=== PATIENT | male | born 1945 | race Caucasian/White ===

== ENCOUNTER 2024-03-18 07:23 | Inpatient (IN) ==
--- NOTE | 2024-03-18 07:38 | Emergency Department Note ---
Impression & Plan Weakness, Difficulty swallowing, Anemia, Pneumonia, Leukocytosis, Weight loss ED Provider Note NAME: FRANCES PÉREZ AGE: 78 SEX: M : 1945 ARRIVES VIA: Ambulance INFORMANT: [Patient] ED PROVIDER(S): [Devante Barajas MD] CHIEF COMPLAINT: Weakness HISTORY OF PRESENT ILLNESS: The patient is a 78-year-old male who lives alone. He does have a daughter who lives locally that visits from time to time. The patient states that he is responsible for his own meals. Over the last few months, the patient has lost maybe 40 pounds. He states the weight loss is because he cannot swallow. He only can drink boost. He cannot swallow solid foods and he believes the esophagus may be his problem. There has been no fever, no shortness of breath. He has not had vomiting or diarrhea. He has noticed increasing weakness lately to the point where he feels he can no longer be at home by himself. PMHx/PSHx/Social Hx: See Below PHYSICAL EXAM: GENERAL: Patient is in no acute distress. Quite thin and frail. HEENT: No acute trauma, normocephalic atraumatic, mucous membranes moist, no nasal congestion. NECK: No stridor, no adenopathy, no meningismus, trachea is midline. LUNGS: Clear to auscultation bilaterally, no wheeze, no rhonchi, breath sounds equal. Breath sounds somewhat diminished bilaterally. HEART: 2/6 systolic murmur, regular rate and rhythm. ABDOMEN: Soft, nontender, no peritonitis. EXTREMITIES: No cyanosis, full range of motion of all the joints without pain or difficulty. NEUROLOGIC: Oriented x 3, no acute motor or sensory deficits, no focal weakness. SKIN: No jaundice, no diaphoresis. DIFFERENTIAL DIAGNOSIS: Debilitation, dehydration, electrolyte imbalance, malnutrition, viral illness, pneumonia, esophageal narrowing, reflux, anemia, among others. EMERGENCY DEPARTMENT PROCEDURES: MEDICAL DECISION MAKING: There is a moderate leukocytosis, this would be consistent with infection. The patient is anemic, he has been anemic before however, today's value is below his previous values. Platelet count was slightly elevated. No renal failure or significant electrolyte abnormality. Lactic acid level is not elevated making sepsis less likely. There was no concerning liver enzyme elevation. The patient appeared to be in a euthyroid state. Urinalysis did not show infection. ECG showed a sinus rhythm, no acute ischemic change. Cardiac enzyme testing x 1 was not consistent with acute cardiac injury. Respiratory bio fire was completely negative. Chest CT shows a right sided pneumonia involving the right upper and right middle lung. On exam, the patient's lungs were clear. He was quite thin and frail appearing. The patient was given IV saline, 1 L. He received IV ceftriaxone as antibiotic coverage. The patient complains of some difficulty swallowing and weight loss. He was found to have pneumonia on workup. I suspect the pneumonia is secondary to aspiration. Given his findings, given his complaints, a hospital stay is warranted. I did speak with the patient and case management, the on-call hospitalist was consulted. Prior/Outside records/notes reviewed: Today's EMS notes describing his presentation and transport to this hospital. ECG per my interpretation: Indication was weakness. The ECG shows a sinus rhythm with a first-degree AV block. The rate is 90. There is some diffuse nonspecific ST change. There is no acute ST elevation, there are no PVCs. The QTc was 543. Continuous Cardiac Monitoring per my interpretation: An order was placed for continuous cardiac monitoring. The monitor shows a rate of 92 with normal sinus rhythm. Imaging/x-ray results per my interpretation: Chest x-ray shows a right upper lung pneumonia. There was no CHF. Chronic Medical/Social conditions affecting care: Advanced age. Care/Management discussed with: Case management, the on-call hospitalist. Level of care consideration(s): After review of the information above and other included data: --I believe the patient requires escalation of care to admission DISPOSITION: Admission Past Med/Surg History Problem List Weight loss (Acute) Leukocytosis (Acute) Pneumonia (Acute) Anemia (Acute) Difficulty swallowing (Acute) Weakness (Acute) Dysphagia Necrotizing pneumonia Aortic stenosis Hypercholesterolemia Right-sided lacunar stroke Left hemiparesis Ataxia (Acute) Left arm weakness (Acute) Hypertension Diabetes Cortez's palsy (Acute) Coronary artery disease (Chronic) Murmur Post-operative state Medical History CAD (coronary artery disease) Type 2 diabetes mellitus Pre-operative cardiovascular examination Dyslipidemia Social History Smoking Status: Former smoker Tobacco Type: Pipe Hx Alcohol Use: Yes Alcohol type: beer and wine Hx Substance Use: No Preferred Language: Persian Communication Ability: Effective Beliefs That Will Affect Care: None Current Living Situation: Alone Feels Safe at Home: Yes Assistive Devices: None Allergies Allergies Allergy/AdvReac Type Severity Reaction Status Date / Time No Known Allergies Allergy Verified 09/22/20 02:36 Home Meds Home Medications Medication Instructions 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 Botanical 1 tab PO DAILY 09/03/20 03/18/24 ascorbic acid (vitamin C) 1,000 mg 1 g PO DAILY 09/03/20 03/18/24 tablet (Vitamin C) aspirin 81 mg tablet,delayed 81 mg PO DAILY 09/03/20 03/18/24 release coenzyme Q10 100 mg capsule 600 mg PO DAILY 09/03/20 03/18/24 (CoQ-10) garlic 2,000 mg PO DAILY 09/03/20 03/18/24 isosorbide mononitrate 60 mg 60 mg PO DAILYBB 09/03/20 03/18/24 tablet,extended release 24 hr melatonin 5 mg tablet 5 mg PO HS 09/03/20 03/18/24 metformin 500 mg tablet 500 mg PO BID 09/03/20 03/18/24 (Glucophage) nitroglycerin 0.4 mg sublingual 0.4 mg sublingual UD PRN Chest Pain 09/03/20 03/18/24 tablet (Nitrostat) pantoprazole 40 mg tablet,delayed 40 mg PO UD 09/03/20 03/18/24 release saw palmetto 80 mg capsule 320 mg PO BID 09/03/20 03/18/24 tamsulosin 0.4 mg capsule (Flomax) 0.4 mg PO HS 09/03/20 03/18/24 [place] Bark Extract 1 tab PO DAILY 09/04/20 03/18/24 cholecalciferol (vitamin D3) 125 125 mcg PO DAILY 09/04/20 03/18/24 mcg (5,000 unit) tablet (Vitamin D3) multivitamin 1 tab PO DAILY 09/04/20 03/18/24 sennosides 8.6 mg tablet (senna) 17.2 mg PO HS 09/04/20 03/18/24 vitamin B complex 1 tab PO DAILY 09/04/20 03/18/24 atorvastatin 40 mg tablet 40 mg PO DAILY 09/22/20 03/18/24 omega 5-kaw-tnt-fish oil 1,000 mg 1 cap PO DAILY 09/22/20 03/18/24 (120 mg-180 mg) capsule (Fish Oil) zinc sulfate 50 mg zinc (220 mg) 220 mg PO DAILY PRN Other 09/22/20 03/18/24 tablet acetaminophen 325 mg capsule 650 mg PO Q4H PRN Pain 10/24/20 03/18/24 (Tylenol) lisinopril 2.5 mg tablet 2.5 mg PO DAILY 10/24/20 03/18/24 metoprolol tartrate 50 mg tablet 12.5 mg PO BID 10/24/20 03/18/24 (Lopressor) Calcium And Magnesium 1 tab PO DAILY 03/18/24 03/18/24 gabapentin 100 mg capsule 200 mg PO HS 03/18/24 03/18/24 (Neurontin) Results & Data (ED) Vital Signs Vital Signs - 24 hr 03/18/24 07:34 03/18/24 07:41 03/18/24 08:14 Temperature 37.2 C Temperature Source Oral Pulse Rate 92 H 90 86 Pulse Rate from SpO2 Sensor Pulse Rhythm Regular Regular Pulse Strength Normal Respiratory Rate 20 17 Respiratory Effort / Characteristics Non-Labored Spontaneous Respiratory Depth Normal Respiratory Pattern Regular Blood Pressure 103/81 Blood Pressure Mean 88 Blood Pressure Position Lying Pulse Oximetry 97 97 Oxygen Delivery Method Room Air Room Air Sepsis Recent Fever Within 48 Hours No Sepsis New/Unexplained Change in Mental Status No Sepsis Action Taken by Nursing No Action Required 03/18/24 11:00 03/18/24 11:35 03/18/24 12:00 Temperature Temperature Source Pulse Rate 87 84 81 Pulse Rate from SpO2 Sensor 85 83 Pulse Rhythm Pulse Strength Respiratory Rate 21 17 Respiratory Effort / Characteristics Respiratory Depth Respiratory Pattern Blood Pressure 108/60 103/53 L Blood Pressure Mean 76 69 Blood Pressure Position Pulse Oximetry 96 96 Oxygen Delivery Method Sepsis Recent Fever Within 48 Hours Sepsis New/Unexplained Change in Mental Status Sepsis Action Taken by Detention Medications Current Medication List: was personally reviewed by me Laboratory Data Attestation: I reviewed the patient's lab results. 03/18/24 08:01 03/18/24 08:01 Lab Results 03/18/24 03/18/24 03/18/24 Range/Units 08:01 08:05 08:05 WBC 17.69 H (4.8-10.8) K/ul RBC 3.78 L (4.70-6.10) M/uL Hgb 10.9 L (14.0-18.0) g/dl Hct 33.1 L (42.0-52.0) % MCV 87.6 (80.0-100.0) fL MCH 28.8 (25.0-34.0) pg MCHC 32.9 (32.0-36.0) g/dL RDW Std Deviation 41.3 (36.4-46.3) fL RDW Coeff of [place] 12.9 (11.5-14.5) % Plt Count 453 H (130-400) K/uL MPV 9.9 (9.4-12.4) fL Immature Gran % (Auto) 0.4 % Neut % (Auto) 87.9 % Lymph % (Auto) 3.8 % [place] % (Auto) 6.6 % Eos % (Auto) 1.1 % Baso % (Auto) 0.2 % Neut # (Auto) 15.56 H (1.40-6.50) K/uL Lymph # (Auto) 0.67 L (1.20-3.40) K/uL [place] # (Auto) 1.17 H (0.11-0.59) K/uL Eos # (Auto) 0.19 (0.00-0.50) K/uL Baso # (Auto) 0.03 (0.00-0.20) K/uL Immature Gran # (Auto) 0.07 (0.01-0.20) K/uL Sodium 136 (136-145) mmol/L Potassium 3.8 (3.5-5.1) mmol/L Chloride 96 L (98-107) mmol/L Carbon Dioxide 32 (21-32) mmol/L Anion Gap 8 (3-11) BUN 33 H (6-23) mg/dl Creatinine 0.94 (0.6-1.4) mg/dl Est Cr Clr Drug Dosing 54.6 ml/min Est GFR ( Amer) 89.6 ml/min Est GFR (Non-Af Amer) 77.3 ml/min BUN/Creatinine Ratio 35.1 H (10-20) Glucose 113 H (70-99(Fasting)) mg/dl Lactate (0.4-2.0) mmol/L Calcium 10.2 (8.6-10.3) mg/dl Magnesium 2.2 (1.7-2.4) mg/dl Total Bilirubin 0.6 (0.2-1.0) mg/dl AST 18 (13-39) U/L ALT 14 (7-52) U/L Alkaline Phosphatase 96 (34-104) U/L Troponin I High Sens 16.0 (0-20) pg/ml Total Protein 7.1 (6.0-8.3) gm/dl Albumin 3.4 (3.4-5.0) gm/dl Globulin 3.7 (2.5-4.0) gm/dl Albumin/Globulin Ratio 0.9 (0.9-2) TSH 2.995 (0.300-4.500) uIu/ml Urine Color Urine Appearance (Clear) Urine pH (4.5-7.5) Ur Specific [place] (1.000-1.030) Urine Protein (Negative) Urine Glucose (UA) (Negative) Urine Ketones (Negative) Urine Blood (Negative) Urine Nitrite (Negative) Urine Bilirubin (Negative) Urine Urobilinogen (Negative) Ur Leukocyte Esterase (Negative) Urine WBC (Auto) (0-5) /hpf Urine RBC (Auto) (0-2) /hpf U Hyaline Cast (Auto) (0-2) /lpf U Epithel Cells (Auto) (0-2) /hpf Urine Bacteria (Auto) (None Seen) Adenovirus (PCR) Not Detected (NotDetected) B. pertussis DNA (PCR) Not Detected (NotDetected) B.parapertussis DNA PCR Not Detected (NotDetected) C. pneumoniae DNA (PCR) Not Detected (NotDetected) Coronavirus OC43 (PCR) Not Detected (NotDetected) Coronavirus HKU1 (PCR) Not Detected (NotDetected) Coronavirus 229E (PCR) Not Detected (NotDetected) SARS-CoV-2 (PCR) NEGATIVE Not Detected (Negative) Coronavirus NL63 (PCR) Not Detected (NotDetected) Human Metapneumovir PCR Not Detected (NotDetected) Influenza Type A (PCR) Negative (Neg) Influenza Type B (PCR) (Neg) M. pneumoniae (PCR) (NotDetected) Parainfluenza 1 (PCR) (NotDetected) Parainfluenza 2 (PCR) (NotDetected) Parainfluenza 3 (PCR) (NotDetected) Parainfluenza 4 (PCR) (NotDetected) RSV (RT-PCR) (Neg) RSV (PCR) (NotDetected) Entero/Rhino (PCR) (NotDetected) 03/18/24 03/18/24 03/18/24 Range/Units 08:05 08:05 08:33 WBC (4.8-10.8) K/ul RBC (4.70-6.10) M/uL Hgb (14.0-18.0) g/dl Hct (42.0-52.0) % MCV (80.0-100.0) fL MCH (25.0-34.0) pg MCHC (32.0-36.0) g/dL RDW Std Deviation (36.4-46.3) fL RDW Coeff of [place] (11.5-14.5) % Plt Count (130-400) K/uL MPV (9.4-12.4) fL Immature Gran % (Auto) % Neut % (Auto) % Lymph % (Auto) % [place] % (Auto) % Eos % (Auto) % Baso % (Auto) % Neut # (Auto) (1.40-6.50) K/uL Lymph # (Auto) (1.20-3.40) K/uL [place] # (Auto) (0.11-0.59) K/uL Eos # (Auto) (0.00-0.50) K/uL Baso # (Auto) (0.00-0.20) K/uL Immature Gran # (Auto) (0.01-0.20) K/uL Sodium (136-145) mmol/L Potassium (3.5-5.1) mmol/L Chloride (98-107) mmol/L Carbon Dioxide (21-32) mmol/L Anion Gap (3-11) BUN (6-23) mg/dl Creatinine (0.6-1.4) mg/dl Est Cr Clr Drug Dosing ml/min Est GFR ( Amer) ml/min Est GFR (Non-Af Amer) ml/min BUN/Creatinine Ratio (10-20) Glucose (70-99(Fasting)) mg/dl Lactate 1.0 (0.4-2.0) mmol/L Calcium (8.6-10.3) mg/dl Magnesium (1.7-2.4) mg/dl Total Bilirubin (0.2-1.0) mg/dl AST (13-39) U/L ALT (7-52) U/L Alkaline Phosphatase (34-104) U/L Troponin I High Sens (0-20) pg/ml Total Protein (6.0-8.3) gm/dl Albumin (3.4-5.0) gm/dl Globulin (2.5-4.0) gm/dl Albumin/Globulin Ratio (0.9-2) TSH (0.300-4.500) uIu/ml Urine Color Urine Appearance (Clear) Urine pH (4.5-7.5) Ur Specific [place] (1.000-1.030) Urine Protein (Negative) Urine Glucose (UA) (Negative) Urine Ketones (Negative) Urine Blood (Negative) Urine Nitrite (Negative) Urine Bilirubin (Negative) Urine Urobilinogen (Negative) Ur Leukocyte Esterase (Negative) Urine WBC (Auto) (0-5) /hpf Urine RBC (Auto) (0-2) /hpf U Hyaline Cast (Auto) (0-2) /lpf U Epithel Cells (Auto) (0-2) /hpf Urine Bacteria (Auto) (None Seen) Adenovirus (PCR) (NotDetected) B. pertussis DNA (PCR) (NotDetected) B.parapertussis DNA PCR (NotDetected) C. pneumoniae DNA (PCR) (NotDetected) Coronavirus OC43 (PCR) (NotDetected) Coronavirus HKU1 (PCR) (NotDetected) Coronavirus 229E (PCR) (NotDetected) SARS-CoV-2 (PCR) (Negative) Coronavirus NL63 (PCR) (NotDetected) Human Metapneumovir PCR (NotDetected) Influenza Type A (PCR) Not Detected (Neg) Influenza Type B (PCR) Negative Not Detected (Neg) M. pneumoniae (PCR) Not Detected (NotDetected) Parainfluenza 1 (PCR) Not Detected (NotDetected) Parainfluenza 2 (PCR) Not Detected (NotDetected) Parainfluenza 3 (PCR) Not Detected (NotDetected) Parainfluenza 4 (PCR) Not Detected (NotDetected) RSV (RT-PCR) Negative (Neg) RSV (PCR) Not Detected (NotDetected) Entero/Rhino (PCR) Not Detected (NotDetected) 03/18/24 Range/Units 11:18 WBC (4.8-10.8) K/ul RBC (4.70-6.10) M/uL Hgb (14.0-18.0) g/dl Hct (42.0-52.0) % MCV (80.0-100.0) fL MCH (25.0-34.0) pg MCHC (32.0-36.0) g/dL RDW Std Deviation (36.4-46.3) fL RDW Coeff of [place] (11.5-14.5) % Plt Count (130-400) K/uL MPV (9.4-12.4) fL Immature Gran % (Auto) % Neut % (Auto) % Lymph % (Auto) % [place] % (Auto) % Eos % (Auto) % Baso % (Auto) % Neut # (Auto) (1.40-6.50) K/uL Lymph # (Auto) (1.20-3.40) K/uL [place] # (Auto) (0.11-0.59) K/uL Eos # (Auto) (0.00-0.50) K/uL Baso # (Auto) (0.00-0.20) K/uL Immature Gran # (Auto) (0.01-0.20) K/uL Sodium (136-145) mmol/L Potassium (3.5-5.1) mmol/L Chloride (98-107) mmol/L Carbon Dioxide (21-32) mmol/L Anion Gap (3-11) BUN (6-23) mg/dl Creatinine (0.6-1.4) mg/dl Est Cr Clr Drug Dosing ml/min Est GFR ( Amer) ml/min Est GFR (Non-Af Amer) ml/min BUN/Creatinine Ratio (10-20) Glucose (70-99(Fasting)) mg/dl Lactate (0.4-2.0) mmol/L Calcium (8.6-10.3) mg/dl Magnesium (1.7-2.4) mg/dl Total Bilirubin (0.2-1.0) mg/dl AST (13-39) U/L ALT (7-52) U/L Alkaline Phosphatase (34-104) U/L Troponin I High Sens (0-20) pg/ml Total Protein (6.0-8.3) gm/dl Albumin (3.4-5.0) gm/dl Globulin (2.5-4.0) gm/dl Albumin/Globulin Ratio (0.9-2) TSH (0.300-4.500) uIu/ml Urine Color Yellow Urine Appearance Cloudy A (Clear) Urine pH 8.5 H (4.5-7.5) Ur Specific [place] > 1.045 H (1.000-1.030) Urine Protein 1+ H (Negative) Urine Glucose (UA) Negative (Negative) Urine Ketones Negative (Negative) Urine Blood Negative (Negative) Urine Nitrite Negative (Negative) Urine Bilirubin Negative (Negative) Urine Urobilinogen Negative (Negative) Ur Leukocyte Esterase Negative (Negative) Urine WBC (Auto) 0-5 (0-5) /hpf Urine RBC (Auto) 3-5 H (0-2) /hpf U Hyaline Cast (Auto) 0-2 (0-2) /lpf U Epithel Cells (Auto) 0-2 (0-2) /hpf Urine Bacteria (Auto) None Seen (None Seen) Adenovirus (PCR) (NotDetected) B. pertussis DNA (PCR) (NotDetected) B.parapertussis DNA PCR (NotDetected) C. pneumoniae DNA (PCR) (NotDetected) Coronavirus OC43 (PCR) (NotDetected) Coronavirus HKU1 (PCR) (NotDetected) Coronavirus 229E (PCR) (NotDetected) SARS-CoV-2 (PCR) (Negative) Coronavirus NL63 (PCR) (NotDetected) Human Metapneumovir PCR (NotDetected) Influenza Type A (PCR) (Neg) Influenza Type B (PCR) (Neg) M. pneumoniae (PCR) (NotDetected) Parainfluenza 1 (PCR) (NotDetected) Parainfluenza 2 (PCR) (NotDetected) Parainfluenza 3 (PCR) (NotDetected) Parainfluenza 4 (PCR) (NotDetected) RSV (RT-PCR) (Neg) RSV (PCR) (NotDetected) Entero/Rhino (PCR) (NotDetected) Administered Medications Discontinued Medications Sodium Chloride (Nss) 1,000 mls @ 999 mls/hr IV .Q1H1M SOPHIA Stop: 03/18/24 08:45 Last Infusion: 03/18/24 09:04 Dose: Infused Documented By: Admin: 03/18/24 08:04 Dose: 999 mls/hr Documented By: Ceftriaxone Sodium (Rocephin) 2,000 mg in 50 mls @ 100 mls/hr IV NOW STA Stop: 03/18/24 09:09 Last Infusion: 03/18/24 09:25 Dose: Infused Documented By: Admin: 03/18/24 08:55 Dose: 100 mls/hr Documented By: Ampicillin Sodium/Sulbactam Sodium (Unasyn) 3,000 mg in 100 mls @ 200 mls/hr IV ONE STA Stop: 03/18/24 13:33 Last Admin: 03/18/24 13:17 Dose: 200 mls/hr Documented By: GEORGE Ioversol (Optiray 320 100ml) 94 ml IV ONCE ONE Stop: 03/18/24 09:19 Last Admin: 03/18/24 09:19 Dose: 94 ml Documented By: SANTINO Imaging Data Radiologist's Impression: Chest X-Ray 03/18/24 07:34 XR chest 1V portable CLINICAL HISTORY: weakness COMPARISON STUDY: Chest radiograph February 15, 2023. FINDINGS: There are median sternotomy wires and mediastinal surgical clips. Mild cardiomegaly is unchanged. There is no pneumothorax. Small right pleural effusion is present. This may be loculated. There is asymmetric interstitial thickening within the right lung. In addition, right upper lung airspace opacity is noted, including a 5.4 cm right upper lung density. IMPRESSION: 1. Right upper lung airspace opacity, including a 5.4 cm opacity. This may reflect pneumonia. However, a mass could appear similar. A chest CT is recommended for further evaluation. 2. Asymmetric interstitial thickening within the right lung and a small, likely loculated, right pleural effusion which can be assessed on follow-up CT. ACT 112: Positive. There are findings on this exam that require communication between the performing entity and the patient following Patient Test Result Information Act ([place] Act 112) guidelines. Electronically signed by: Micheal Escobar M.D. 03/18/2024 8:[address] 03/18/24 08:45 CT OF THE CHEST WITH IV CONTRAST CLINICAL HISTORY: likely pneumonia on xray COMPARISON STUDY: Chest radiograph February 15, 2023 and March 18, 2024. TECHNIQUE: Following IV administration of 94 mL of Optiray, helical axial images of the chest were obtained. Sagittal and coronal reconstructions were viewed as well as maximal intensity projections on an independent 3-D workstation. Automated exposure control was utilized for the study. A dose lowering technique was utilized adhering to the principles of ALARA. CT DOSE: 369.44 mGy.cm FINDINGS: A prominent left supraclavicular lymph node measures 1.5 x 0.9 cm. A prominent subcarinal lymph node measures 1.7 x 1.1 cm. There are median sternotomy wires. Postoperative findings from bypass grafting are noted. There is moderate aortic valvular calcification. The heart is mildly enlarged. There is no pericardial effusion. No pneumothorax or pleural effusion is present. The central airways are patent. There is a small hiatal hernia. Note is made of extensive right upper lobe and right middle lobe consolidation with small foci of cavitation. Areas of decreased attenuation within the lungs are present. There are scattered alveolar opacities within the right lower lobe. Left lung is clear. No suspicious lesions within the bony thorax are present. Visualized portions of the upper abdomen are unremarkable. IMPRESSION: 1. Extensive right upper lobe and right middle lobe consolidation with multiple small foci of cavitation. The findings suggest necrotizing pneumonia. A follow- up chest CT in 2 months to ensure resolution is recommended. 2. Scattered alveolar opacities within the right lower lobe, also infectious. 3. Prominent mediastinal and left supraclavicular lymph nodes. These may be reactive and can be assessed on follow-up CT. ACT 112: Negative or not required by law. Electronically signed by: Micheal Escobar M.D. 03/18/2024 9:57 AM Discharge Plan Visit Data Chief Complaint: Weakness Stated Complaint: WEAKNESS ED Provider: Devanet Barajas Discharge Problem: Weakness, Difficulty swallowing, Anemia, Pneumonia, Leukocytosis, Weight loss Patient Disposition: Admitted As Inpatient Condition: Fair Forms Stand Alone Forms: Important Visit Information Prescriptions Prescriptions: No Action lisinopril 2.5 mg tablet 2.5 mg PO DAILY acetaminophen [Tylenol] 325 mg capsule 650 mg PO Q4H PRN (Reason: Pain) metformin [Glucophage] 500 mg tablet 500 mg PO BID aspirin 81 mg Tablet,Delayed Release (Dr/Ec) 81 mg PO DAILY isosorbide mononitrate 60 mg tablet extended release 24 hr 60 mg PO DAILYBB tamsulosin [Flomax] 0.4 mg capsule 0.4 mg PO HS pantoprazole 40 mg tablet,delayed release (DR/EC) 40 mg PO UD Rx Instructions: not currently using medication wanted left on list nitroglycerin [Nitrostat] 0.4 mg Tablet, Sublingual 0.4 mg sublingual UD PRN (Reason: Chest Pain) melatonin 5 mg Tablet 5 mg PO HS Rx Instructions: take 1 hour before hs saw palmetto 80 mg Capsule 320 mg PO BID ascorbic acid (vitamin C) [Vitamin C] 1,000 mg Tablet 1 g PO DAILY garlic Tablet 2,000 mg PO DAILY coenzyme Q10 [CoQ-10] 100 mg Capsule 600 mg PO DAILY 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 Botanical 1 tab PO DAILY Rx Instructions: 250-225 metoprolol tartrate [Lopressor] 50 mg tablet 12.5 mg PO BID multivitamin Tablet 1 tab PO DAILY vitamin B complex Tablet 1 tab PO DAILY cholecalciferol (vitamin D3) [Vitamin D3] 125 mcg (5,000 unit) Tablet 125 mcg PO DAILY [place] Bark Extract 1 tab PO DAILY sennosides [senna] 8.6 mg Tablet 17.2 mg PO HS zinc sulfate 220 mg Tablet 220 mg PO DAILY PRN (Reason: Other) Rx Instructions: per pt he doesn't take regularly omega 0-uax-nra-fish oil [Fish Oil] 1,000 mg (120 mg-180 mg) Capsule 1 cap PO DAILY atorvastatin 40 mg tablet 40 mg PO DAILY Calcium And Magnesium 1 tab PO DAILY gabapentin [Neurontin] 100 mg capsule 200 mg PO HS Discharge Problem: Difficulty swallowing Qualifiers: Dysphagia type: unspecified Qualified Code(s): R13.10 - Dysphagia, unspecified Anemia Qualifiers: Anemia type: unspecified type Qualified Code(s): D64.9 - Anemia, unspecified Pneumonia Qualifiers: Pneumonia type: due to unspecified organism Laterality: right Lung location: u nspecified part of lung Qualified Code(s): J18.9 - Pneumonia, unspecified organism Leukocytosis Qualifiers: Leukocytosis type: unspecified Qualified Code(s): D72.829 - Elevated white blood cell count, unspecified
--- OUTSIDE RECORDS SUMMARY | 2024-03-18 07:39 | External Medical Summary | Summary of Care ---
Author Name Unknown Organization [facility] Address [address] [place] [address] Phone [phone] Care Team Providers Care Chemical Radiation Technician Name Role Phone Kristine Augustin MD Primary Care Provider [phone] Reason for Visit * Reason Onset Date Comments Appointment 03/17/2024 Encounter Details Date Type Department Care Team (Late st Contact Info) Description 03/17/2024 Telephone [facility], [place] [address] [place] [id number] Services, Scheduling [address] [place] [address] Appointment Allergies Active Allergy Reactions Criticality Noted Date Comments Dust 10/30/2020 Pollen 02/19/2011 Hay Fever documented as of this encounter (statuses as of 03/17/2024) Medications Medication Sig Dispensed Refills Start Date End Date Status [id number] OIL-VITAMIN E PO CAPS one capsule by mouth daily Active 4X PROBIOTIC PO TABS one daily 09/01/2013 Active VITAMIN D3 3000 UNITS PO TABS Take by mouth. Pt taking 5000 units 09/01/2013 Active B COMPLEX 50 PO TABS one daily 09/01/2013 Active GARLIC PO TABS one daily 09/01/2013 Active CO Q 10 100 MG PO CAPS 600 mg daily 09/01/2013 Active TURMERIC CURCUMIN PO CAPS 750 mg daily 09/01/2013 Active NATURAL SUPPLEMENT enzogenol pine bark 09/01/2013 Active Multiple Vitamins-Minerals (MULTIVITAMIN MEN) TABS Take 1 Tab by mouth. 01/06/2018 Active Aspirin 81 MG Oral Tablet Delayed ReleaseIndications :Aortocoronary bypass status Take 1 Tablet by mouth in the morning. 01/08/2018 Active Linoleic Acid LIQD Take 1 Dose by mouth daily. Active Zinc Sulfate 220 (50 Zn) MG Oral Capsule 1 Capsule. 09/26/2020 Active Magnesium Oxide 400 MG Oral Tablet 1 Tablet. 09/26/2020 Active Sennosides 8.6 MG Oral Tablet (Senokot) 2 Tablets every evening. 10/13/2020 Active Gabapentin 100 MG Oral Capsule (Neurontin)Indicat ions:Chronic left-sided low back pain with left-sided sciatica Take 2 Capsules by mouth at bedtime. 180 Capsule 3 06/19/2023 Active Atorvastatin Calcium 40 MG Oral Tablet (Lipitor)Indicatio ns:Dyslipidemia, goal LDL below 70 TAKE ONE TABLET BY MOUTH EVERY DAY 90 Tablet 1 11/27/2023 Active Isosorbide Mononitrate ER 60 MG Oral Tablet Extended Release 24 Hour (Imdur)Indications :Coronary artery disease involving [place] coronary artery of [place] heart without angina pectoris,Aortocoro nary bypass status TAKE ONE TABLET BY MOUTH EVERY MORNING 90 Tablet 1 11/27/2023 Active Pantoprazole Sodium 40 MG Oral Tablet Delayed Release (Protonix)Indicati ons:BPH with obstruction/lower urinary tract symptoms TAKE ONE TABLET BY MOUTH EVERY MORNING 90 Tablet 1 11/27/2023 Active Additional Information Patient not taking.Reported on 03/02/2024 Lisinopril 2.5 MG Oral Tablet (Prinivil)Indicati ons: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) TAKE ONE TABLET BY MOUTH EVERY MORNING 90 Tablet 1 11/27/2023 Active Metoprolol Tartrate 50 MG Oral Tablet (Lopressor)Indicat ions: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) TAKE ONE TABLET BY MOUTH TWICE A DAY IN THE MORNING AND BEFORE BEDTIME 180 Tablet 1 11/27/2023 Active Additional Information Patient taking differently: Taking 12.5mg twice a day, Reported on 03/02/2024 metFORMIN HCl 500 MG Oral Tablet (Glucophage)Indica tions:Impaired fasting glucose TAKE ONE TABLET BY MOUTH TWICE A DAY WITH MORNING AND EVENING MEALS 180 Tablet 1 11/27/2023 Active Tamsulosin HCl 0.4 MG Oral Capsule (Flomax)Indication s:BPH with obstruction/lower urinary tract symptoms TAKE ONE CAPSULE BY MOUTH EVERY MORNING 90 Capsule 1 11/27/2023 Active Melatonin 5 MG Oral TabletIndications: Other insomnia TAKE ONE TABLET BY MOUTH EVERY DAY 1 HOUR BEFORE BEDTIME 90 Tablet 3 01/12/2024 01/11/2025 Active Vitron-C 65-125 MG Oral Tablet (Iron-Vitamin C 65-125 mg per tab) Take 1 Tablet by mouth in the morning. 03/03/2024 Active documented as of this encounter (statuses as of 03/17/2024) Active Problems Problem Noted Date Diagnosed Date Cerebrovascular disease, arteriosclerotic, 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 Overview: Rt basal ganglia few lacune infarcts Nonrheumatic mitral valve regurgitation 06/17/20 19 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 Prediabetes 08/17/2018 Overview: Per Prediabetes protocol #1 Coronary artery disease invo lving [place] coronary artery of [place] heart without angina pectoris Aortocoronary bypass status Gastroesophageal reflux disease without esophagi tis Dyslipidemia, goal LDL below 70 documented as of this encounter (statuses as of 03/17/2024) Resolved Problems Problem Noted Date Diagnosed Date Resolved Date Atherosclerosis of [place] co ronary artery of [place] heart with angina pectoris 04/08/20182022 Cough 07/06/2010 04/08/2018 Sinus tachycardia 07/06/2010 04/08/2018 documented as of this encounter (statuses as of 03/17/2024) Immunizations Name Administration Dates Next Due COVID-19 mRNA, LNP-s, No Pre serve, 2-Dose Series (Pfizer) 02/28/2021,01/31/2021 Covid-19, Mrna, Lnp-s, Pf, B ivalent, 30 Mcg, IM, 12 yrs and above (Pfizer) 05/15/2022 Pneumococcal Conjugate Vacc, 13 Valent (Prevnar) 01/08/2018 Pneumococcal Polysaccharide PPV23 (Pneumovax) 06/13/2010 Season Influenza, Quad, PF, Adjuvanted, 65+ Yrs, IM (FLUAD) 04/30/2021,09/15/2020 Seasonal Influenza, PF, 6 M & above, IM , (FluLaval or Fluzone) 08/08/2018 Seasonal Influenza, Split, I IV3, With Preserve, Inj 09/01/2013,05/08/2011,06/13/2010 Seasonal Influenza, Trivalen t, Adjuvanted, 65+ yrs 05/15/2022,06/17/2019 TDAP (age 10 and older)(Boostrix) 02/02/2014 Varicella Zoster Vaccine (Adult) 05/04/2011 Zoster Vaccine Recombinant (Shingrix) 04/19/2021 ,09/15/2020 documented as of this encounter Social History Tobacco Use Types Packs/Day Years Used Date Smoking Tobacco: Never Smokeless Tobacco: Never Alcohol Use Standard Drinks/Week Comments Yes 0 (1 standard drink = 0.6 oz pur e alcohol) occasional PHQ-2 Answer Date Recorded PHQ Adult Total Score 0 02/13/2023 Hunger Vital Sign Answer Date Recorded Within the past 12 months, y ou worried that your food would run out before you got the money to buy more. Never true 02/14/20 23 Within the past 12 months, t he food you bought just didn't last and you didn't have money to get more. Never true 02/13/2023 Utilities Answer Date Recorded Do you have trouble paying y our heating, water, or electric bill? (Adult - for ages 18 years and over) Not on file 01/20/2024 Is your family able to pay t he heat, water, or electric bill? (Household - for ages 0-17 years) Not on file 01/20/2024 Does your family have access to good internet? (Household - for ages 0-17 years) Not on file 01/20/2024 Social Connections Answer Date Recorded How often do you feel lonely or isolated from those around you? (Adult - for ages 18 years and over) Not on file 01/20/2024 Sex and Gender Information Value Date Recorded Sex Assigned at Male 04/11/2021 8:35 PM EDT Gender Identity Male 04/11/2021 8:35 PM EDT Sexual Orientation Straight 04/11/2021 8: 35 PM EDT Job Start Date Occupation Industry Not on file Not on file Not on file documented as of this encounter Miscellaneous Notes * Telephone Encounter - Maegan Ritter OSA - 03/17/2024 11:46 AM EDT [facility] Engagement Attempt Engagement: Engagement Attempt 1: Unable to contact Engagement Attempt 2: Unable to contact Engagement Attempt 3: No data was found Home Information: No data was found Advance Care Planning (ACP): No data was found Has Living Will or Advance Directive: No data was found Anticipated Sub-Program: Focused Care Management (3-9 months) Confirmation of Sub-Program Type (by care merchandise flow team leader): No data was found Handoff Information: Current care team notified via: No data was found Current telemonitoring equipment: No data was found documented in this encounter Plan of Treatment Upcoming Encounters Date Type Department Care Team (Late st Contact Info) Description 04/27/2024 11:00 AM EDT Office Visit Cardiology, [facility] [address] [place] [address] Mao Alcantara, [address] [place] [address] Health Maintenance Due Date Last Done Comments Hepatitis C Screening 1963 Adult Wellness Visit 09/15/2021 09/15/2020 COVID-19 Vaccine ( season) 2023 05/15/2022, 02/28/2021, 01/31/2021 DTaP,Tdap,and Td Vaccines (2 - Td or Tdap) 02/03/2024 02/02/2014 Depression Screening 02/14/2024 02/13/2023 HbA1c 02/14/2024 02/13/2023, 03/04, 04/19/2021, Additional history exists Influenza Vaccine (FLU shot) (#1) 2024 05/15/2022, 04/30/2021, 09/15/2020, Additional history exists B-12 03/02/2025 03/02/2024, 03/04, 07/15/2020, Additional history exists Pneumococcal Vaccine: 65+ Years Completed 01/08/2018, 06/13/2010 Zoster Vaccines Completed 04/19/2021, 09/04, 05/04/2011 HPV (Gardasil) Vaccine Aged Out No lo nger eligible based on patient's age to complete this topic Hepatitis B Vaccine Aged Out No longe r eligible based on patient's age to complete this topic MENINGOCOCCAL (MENACTRA/MENVEO) Aged Out No longer eligible based on patient's age to complete this topic documented as of this encounter Medical Devices Not on filedocumented as of this encounter Care Teams Chemical Radiation Technician Relationship Specialty Start Date End Date Kristine Augustin MD [address] [place] [address] PCP - General 06/13/10 documented as of this encounter
--- OUTSIDE RECORDS SUMMARY | 2024-03-18 07:40 | External Medical Summary | Summary of Care ---
Author Name Unknown Organization [facility] Address [address] [place] [address] Phone [phone] Care Team Providers Care Service Station Console Operator Name Role Phone Kristine Augustin MD Primary Care Provider [phone] Encounter Details Date Type Department Care Team (Latest Contact Info) Description 09/22/2020 2:05 AM EST - 09/22/2020 11:59 PM EST Hospital Encounter Radiology Film File [address] [place] [address] Discharge Disposition: Home - Self Care Allergies Active Allergy Reactions Criticality Noted Date Comments Dust 10/30/2020 Pollen 02/19/2011 Hay Fever documented as of this encounter (statuses as of 03/04/2024) Medications Medication Sig Dispensed Refills Start Date End Date Status [id number] OIL-VITAMIN E PO CAPS one capsule by mouth daily Active 4X PROBIOTIC PO TABS one daily 09/01/2013 Acti ve VITAMIN D3 3000 UNITS PO TABS Take by mouth. Pt taking 5000 units 09/01/2013 Active B COMPLEX 50 PO TABS one daily 09/01/2013 Acti ve GARLIC PO TABS one daily 09/01/2013 Active CO Q 10 100 MG PO CAPS 600 mg daily 09/01/2013 Active TURMERIC CURCUMIN PO CAPS 750 mg daily 09/01/2013 Active NATURAL SUPPLEMENT enzogenol pine bark 09/01/2013 Active Multiple Vitamins-Minerals (MULTIVITAMIN MEN) TABS Take 1 Tab by mouth. 01/06/2018 Active Aspirin 81 MG Oral Tablet Delayed ReleaseIndications:Ao rtocoronary bypass status Take 1 Tablet by mouth in the morning. 01/08/2018 Active Linoleic Acid LIQD Take 1 Dose by mouth daily. 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 Prediabetes 08/17/2018 Overview: Per Prediabetes protocol #1 Coronary artery disease invo lving sam[place] coronary artery of samish heart without angina pectoris Aortocoronary bypass status Gastroesophageal reflux disease without esophagi tis Dyslipidemia, goal LDL below 70 documented as of this encounter (statuses as of 03/04/2024) Resolved Problems Problem Noted Date Diagnosed Date Resolved Date Atherosclerosis of samish co ronary artery of samish heart with angina pectoris 04/08/20182022 Cough 07/06/2010 04/08/2018 Sinus tachycardia 07/06/2010 04/08/2018 documented as of this encounter (statuses as of 03/04/2024) Immunizations Name Administration Dates Next Due Pneumococcal Conjugate Vacc, 13 Valent (Prevnar) 01/08/2018 Pneumococcal Polysaccharide PPV23 (Pneumovax) 06/13/2010 Season Influenza, Quad, PF, Adjuvanted, 65+ Yrs, IM (FLUAD) 09/15/2020 Seasonal Influenza, PF, 6 M & above, IM , (FluLaval or Fluzone) 08/08/2018 Seasonal Influenza, Split, I IV3, With Preserve, Inj 09/01/2013,05/08/2011,06/13/2010 Seasonal Influenza, Trivalen t, Adjuvanted, 65+ yrs 06/17/2019 TDAP (age 10 and older)(Boostrix) 02/02/2014 Varicella Zoster Vaccine (Adult) 05/04/2011 Zoster Vaccine Recombinant (Shingrix) 09/15/2020 documented as of this encounter Social History [...] on file documented as of this encounter Plan of Treatment Upcoming Encounters Date Type Department Care Team (Late st Contact Info) Description 03/09/2024 2:15 PM EDT Imaging Radiology [facility] [place] [address] [place] [address] 03/16/2024 2:00 PM EDT Cardiac Studies Cardiac Studies, [facility] [address] [place] [address] 04/27/2024 11:00 AM EDT Office Visit Cardiology, [facility] [address] [place] [address] Mao Alcantara, [address] [place] [address] Health Maintenance Due Date Last Done Comments Hepatitis C Screening 1963 COVID-19 Vaccine (4 - 2022-24 season) 2023 05/15/2022, 02/28/2021, 01/31/2021 DTaP,Tdap,and Td [...] Not on filedocumented as of this encounter Procedures Procedure Name Priority Date/Time Associated Diagnosis Comments RADIOLOGY EXAM - CT (IMAGES ONLY, NO REPORT) Routine 09/22/2020 2:05 AM EST documented in this encounter Results * RADIOLOGY EXAM - CT (IMAGES ONLY, NO REPORT) (09/22/2020 2:05 AM EST) 09/22/2020 2:05 AM EST Narrative Scheduling, Silent - 03/03/2024 2:18 PM EDT This is an imaging study not interpreted or resulted by a [facility] or [facility] contracted radiologist. Mao Alcantara DO RAD CT documented in this encounter Care Teams Service Station Console Operator Relationship Specialty Start Date End Date Kristine Augustin MD [address] [place] [address] PCP - General 06/13/10 documented as of this encounter
--- OUTSIDE RECORDS SUMMARY | 2024-03-18 07:40 | External Medical Summary | Summary of Care ---
Author Name Unknown Organization [facility] Address [address] [place] [address] Phone [phone] Care Team Providers Care Site Director Name Role Phone Kristine Augustin MD Primary Care Provider [phone] Reason for Visit * Reason Onset Date Comments [facility]: Screening 03/11/2024 Encounter Details Date Type Department Care Team (Late st Contact Info) Description 03/11/2024 Telephone [facility], [facility] [address] [place] [address] [facility], Nurse [facility] [address] [place] [address] [facility]: Screening Allergies Active Allergy Reactions Criticality Noted Date Comments Dust 10/30/2020 Pollen 02/19/2011 Hay Fever documented as of this encounter (statuses as of 03/11/2024) Medications Medication Sig Dispensed Refills Start Date End Date Status [id number] OIL-VITAMIN E PO CAPS one capsule by [...] 24 Hour (Imdur)Indications :Coronary artery disease involving [place] coronary artery of [place] heart without angina pectoris,Aortocoro nary bypass status [...] s of coronary artery bypass graft of [place] heart with angina pectoris (HCC) TAKE ONE TABLET BY MOUTH EVERY MORNING 90 Tablet 1 11/27/2023 Active Metoprolol Tartrate 50 MG Oral Tablet (Lopressor)Indicat ions: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) TAKE ONE [...] as of this encounter (statuses as of 03/11/2024) Active Problems Problem Noted Date Diagnosed Date Cerebrovascular disease, arteriosclerotic, 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 Overview: Rt basal ganglia few lacune infarcts Nonrheumatic mitral valve regurgitation 06/17/20 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 Prediabetes 08/17/2018 Overview: Per Prediabetes protocol #1 Coronary artery disease invo lving [place] coronary artery of [place] heart without angina pectoris Aortocoronary bypass status Gastroesophageal reflux disease without esophagi tis Dyslipidemia, goal LDL below 70 documented as of this encounter (statuses as of 03/11/2024) Resolved Problems Problem Noted Date Diagnosed Date Resolved Date Atherosclerosis of [place] co ronary artery of [place] heart with angina pectoris 04/08/20182022 Cough 07/06/2010 04/08/2018 Sinus tachycardia 07/06/2010 04/08/2018 documented as of this encounter (statuses as of 03/11/2024) Immunizations Name Administration Dates Next Due COVID-19 mRNA, LNP-s, No Pre serve, 2-Dose Series ([employer]) 02/28/2021,01/31/2021 Covid-19, Mrna, Lnp-s, Pf, B ivalent, [...] encounter Miscellaneous Notes * Telephone Encounter - Tiny Haynes LPN - 03/11/2024 9:38 AM EDT 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 A review of this chart was completed and: Nas meets criteria for [facility]. Jump to Initiation Referring care team was notified via : Epic communication documented in this encounter Plan of Treatment Upcoming Encounters Date Type Department Care Team (Late st Contact Info) Description 03/16/2024 2:00 PM EDT Cardiac Studies Cardiac Studies, [facility] [address] [place] [address] 04/27/2024 11:00 AM EDT Office Visit Cardiology, [facility] [address] [place] [address] Mao Alcantara, [address] [place] [address] Health Maintenance Due Date Last Done Comments Hepatitis C Screening 1963 Adult Wellness Visit 09/15/2021 09/15/2020 COVID-19 Vaccine ( - 2022- season) 2023 05/15/2022, 02/28/2021, 01/31/2021 DTaP,Tdap,and Td [...] filedocumented as of this encounter Care Teams Site Director Relationship Specialty Start Date End Date Kristine Augustin MD [address] [facility] [place] [address] PCP - General 06/13/10 documented as of this encounter
--- OUTSIDE RECORDS SUMMARY | 2024-03-18 07:40 | External Medical Summary | Summary of Care ---
Author Name Unknown Organization [facility] Address [address] [place] [address] Phone [phone] Care Team Providers Care Registered Radiation Therapist Name Role Phone Kristine Augustin MD Primary Care Provider [phone] Reason for Visit * Reason Onset Date Comments Test Results 03/03/2024 Encounter Details Date Type Department Care Team (Late st Contact Info) Description 03/03/2024 Telephone Cardiology, [facility] [address] [facility] [place] [address] Mao Alcantara, [address] [place] [address] Test Results Allergies Active Allergy Reactions Criticality Noted Date Comments Dust 10/30/2020 Pollen 02/19/2011 Hay Fever documented as of this encounter (statuses as of 03/04/2024) Medications Medication Sig Dispensed Refills Start Date End Date Status [id number] OIL-VITAMIN E PO CAPS one capsule by [...] SUPPLEMENT enzogenol pine bark 09/01/2013 Active Multiple Vitamins-Mineral s (MULTIVITAMIN MEN) TABS Take 1 Tab by mouth. 01/06/2018 Active Aspirin 81 MG Oral Tablet Delayed ReleaseIndicatio ns:Aortocoronary bypass status Take 1 Tablet by mouth in the morning. 01/08/2018 Active Linoleic Acid LIQD Take 1 Dose by mouth daily. Active Zinc Sulfate 220 (50 Zn) MG Oral Capsule 1 Capsule. 09/26/2020 Active Magnesium Oxide 400 MG Oral Tablet 1 Tablet. 09/26/2020 Active Sennosides 8.6 MG Oral Tablet (Senokot) 2 Tablets every evening. 10/13/2020 Active Gabapentin 100 MG Oral Capsule (Neurontin)Indic ations:Chronic left-sided low back pain with left-sided sciatica Take 2 Capsules by mouth at bedtime. 180 Capsule 3 06/19/2023 Active Atorvastatin Calcium 40 MG Oral Tablet (Lipitor)Indicat ions:Dyslipidemi a, goal LDL below 70 TAKE ONE TABLET BY MOUTH EVERY DAY 90 Tablet 1 11/27/2023 Active Isosorbide Mononitrate ER 60 MG Oral Tablet Extended Release 24 Hour (Imdur)Indicatio ns:Coronary artery disease involving [place] coronary artery of [place] heart without angina pectoris,Aortoco ronary bypass status TAKE ONE TABLET BY MOUTH EVERY MORNING 90 Tablet 1 11/27/2023 Active Pantoprazole Sodium 40 MG Oral Tablet Delayed Release (Protonix)Indica tions:BPH with obstruction/lowe r urinary tract symptoms TAKE ONE TABLET BY MOUTH EVERY MORNING 90 Tablet 1 11/27/2023 Active Additional Information Patient not taking.Reported on 03/02/2024 Lisinopril 2.5 MG Oral Tablet (Prinivil)Indica tions:Atheroscle rosis 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 (HCC) TAKE ONE TABLET BY MOUTH EVERY MORNING 90 Tablet 1 11/27/2023 Active Metoprolol Tartrate 50 MG Oral Tablet (Lopressor)Indic ations:Atheroscl erosis 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 (HCC) TAKE ONE TABLET BY MOUTH TWICE A DAY IN THE MORNING AND BEFORE BEDTIME 180 Tablet 1 11/27/2023 Active Additional Information Patient taking differently: Taking 12.5mg twice a day, Reported on 03/02/2024 metFORMIN HCl 500 MG Oral Tablet (Glucophage)Machelle cations:Impaired fasting glucose TAKE ONE TABLET BY MOUTH TWICE A DAY WITH MORNING AND EVENING MEALS 180 Tablet 1 11/27/2023 Active Tamsulosin HCl 0.4 MG Oral Capsule (Flomax)Indicati ons:BPH with obstruction/lowe r urinary tract symptoms TAKE ONE CAPSULE BY MOUTH EVERY MORNING 90 Capsule 1 11/27/2023 Active Melatonin 5 MG Oral TabletIndication s:Other insomnia TAKE ONE TABLET BY MOUTH EVERY DAY 1 HOUR BEFORE BEDTIME 90 Tablet 3 01/12/2024 01/12/20 25 Active VITAMIN C 1000 MG PO TABS 1 TABLET DAILY 09/01/2013 03/03/20 24 Discontinued documented as of this encounter (statuses as of 03/04/2024) Active Problems Problem Noted Date Diagnosed Date Cerebrovascular disease, arteriosclerotic, 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 Overview: Rt basal ganglia few lacune infarcts Nonrheumatic mitral valve regurgitation 06/17/20 19 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 Prediabetes 08/17/2018 Overview: Per Prediabetes protocol #1 Coronary artery disease invo lving [place] coronary artery of [place] heart without angina pectoris Aortocoronary bypass status Gastroesophageal reflux disease without esophagi tis Dyslipidemia, goal LDL below 70 documented as of this encounter (statuses as of 03/04/2024) Resolved Problems Problem Noted Date Diagnosed Date Resolved Date Atherosclerosis of [place] co ronary artery of [place] heart with angina pectoris 04/08/20182022 Cough 07/06/2010 04/08/2018 Sinus tachycardia 07/06/2010 04/08/2018 documented as of this encounter (statuses as of 03/04/2024) Immunizations Name Administration Dates Next Due COVID-19 mRNA, LNP-s, No Pre serve, 2-Dose Series ([email or web address]) 02/28/2021,01/31/2021 Covid-19, Mrna, Lnp-s, Pf, B ivalent, [...] encounter Miscellaneous Notes * Telephone Encounter - Igor Bernal LPN - 03/04/2024 11:35 AM EDT Sent patient a MyChart to make aware. * Telephone Encounter - Xander Manuel OSA - 03/03/2024 6:33 PM EDT Person calling: Ingrid Relationship to patient: Daughter Number to return call: [phone] Reason for call(brief): Return call Provider Name:Dr. Alcantara Detailed message to office: Returning call for test results from Dr. Alcantara. She asked that he try reaching out to her again tomorrow at 1 pm or 2:45 pm if able, please advise. * Telephone Encounter - Mao Alcantara DO - 03/03/2024 9:44 AM EDT Attempted to reach the patient by phone to go over the results of his CBC and chemistry panel. Results are relatively stable, mild anemia noted, with hemoglobin relatively unchanged compared to a year ago. We will check iron studies, reticulocyte count, B12 and folic acid levels. Repeat stool test for occult blood. Extra lapse will be added to the sample already performed. Attempted to reach the patient by phone, unable to connect with him, left a voicemail. Mao Alcantara DO documented in this encounter Plan of Treatment Upcoming Encounters Date Type Department Care Team (Late st Contact Info) Description 03/09/2024 2:15 PM EDT Imaging Radiology [facility] 1st [facility] [place] [address] [facility] [place] [address] 03/16/2024 2:00 PM EDT Cardiac Studies Cardiac Studies, [address] [place] [address] 04/27/2024 11:00 AM EDT Office Visit Cardiology, [facility] [address] [place] [address] Mao Alcantara, [address] [place] [address] Scheduled Orders Name Type Priority Associated Diagnoses Orde r Schedule FECAL OCCULT BLOOD, EIA Lab Routine Anemia, unspecified type Expected: 03/03/2024 (Approximate), Expires: 03/03/2025 Health Maintenance Due Date Last Done Comments Hepatitis C Screening 1963 COVID-19 Vaccine ( season) 2023 05/15/2022, 02/28/2021, [...] Not on filedocumented as of this encounter Results * (ABNORMAL) IRON SCREEN, INCLUDING TIBC (03/02/2024 10:48 AM EDT) Iron 13(L) 45 - 176 ug/dL 03/03/2024 1:22 PM EDT [facility] Iron Binding Capacity 228(L) 250 - 425 ug/dL 03/03/2024 1:22 PM EDT [facility] Transferrin Saturation Percent 6(L) 15 - 55 % 03/03/2024 1:22 PM EDT [facility] Blood Venous blood specimen / Unknown Venipuncture / Unknown 03/02/2024 10:48 AM EDT 03/02/2024 10:48 AM EDT Mao Alcantara LAB BLOOD ORDERABLES Performing Organization Address [facility] Co de Phone Number [facility]ATORY [facility] [address] [place] [address] * (ABNORMAL) VITAMIN B12 (03/02/2024 10:48 AM EDT) Pathologist [facility] Vitamin B12 >2,000(H) 232 - 1,245 pg/mL 03/03/2024 1:57 PM EDT [facility] Blood Venous blood specimen / Unknown Venipuncture / Unknown 03/02/2024 10:48 AM EDT 03/02/2024 10:48 AM EDT Mao Galarzabury LAB BLOOD ORDERABLES Performing Organization Address [facility] de Phone Number [facility] [address] [place] [address] * (ABNORMAL) RETICULOCYTE PANEL (03/02/2024 10:48 AM EDT) Reticulocyte Percent 0.75(L) 0.80 - 1.90 % 03/03/2024 1:33 PM EDT [facility] Absolute Reticulocyte 30.1(L) 31.3 - 100.1 K/uL 03/03/2024 1:33 PM EDT [facility] Immature Reticuloctye Fraction 10.8 2.5 - 20.6 % 03/03/2024 1:33 PM EDT [facility] Reticulocyte Hemoglobin 29.8 29.7 - 37.4 pg 03/03/2024 1:33 PM EDT [facility] Blood Venous blood specimen / Unknown Venipuncture / Unknown 03/02/2024 10:48 AM EDT 03/02/2024 10:48 AM EDT Mao Alcantara DO LAB BLOOD ORDERABLES Performing Organization Address [facility] Co de Phone Number [facility] [address] [place] [address] * FOLIC ACID (03/02/2024 10:48 AM EDT) Folic Acid >20.0 >4.5 ng/mL 03/03/2024 1:57 PM EDT [facility] Blood Venous blood specimen / Unknown Venipuncture / Unknown 03/02/2024 10:48 AM EDT 03/02/2024 10:48 AM EDT Mao Alcantara DO LAB BLOOD ORDERABLES Performing Organization Address [facility] de Phone Number [facility] [address] [place] [address] * FERRITIN (03/02/2024 10:48 AM EDT) Ferritin 309 30 - 400 ng/mL 03/03/2024 1:57 PM EDT [facility] Blood Venous blood specimen / Unknown Venipuncture / Unknown 03/02/2024 10:48 AM EDT 03/02/2024 10:48 AM EDT Mao Alcantara DO LAB BLOOD ORDERABLES Performing Organization Address [facility] de Phone Number [facility] [address] [place] [address] documented in this encounter Visit Diagnoses Diagnosis Anemia, unspecified type- Primary documented in this encounter Care Teams Registered Radiation Therapist Relationship Specialty Start Date End Date Kristine Augustin MD [address] [facility] [place] [address] PCP - General 06/13/10 documented as of this encounter
--- OUTSIDE RECORDS SUMMARY | 2024-03-18 07:40 | External Medical Summary | Summary of Care ---
Author Name Unknown Organization [facility] Address [address] [place] [address] Phone [phone] Care Team Providers Care Pressure Tester Name Role Phone Kristine Augustin MD Primary Care Provider [phone] Reason for Visit * Reason Onset Date Comments Health Maintenance 03/05/2024 Encounter Details Date Type Department Care Team (Late st Contact Info) Description 03/05/2024 Telephone General Internal Medicine [facility] [address] [facility] [place] [address] Kristine Augustin MD [address] [place] [address] Health Maintenance Allergies Active Allergy Reactions Criticality Noted Date Comments Dust 10/30/2020 Pollen 02/19/2011 Hay Fever documented as of this encounter (statuses as of 03/05/2024) Medications Medication Sig Dispensed Refills Start Date End Date Status [id number] OIL-VITAMIN E PO CAPS one capsule by [...] 24 Hour (Imdur)Indications :Coronary artery disease involving [place] coronary artery of [place] heart without angina pectoris,Aortocoro nary bypass status [...] s of coronary artery bypass graft of [place] heart with angina pectoris (HCC) TAKE ONE TABLET BY MOUTH EVERY MORNING 90 Tablet 1 11/27/2023 Active Metoprolol Tartrate 50 MG Oral Tablet (Lopressor)Indicat ions:Atheroscleros is of coronary artery bypass graft of [place] heart with angina pectoris (HCC) TAKE ONE [...] as of this encounter (statuses as of 03/05/2024) Active Problems Problem Noted Date Diagnosed Date Cerebrovascular disease, arteriosclerotic, 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 Overview: Rt basal ganglia few lacune infarcts Nonrheumatic mitral valve regurgitation 06/17/20 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 Prediabetes 08/17/2018 Overview: Per Prediabetes protocol #1 Coronary artery disease invo lving [place] coronary artery of [place] heart without angina pectoris Aortocoronary bypass status Gastroesophageal reflux disease without esophagi tis Dyslipidemia, goal LDL below 70 documented as of this encounter (statuses as of 03/05/2024) Resolved Problems Problem Noted Date Diagnosed Date Resolved Date Atherosclerosis of [place] co ronary artery of [place] heart with angina pectoris 04/08/20182022 Cough 07/06/2010 04/08/2018 Sinus tachycardia 07/06/2010 04/08/2018 documented as of this encounter (statuses as of 03/05/2024) Immunizations Name Administration Dates Next Due COVID-19 mRNA, LNP-s, No Pre serve, 2-Dose Series ([employer]) 02/28/2021,01/31/2021 Covid-19, Mrna, Lnp-s, Pf, B ivalent, 30 Mcg, IM, 12 yrs and above ([employer]) 05/15/2022 Pneumococcal Conjugate Vacc, 13 Valent (Prevnar) [...] encounter Miscellaneous Notes * Telephone Encounter - Celina Stevens LPN - 03/05/2024 11:53 AM EDT Care Gaps Comprehensive Care Outreach Last Office/Telemedicine Visit: 02/13/2023 (in office), 05/23/2021 (telemedicine) Next Office Visit: Visit date not found Hemoglobin AIC Results: Lab Results Component Value Date/Time HEMOGLOBIN A1C - [facility] 6.1 (H) 02/13/2023 03:05 PM HEMOGLOBIN A1C - [facility] 5.8 (H) 03/22/2022 02:41 PM HEMOGLOBIN A1C - [facility] 5.8 (H) 04/19/2021 09:54 AM HEMOGLOBIN A1C - [facility] 5.9 (H) 07/15/2020 12:13 PM HEMOGLOBIN A1C - [facility] 5.9 (H) 06/08/2019 10:32 AM HEMOGLOBIN A1C - [facility] 6.0 (H) 08/08/2018 09:35 AM BP Readings from Last 1 Encounters: 03/02/24 100/54 Reviewed Health Maintenance below: Health Maintenance Topic Date Due Hepatitis C Screening Never done COVID-19 Vaccine ( season) 2023 DTaP,Tdap,and Td Vaccines (2 - Td or Tdap) 02/03/2024 HbA1c 02/14/2024 Depression Screening 02/14/2024 Care Gap Outreach Action Taken: Pockethernett message sent documented in this encounter Plan of Treatment Upcoming Encounters Date Type Department Care Team (Late st Contact Info) Description 03/09/2024 2:15 PM EDT Imaging Radiology [facility] 1st Floor, [place] [address] [place] [address] 03/16/2024 2:00 PM EDT Cardiac Studies Cardiac Studies, [facility] [address] [place] [address] 04/27/2024 11:00 AM EDT Office Visit Cardiology, [facility] [address] [place] [address] Mao Alcantara, [address] [facility] [place] [address] Health Maintenance Due Date Last Done Comments Hepatitis C Screening 1963 COVID-19 Vaccine ( - 2022- season) 2023 [...] filedocumented as of this encounter Care Teams Pressure Tester Relationship Specialty Start Date End Date Kristine Augustin MD [address] [place] [address] [place], [place] [address] PCP - General 06/13/10 documented as of this encounter
--- OUTSIDE RECORDS SUMMARY | 2024-03-18 07:40 | External Medical Summary | Summary of Care ---
Author Name Unknown Organization [facility] Address [address] [place] [address] Phone [phone] Care Team Providers Care Bridge Club Manager Name Role Phone Kristine Augustin MD Primary Care Provider [phone] Reason for Visit * Reason Onset Date Comments Appointment 03/11/2024 Encounter Details Date Type Department Care Team (Late st Contact Info) Description 03/11/2024 Telephone [facility] [place] [address] [place] [address] Services, Scheduling [address] [place] [address] Appointment Allergies Active Allergy Reactions Criticality Noted Date Comments Dust 10/30/2020 Pollen 02/19/2011 Hay Fever documented as of this encounter (statuses as of 03/11/2024) Medications Medication Sig Dispensed Refills Start Date End Date Status [id number] OIL-VITAMIN E PO CAPS one capsule by [...] 24 Hour (Imdur)Indications :Coronary artery disease involving [place] coronary artery of [place] heart without angina pectoris,Aortocoro nary bypass status [...] s 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 (HCC) TAKE ONE TABLET BY MOUTH EVERY MORNING 90 Tablet 1 11/27/2023 Active Metoprolol Tartrate 50 MG Oral Tablet (Lopressor)Indicat ions:Atheroscleros is 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 (HCC) TAKE ONE [...] protocol #1 Coronary artery disease invo lving [place] coronary artery of [place] heart without angina pectoris Aortocoronary bypass status Gastroesophageal reflux disease without esophagi tis Dyslipidemia, goal LDL below 70 documented as of this encounter (statuses as of 03/11/2024) Resolved Problems Problem Noted Date Diagnosed Date Resolved Date Atherosclerosis of [place] co ronary artery of [place] heart with angina pectoris 04/08/20182022 Cough 07/06/2010 [...] encounter Miscellaneous Notes * Telephone Encounter - Veronica Hoover OSA - 03/11/2024 4:02 PM EDT [facility] Engagement Attempt Engagement: Engagement Attempt 1: Unable to contact Engagement Attempt 2: No data was found Home Information: No data was found Advance Care Planning (ACP): No data was found Has Living Will or Advance Directive: No data was found Anticipated Sub-Program: Focused Care Management (3-9 months) Confirmation of Sub-Program Type (by care meat team member): No data was found Handoff Information: Current care team notified via: No data was found Current telemonitoring equipment: No data was found documented in this encounter Plan of Treatment Upcoming Encounters Date Type Department Care Team (Late st Contact Info) Description 03/16/2024 2:00 PM EDT Cardiac Studies Cardiac Studies, [facility] [email or web address] [place] [address] 04/27/2024 11:00 AM EDT Office Visit Cardiology, [facility] [address] [place] [address] Mao Alcantara, DO [address] [place] [address] Health Maintenance Due Date Last Done Comments [...] filedocumented as of this encounter Care Teams Bridge Club Manager Relationship Specialty Start Date End Date Kristine Augustin MD [address] [place] [address] PCP - General 06/13/10 documented as of this encounter
--- OUTSIDE RECORDS SUMMARY | 2024-03-18 07:40 | External Medical Summary | Summary of Care ---
Author Name Unknown Organization [facility] Address [address] [place] [address] Phone [phone] Care Team Providers Care Computer Systems Security Administrator Name Role Phone Kristine Augustin MD Primary Care Provider [phone] Reason for Visit * Reason Onset Date Comments Test Results 03/03/2024 Encounter Details Date Type Department Care Team (Late st Contact Info) Description 03/03/2024 Telephone Cardiology, [facility] [address] [facility] [place] [address] Mao Alcantara, [address] [place] [address] Test Results Allergies Active Allergy Reactions Criticality Noted Date Comments Dust 10/30/2020 Pollen 02/19/2011 Hay Fever documented as of this encounter (statuses as of 03/04/2024) Medications Medication Sig Dispensed Refills Start Date End Date Status [id number] OIL-VITAMIN E PO CAPS one capsule by [...] 24 Hour (Imdur)Indicatio ns:Coronary artery disease involving [place] coronary artery of [place] heart without angina pectoris,Aortoco ronary bypass status [...] rosis of coronary artery bypass graft of [place] heart with angina pectoris (HCC) TAKE ONE TABLET BY MOUTH EVERY MORNING 90 Tablet 1 11/27/2023 Active Metoprolol Tartrate 50 MG Oral Tablet (Lopressor)Indic ations:Atheroscl erosis of coronary artery bypass graft of [place] heart with angina pectoris (HCC) TAKE ONE [...] protocol #1 Coronary artery disease invo lving [place] coronary artery of [place] heart without angina pectoris Aortocoronary bypass status Gastroesophageal reflux disease without esophagi tis Dyslipidemia, goal LDL below 70 documented as of this encounter (statuses as of 03/04/2024) Resolved Problems Problem Noted Date Diagnosed Date Resolved Date Atherosclerosis of [place] co ronary artery of [place] heart with angina pectoris 04/08/20182022 Cough 07/06/2010 04/08/2018 Sinus tachycardia 07/06/2010 04/08/2018 documented as of this encounter (statuses as of 03/04/2024) Immunizations Name Administration Dates Next Due COVID-19 mRNA, LNP-s, No Pre serve, 2-Dose Series ([employer]) 02/28/2021,01/31/2021 Covid-19, Mrna, Lnp-s, Pf, B ivalent, [...] EDT Sent patient a MyChart to make aware along with addition lab results from other TE encounter. * Telephone Encounter - Xander Manuel OSA - 03/03/2024 6:33 PM EDT Person calling: Ingrid Relationship to patient: Daughter Number to return call: [phone] Reason for call(brief): Return call Provider Name:Dr. [...] Description 03/09/2024 2:15 PM EDT Imaging Radiology [facility] [address] [place] [address] 03/16/2024 2:00 PM EDT Cardiac Studies Cardiac Studies, [address] [place] [address] 04/27/2024 11:00 AM EDT Office Visit Cardiology, [facility] [address] [place] [address] Mao Alcantara, [address] [place] [address] Scheduled Orders Name Type Priority Associated Diagnoses [...] AM EDT 03/02/2024 10:48 AM EDT Mao [place] LAB BLOOD ORDERABLES Performing Organization Address [facility] Co de Phone Number [facility] [place] [address] [place] [address] * (ABNORMAL) VITAMIN B12 (03/02/2024 10:48 AM EDT) Pathologist [facility] Vitamin B12 >2,000(H) 232 - 1,245 pg/mL 03/03/2024 1:57 PM EDT [facility] Blood Venous blood specimen / Unknown Venipuncture / Unknown 03/02/2024 10:48 AM EDT 03/02/2024 10:48 AM EDT Mao Toro [place] LAB BLOOD ORDERABLES Performing Organization Address [facility] de Phone Number [facility] [place] [address] [place] [address] * (ABNORMAL) RETICULOCYTE PANEL (03/02/2024 10:48 AM [...] DO LAB BLOOD ORDERABLES Performing Organization Address City/[facility]/ZIP Co de Phone Number [facility] [address] [place] [address] * FOLIC ACID (03/02/2024 10:48 AM EDT) Folic Acid >20.0 >4.5 ng/mL 03/03/2024 1:57 PM EDT [facility] Blood Venous blood specimen / Unknown Venipuncture / Unknown 03/02/2024 10:48 AM EDT 03/02/2024 10:48 AM EDT Mao Alcantara DO LAB BLOOD ORDERABLES Performing Organization Address [facility] Co de Phone Number [facility] [address] [place] [address] * FERRITIN (03/02/2024 10:48 AM EDT) Ferritin 309 30 - 400 ng/mL 03/03/2024 1:57 PM EDT [facility] Blood Venous blood specimen / Unknown Venipuncture / Unknown 03/02/2024 10:48 AM EDT 03/02/2024 10:48 AM EDT Mao Alcantara DO LAB BLOOD ORDERABLES Performing Organization Address [facility] Co de Phone Number [facility] [address] [place] [address] documented in this encounter Visit Diagnoses Diagnosis Anemia, unspecified type- Primary documented in this encounter Care Teams Computer Systems Security Administrator Relationship Specialty Start Date End Date Kristine Augustin MD [address] [place] [address] PCP - General 06/13/10 documented as of this encounter
--- OUTSIDE RECORDS SUMMARY | 2024-03-18 07:40 | External Medical Summary | Summary of Care ---
Author Name Unknown Organization [facility] Address [address] [place] [address] Phone [phone] Care Team Providers Care Electric Sealing Machine Operator Name Role Phone Kristine Augustin MD Primary Care Provider [phone] Encounter Details Date Type Department Care Team (Latest Contact Info) Description 09/03/2020 2:40 PM EST - 09/03/2020 2:44 PM EST Hospital Encounter Radiology Film File [address] [place] [address] Discharge Disposition: Home - Self Care Allergies Active Allergy Reactions Criticality Noted Date Comments Dust 10/30/2020 Pollen 02/19/2011 Hay Fever documented as of this encounter (statuses as of 03/04/2024) Medications Medication Sig Dispensed Refills Start Date End Date Status [id number] OIL-VITAMIN E PO CAPS one capsule by [...] protocol #1 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 Gastroesophageal reflux disease without esophagi tis Dyslipidemia, goal LDL below 70 documented as of this encounter (statuses as of 03/04/2024) Resolved Problems Problem Noted Date Diagnosed Date Resolved Date Atherosclerosis of tanana co ronary artery of tanana heart with angina pectoris 04/08/20182022 Cough 07/06/2010 04/08/2018 Sinus tachycardia 07/06/2010 04/08/2018 documented as of this encounter (statuses as of 03/04/2024) Immunizations Name Administration Dates Next Due Pneumococcal Conjugate Vacc, 13 Valent (Prevnar) 01/08/2018 Pneumococcal Polysaccharide PPV23 (Pneumovax) 06/13/2010 Seasonal Influenza, PF, 6 M & above, IM , (FluLaval or Fluzone) 08/08/2018 Seasonal Influenza, Split, I IV3, With Preserve, Inj 09/01/2013,05/08/2011,06/13/2010 Seasonal Influenza, Trivalen t, Adjuvanted, 65+ yrs 06/17/2019 TDAP (age 10 and older)(Boostrix) 02/02/2014 Varicella Zoster Vaccine (Adult) 05/04/2011 documented as of this encounter Social History [...] Description 03/09/2024 2:15 PM EDT Imaging Radiology [facility] 1st [facility] [address] [place] [address] 03/16/2024 2:00 PM EDT Cardiac Studies Cardiac Studies, [facility] [address] [address] 04/27/2024 11:00 AM EDT Office Visit Cardiology, [facility] [address] [address] Mao Alcantara, [address] [address] Health Maintenance Due Date Last Done Comments [...] - CT (IMAGES ONLY, NO REPORT) Routine 09/03/2020 2:40 PM EST documented in this encounter Results * RADIOLOGY EXAM - CT (IMAGES ONLY, NO REPORT) (09/03/2020 2:40 PM EST) 09/03/2020 2:36 PM EST Narrative Scheduling, Silent - 03/03/2024 2:16 PM EDT This is an imaging study not interpreted or resulted by a [facility] or [employer] contracted radiologist. Mao Alcantara DO RAD CT documented in this encounter Care Teams Electric Sealing Machine Operator Relationship Specialty Start Date End Date Kristine Augustin MD [address] [facility] [place] [address] PCP - General 06/13/10 documented as of this encounter
--- OUTSIDE RECORDS SUMMARY | 2024-03-18 07:40 | External Medical Summary | Summary of Care ---
Author Name Unknown Organization [facility] Address [address] [place] [address] Phone [phone] Care Team Providers Care Wall Man Name Role Phone Kristine Augustin MD Primary Care Provider [phone] Reason for Visit * Reason Onset Date Comments Test Results 03/03/2024 Encounter Details Date Type Department Care Team (Late st Contact Info) Description 03/03/2024 Telephone Cardiology, [facility] [address] [facility] [place] [address] Mao Alcantara, [address] [place] [address] Test Results Allergies Active Allergy Reactions Criticality Noted Date Comments Dust 10/30/2020 Pollen 02/19/2011 Hay Fever documented as of this encounter (statuses as of 03/04/2024) Medications Medication Sig Dispensed Refills Start Date End Date Status [id number] OIL-VITAMIN E PO CAPS one capsule by [...] 24 Hour (Imdur)Indicatio ns:Coronary artery disease involving [place] coronary artery of [place] heart without angina pectoris,Aortoco ronary bypass status [...] rosis of coronary artery bypass graft of [place]ulk[place] heart with angina pectoris (HCC) TAKE ONE TABLET BY MOUTH EVERY MORNING 90 Tablet 1 11/27/2023 Active Metoprolol Tartrate 50 MG Oral Tablet (Lopressor)Indic ations:Atheroscl erosis of coronary artery bypass graft of [place] heart with angina pectoris (HCC) TAKE ONE [...] 90 Tablet 3 01/12/2024 01/12/20 25 Active Vitron-C 65-125 MG Oral Tablet (Iron-Vitamin C 65-125 mg per tab) Take 1 Tablet by mouth in the morning. 03/03/2024 Active VITAMIN C 1000 MG PO TABS [...] protocol #1 Coronary artery disease invo lving gulk[place] coronary artery of gulkana heart without angina pectoris Aortocoronary bypass status Gastroesophageal reflux disease without esophagi tis Dyslipidemia, goal LDL below 70 documented as of this encounter (statuses as of 03/04/2024) Resolved Problems Problem Noted Date Diagnosed Date Resolved Date Atherosclerosis of [place] co ronary artery of gulkana heart with angina pectoris 04/08/20182022 Cough 07/06/2010 04/08/2018 Sinus tachycardia 07/06/2010 04/08/2018 documented as of this encounter (statuses as of 03/04/2024) Immunizations Name Administration Dates Next Due COVID-19 mRNA, LNP-s, No Pre serve, 2-Dose Series ([employer]) 02/28/2021,01/31/2021 Covid-19, Mrna, Lnp-s, Pf, B ivalent, 30 Mcg, IM, 12 yrs and above ([employer]) 05/15/2022 Pneumococcal Conjugate Vacc, 13 Valent (Prevnar) [...] Encounter - Igor Bernal LPN - 03/04/2024 11:37 AM EDT Sent patient a Rebelle Bridalt message to make aware. * Telephone Encounter - Mao Alcantara DO - 03/03/2024 2:36 PM EDT Cardiology nursing: Please notify patient that his blood work yesterday revealed mild anemia with iron deficiency. I recommend that he discontinue his current [id number] vitamin-C supplement and instead start Vitron-C which is a combination of iron supplementation and vitamin-C. It was often times better tolerated from a constipation side effects standpoint than ferrous sulfate. He can obtain this [id number]-[id number]. One tablet by mouth daily. Mao Alcantara DO documented in this encounter Plan of Treatment Upcoming Encounters Date Type Department Care Team (Late st Contact Info) Description 03/09/2024 2:15 PM EDT Imaging Radiology [facility] 1st [facility] [address] [facility] [place] [address] 03/16/2024 2:00 PM EDT Cardiac Studies Cardiac Studies, [address] [place] [address] 04/27/2024 11:00 AM EDT Office Visit Cardiology, [address] [place] [address] Mao Alcantara DO [address] [place] [address] Health Maintenance Due Date Last Done Comments [...] filedocumented as of this encounter Care Teams Wall Man Relationship Specialty Start Date End Date Kristine Augustin MD [address] [place] [address] PCP - General 06/13/10 documented as of this encounter
--- OUTSIDE RECORDS SUMMARY | 2024-03-18 07:40 | External Medical Summary | Summary of Care ---
Author Name Unknown Organization [facility] Address [address] [place] [address] Phone [phone] Care Team Providers Care Whipped Topping Supervisor Name Role Phone Kristine Augustin MD Primary Care Provider [phone] Reason for Visit * Reason Onset Date Comments Test Results 03/03/2024 Encounter Details Date Type Department Care Team (Late st Contact Info) Description 03/03/2024 Telephone Cardiology, [facility] [address] [facility] [place] [address] Mao Alcantara, [address] [place] [address] Test Results Allergies Active Allergy Reactions Criticality Noted Date Comments Dust 10/30/2020 Pollen 02/19/2011 Hay Fever documented as of this encounter (statuses as of 03/04/2024) Medications Medication Sig Dispensed Refills Start Date End Date Status [id number] OIL-VITAMIN E PO CAPS one capsule by [...] 24 Hour (Imdur)Indicatio ns:Coronary artery disease involving [place] coronary artery of [place] heart without angina pectoris,Aortoco ronary bypass status [...] rosis of coronary artery bypass graft of [place] heart with angina pectoris (HCC) TAKE ONE TABLET BY MOUTH EVERY MORNING 90 Tablet 1 11/27/2023 Active Metoprolol Tartrate 50 MG Oral Tablet (Lopressor)Indic ations:Atheroscl erosis of coronary artery bypass graft of [place] heart with angina pectoris (HCC) TAKE ONE [...] protocol #1 Coronary artery disease invo lving [place] coronary artery of [place] heart without angina pectoris Aortocoronary bypass status Gastroesophageal reflux disease without esophagi tis Dyslipidemia, goal LDL below 70 documented as of this encounter (statuses as of 03/04/2024) Resolved Problems Problem Noted Date Diagnosed Date Resolved Date Atherosclerosis of [place] co ronary artery of [place] heart with angina pectoris 04/08/20182022 Cough 07/06/2010 04/08/2018 Sinus tachycardia 07/06/2010 04/08/2018 documented as of this encounter (statuses as of 03/04/2024) Immunizations Name Administration Dates Next Due COVID-19 mRNA, LNP-s, No Pre serve, 2-Dose Series ([employer]) 02/28/2021,01/31/2021 Covid-19, Mrna, Lnp-s, Pf, B ivalent, [...] encounter Miscellaneous Notes * Telephone Encounter - Mao Alcantara DO - 03/04/2024 1:02 PM EDT I called and spoke to Ingrid. Updates provided. Questions answered to her satisfaction. Mao Alcantara DO * Telephone Encounter - Igor Bernal LPN - 03/04/2024 11:35 AM EDT Sent patient a MyChart to make aware along with addition lab results from other TE encounter. * Telephone Encounter - Xander Manuel OSA - 03/03/2024 6:33 PM EDT Person calling: Ingrid Relationship to patient: Daughter Number to return call: [phone] Reason for call(brief): Return call Provider Name:Dr. [...] Description 03/09/2024 2:15 PM EDT Imaging Radiology [facility] 1st Floor, [place] [address] [facility] [place] [address] 03/16/2024 2:00 PM EDT Cardiac Studies Cardiac Studies, [facility] [address] [facility] [place] [address] 04/27/2024 11:00 AM EDT Office Visit Cardiology, [facility] [address] [facility] [place] [address] Mao Alcantara, [address] [facility] [place] [address] Scheduled Orders Name Type Priority Associated Diagnoses [...] Alcantara LAB BLOOD ORDERABLES Performing Organization Address [facility] de Phone Number LABORATORY [facility] [address] [place] [address] * (ABNORMAL) VITAMIN B12 (03/02/2024 10:48 AM EDT) [facility] Vitamin B12 >2,000(H) 232 - 1,245 pg/mL 03/03/2024 1:57 PM EDT LABORATORY GM Blood Venous blood specimen / Unknown Venipuncture / Unknown 03/02/2024 10:48 AM EDT 03/02/2024 10:48 AM EDT Mao Toro [employer] LAB BLOOD ORDERABLES Performing Organization Address City/[facility] Co de Phone Number LABORATORY [facility] [address] [place] [address] * (ABNORMAL) RETICULOCYTE PANEL (03/02/2024 10:48 AM EDT) Pathologist [facility] Reticulocyte Percent 0.75(L) 0.80 - 1.90 % 03/03/2024 1:33 PM EDT LABORATORY [facility] Absolute Reticulocyte 30.1(L) 31.3 - 100.1 K/uL [...] DO LAB BLOOD ORDERABLES Performing Organization Address City/[facility]/ZIP Co de Phone Number LAB[facility]ATORY [facility] [address] [place] [address] * FOLIC ACID (03/02/2024 10:48 AM EDT) Folic Acid >20.0 >4.5 ng/mL 03/03/2024 1:57 PM EDT LAB[facility]ATORY [facility] Blood Venous blood specimen / Unknown Venipuncture / Unknown 03/02/2024 10:48 AM EDT 03/02/2024 10:48 AM EDT Mao Alcantara Col[employer] LAB BLOOD ORDERABLES Performing Organization Address [facility] Co de Phone Number LAB[facility]ATORY [facility] [address] [place] [address] * FERRITIN (03/02/2024 10:48 AM EDT) Ferritin 309 30 - 400 ng/mL 03/03/2024 1:57 PM EDT LAB[facility]ORY [facility] Blood Venous blood specimen / Unknown Venipuncture / Unknown 03/02/2024 10:48 AM EDT 03/02/2024 10:48 AM EDT Mao Galarzabury [employer] LAB BLOOD ORDERABLES Performing Organization Address [facility] Co de Phone Number LAB[facility]ATORY [facility] [address] [place] [address] documented in this encounter Visit Diagnoses Diagnosis Anemia, unspecified type- Primary documented in this encounter Care Teams Whipped Topping Supervisor Relationship Specialty Start Date End Date Kristine Augustin MD [address] [place] [address] PCP - General 06/13/10 documented as of this encounter
--- OUTSIDE RECORDS SUMMARY | 2024-03-18 07:40 | External Medical Summary | Summary of Care ---
Author Name Unknown Organization [facility] Address [address] [place] [address] Phone [phone] Care Team Providers Care Forestry Extension Specialist Name Role Phone Kristine Augustin MD Primary Care Provider [phone] Reason for Visit * Reason Onset Date Comments Health Maintenance 03/05/2024 Encounter Details Date Type Department Care Team (Late st Contact Info) Description 03/05/2024 Telephone General Internal Medicine [facility] [address] [facility] [place] [address] Kristine Augustin MD [address] [place] [address] Health Maintenance Allergies Active Allergy Reactions Criticality Noted Date Comments Dust 10/30/2020 Pollen 02/19/2011 Hay Fever documented as of this encounter (statuses as of 03/10/2024) Medications Medication Sig Dispensed Refills Start Date End Date Status [id number] OIL-VITAMIN E PO CAPS one capsule by [...] 24 Hour (Imdur)Indications :Coronary artery disease involving [place] band coronary artery of [place]irie band heart without angina pectoris,Aortocoro nary bypass status [...] s of coronary artery bypass graft of [place] band heart with angina pectoris (HCC) TAKE ONE TABLET BY MOUTH EVERY MORNING 90 Tablet 1 11/27/2023 Active Metoprolol Tartrate 50 MG Oral Tablet (Lopressor)Indicat ions:Atheroscleros is of coronary artery bypass graft of pra[place] band heart with angina pectoris (HCC) TAKE ONE [...] as of this encounter (statuses as of 03/10/2024) Active Problems Problem Noted Date Diagnosed Date Cerebrovascular disease, arteriosclerotic, 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 Overview: Rt basal ganglia few lacune infarcts Nonrheumatic mitral valve regurgitation 06/17/20 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 Prediabetes 08/17/2018 Overview: Per Prediabetes protocol #1 Coronary artery disease invo lving [place] coronary artery of [place] heart without angina pectoris Aortocoronary bypass status Gastroesophageal reflux disease without esophagi tis Dyslipidemia, goal LDL below 70 documented as of this encounter (statuses as of 03/10/2024) Resolved Problems Problem Noted Date Diagnosed Date Resolved Date Atherosclerosis of pra[place] band co ronary artery of prairie band heart with angina pectoris 04/08/20182022 Cough 07/06/2010 04/08/2018 Sinus tachycardia 07/06/2010 04/08/2018 documented as of this encounter (statuses as of 03/10/2024) Immunizations Name Administration Dates Next Due COVID-19 mRNA, LNP-s, No Pre serve, 2-Dose Series ([employer]) 02/28/2021,01/31/2021 Covid-19, Mrna, Lnp-s, Pf, B ivalent, 30 Mcg, IM, 12 yrs and above ([employer]) 05/15/2022 Pneumococcal Conjugate Vacc, 13 Valent (Prevnar) [...] Screening 02/14/2024 Care Gap Outreach Action Taken: D-ÉG [employer] message sent documented in this encounter Plan of Treatment Upcoming Encounters Date Type Department Care Team (Late st Contact Info) Description 03/16/2024 2:00 PM EDT [facility] [address] [place] [address] 04/27/2024 11:00 AM EDT [facility] [address] [place] [address] Mao Alcantara, [address] [place] [address] Health Maintenance Due Date Last Done Comments Hepatitis C Screening 1963 Adult Wellness Visit 09/15/2021 09/15/2020 COVID-19 Vaccine (4 - 2022-24 season) 2023 [...] filedocumented as of this encounter Care Teams Forestry Extension Specialist Relationship Specialty Start Date End Date Kristine Augustin MD [address] [place] [address], [place] [address] PCP - General 06/13/10 documented as of this encounter
--- OUTSIDE RECORDS SUMMARY | 2024-03-18 07:40 | External Medical Summary | Summary of Care ---
Author Name Unknown Organization [facility] Address [address] [place] [address] Phone [phone] Care Team Providers Care Fish Hatchery Inspector Name Role Phone Kristine Augustin MD Primary Care Provider [phone] Encounter Details Date Type Department Care Team (Latest Contact Info) Description 09/03/2020 2:45 PM EST - 09/03/2020 11:59 PM EST Hospital Encounter Radiology Film File [address] [place] [address] Discharge Disposition: Home - Self Care Allergies Active Allergy Reactions Criticality Noted Date Comments Dust 10/30/2020 Pollen 02/19/2011 Hay Fever documented as of this encounter (statuses as of 03/04/2024) Medications Medication Sig Dispensed Refills Start Date End Date Status [id number] OIL-VITAMIN E PO CAPS one capsule by [...] protocol #1 Coronary artery disease invo lving de[place] coronary artery of deering heart without angina pectoris Aortocoronary bypass status Gastroesophageal reflux disease without esophagi tis Dyslipidemia, goal LDL below 70 documented as of this encounter (statuses as of 03/04/2024) Resolved Problems Problem Noted Date Diagnosed Date Resolved Date Atherosclerosis of deering co ronary artery of deering heart with angina pectoris 04/08/20182022 Cough 07/06/2010 [...] 03/09/2024 2:15 PM EDT Imaging Radiology [facility] [address] [facility] [address] [place] [address] 03/16/2024 2:00 PM EDT Cardiac Studies Cardiac Studies, [facility] [address] [place] [address] 04/27/2024 11:00 AM EDT Office Visit Cardiology, [facility] [address] [address] Mao Alcantara, [address] [place] [address] Health Maintenance Due Date Last Done Comments [...] CT (IMAGES ONLY, NO REPORT) Routine 09/03/2020 2:45 PM EST documented in this encounter Results * RADIOLOGY EXAM - CT (IMAGES ONLY, NO REPORT) (09/03/2020 2:45 PM EST) 09/03/2020 2:36 PM EST Narrative Scheduling, Silent - 03/03/2024 2:17 PM EDT This is an imaging study not interpreted or resulted by a [facility] or [employer] contracted radiologist. Mao Alcantara DO RAD CT documented in this encounter Care Teams Fish Hatchery Inspector Relationship Specialty Start Date End Date Kristine Augustin MD [address] [place] [address] PCP - General 06/13/10 documented as of this encounter
--- OUTSIDE RECORDS SUMMARY | 2024-03-18 07:41 | External Medical Summary ---
Author Name Unknown Address Unknown Organization K01:LABORATORY [facility] - [address] [place] [address] Laboratory Report Ordering Provider Test Date Status MARIA ISABEL BERMUDEZ 03/02/2024 10:48:59 Final Observation Date Value Abnormality Reference (Units ) Status Folic Acid 03/02/2024 10:48:59 >20.0 >4.5 (ng/ mL) Final Performing Location LAB[facility]ATORY [facility] - [address] [place] [address]
--- OUTSIDE RECORDS SUMMARY | 2024-03-18 07:41 | External Medical Summary | Summary of Care ---
Author Name Unknown Organization [facility] Address [address] [place] [address] Phone [phone] Care Team Providers Care Plant Attendant Name Role Phone Kristine Augustin MD Primary Care Provider [phone] Reason for Visit * Reason Onset Date Comments Test Results 03/03/2024 Encounter Details Date Type Department Care Team (Late st Contact Info) Description 03/03/2024 Telephone Cardiology, [facility] [address] [facility] [place] [address] Mao Alcantara, [address] [place] [address] Test Results Allergies Active Allergy Reactions Criticality Noted Date Comments Dust 10/30/2020 Pollen 02/19/2011 Hay Fever documented as of this encounter (statuses as of 03/03/2024) Medications Medication Sig Dispensed Refills Start Date End Date Status [id number] OIL-VITAMIN E PO CAPS one capsule by mouth daily Active 4X PROBIOTIC PO TABS one daily 09/01/2013 Active VITAMIN D3 3000 UNITS PO TABS Take by mouth. Pt taking 5000 units 09/01/2013 Active VITAMIN C 1000 MG PO TABS 1 TABLET DAILY 09/01/2013 Active B COMPLEX 50 PO TABS [...] 24 Hour (Imdur)Indications :Coronary artery disease involving [place] coronary artery of [place] heart without angina pectoris,Aortocoro nary bypass status [...] s of coronary artery bypass graft of [place] heart with angina pectoris (HCC) TAKE ONE TABLET BY MOUTH EVERY MORNING 90 Tablet 1 11/27/2023 Active Metoprolol Tartrate 50 MG Oral Tablet (Lopressor)Indicat ions:Atheroscleros is of coronary artery bypass graft of [place] heart with angina pectoris (HCC) TAKE ONE [...] BEDTIME 90 Tablet 3 01/12/2024 01/11/2025 Active documented as of this encounter (statuses as of 03/03/2024) Active Problems Problem Noted Date Diagnosed Date Cerebrovascular disease, arteriosclerotic, 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 Overview: Rt basal ganglia few lacune infarcts Nonrheumatic mitral valve regurgitation 06/17/20 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 Prediabetes 08/17/2018 Overview: Per Prediabetes protocol #1 Coronary artery disease invo lving [place] coronary artery of [place] heart without angina pectoris Aortocoronary bypass status Gastroesophageal reflux disease without esophagi tis Dyslipidemia, goal LDL below 70 documented as of this encounter (statuses as of 03/03/2024) Resolved Problems Problem Noted Date Diagnosed Date Resolved Date Atherosclerosis of [place] co ronary artery of [place] heart with angina pectoris 04/08/20182022 Cough 07/06/2010 04/08/2018 Sinus tachycardia 07/06/2010 04/08/2018 documented as of this encounter (statuses as of 03/03/2024) Immunizations Name Administration Dates Next Due COVID-19 mRNA, LNP-s, No Pre serve, 2-Dose Series ([employer]) 02/28/2021,01/31/2021 Covid-19, Mrna, Lnp-s, Pf, B ivalent, 30 Mcg, IM, 12 yrs and above (Twonq) 05/15/2022 Pneumococcal Conjugate Vacc, 13 Valent (Prevnar) [...] Description 03/09/2024 2:15 PM EDT [facility] [address] [facility] [place] [address] 03/16/2024 2:00 PM EDT Cardiac Studies Cardiac Studies, [address] [place] [address] 04/27/2024 11:00 AM EDT Office Visit Cardiology, [facility] 132 [facility] [place] [address] Mao Alcantara DO 132 [facility] [place] [address] Scheduled Orders Name Type Priority Associated Diagnoses Orde r Schedule FERRITIN Lab Routine Anemia, unspecified type Expected: 03/03/2024 (Approximate), Expires: 03/03/2025 FOLIC ACID Lab Routine Anemia, unspecified type Expected: 03/03/2024 (Approximate), Expires: 03/03/2025 FECAL OCCULT BLOOD, EIA Lab Routine Anemia, unspecified type Expected: 03/03/2024 (Approximate), Expires: 03/03/2025 RETICULOCYTE PANEL Lab Routine Anemia, unspecified type Expected: 03/03/2024 (Approximate), Expires: 03/03/2025 VITAMIN B12 Lab Routine Anemia, unspecified type Expected: 03/03/2024 (Approximate), Expires: 03/03/2025 IRON SCREEN, INCLUDING TIBC Lab Routine Anemia, unspecified type Expected: 03/03/2024, Expires: 03/03/2025 Health Maintenance Due Date Last Done Comments Hepatitis C Screening 1963 B-12 03/22/2023 03/22/2022, 07/04, 08/08/2018, Additional history exists COVID-19 Vaccine (4 - 2022-24 season) 2023 05/15/2022, 02/28/2021, 01/31/2021 DTaP,Tdap,and Td Vaccines (2 - Td or Tdap) 02/03/2024 02/02/2014 Depression Screening 02/14/2024 02/13/2023 HbA1c 02/14/2024 02/13/2023, 03/04, 04/19/2021, Additional history exists Influenza Vaccine (FLU shot) (#1) 2024 05/15/2022, 04/30/2021, 09/15/2020, Additional history exists Pneumococcal Vaccine: 65+ Years [...] Not on filedocumented as of this encounter Visit Diagnoses Diagnosis Anemia, unspecified type- Primary documented in this encounter Care Teams Plant Attendant Relationship Specialty Start Date End Date Kristine Augustin MD [address] [place] [address] PCP - General 06/13/10 documented as of this encounter
--- OUTSIDE RECORDS SUMMARY | 2024-03-18 07:41 | External Medical Summary | Summary of Care ---
Author Name Unknown Organization [facility] Address [address] [place] [address] Phone [phone] Care Team Providers Care Director Sales Name Role Phone Kristine Augustin MD Primary Care Provider [phone] Reason for Visit * Reason Comments Outpatient Testing Encounter Details Date Type Department Care Team (Late st Contact Info) Description 03/02/2024 10:50 AM EDT Laboratory Laboratory, [facility] [address] [place] [address] [facility] [address] [place] [address] Dyslipidemia, goal LDL below 70; History of ischemic stroke; Tachycardia Allergies Active Allergy Reactions Criticality Noted Date Comments Dust 10/30/2020 Pollen 02/19/2011 Hay Fever documented as of this encounter (statuses as of 03/02/2024) Medications Medication Sig Dispensed Refills Start Date End Date Status [id number] OIL-VITAMIN E PO CAPS one capsule by [...] 24 Hour (Imdur)Indications :Coronary artery disease involving [place] coronary artery of [place] heart without angina pectoris,Aortocoro nary bypass status [...] s of 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) TAKE ONE TABLET BY MOUTH EVERY MORNING 90 Tablet 1 11/27/2023 Active Metoprolol Tartrate 50 MG Oral Tablet (Lopressor)Indicat ions: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) TAKE ONE [...] as of this encounter (statuses as of 03/02/2024) Active Problems Problem Noted Date Diagnosed Date Cerebrovascular disease, arteriosclerotic, 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 Overview: Rt basal ganglia few lacune infarcts Nonrheumatic mitral valve regurgitation 06/17/20 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 Prediabetes 08/17/2018 Overview: Per Prediabetes protocol #1 Coronary artery disease invo lving [place] coronary artery of [place] heart without angina pectoris Aortocoronary bypass status Gastroesophageal reflux disease without esophagi tis Dyslipidemia, goal LDL below 70 documented as of this encounter (statuses as of 03/02/2024) Resolved Problems Problem Noted Date Diagnosed Date Resolved Date Atherosclerosis of [place] co ronary artery of [place] heart with angina pectoris 04/08/20182022 Cough 07/06/2010 04/08/2018 Sinus tachycardia 07/06/2010 04/08/2018 documented as of this encounter (statuses as of 03/02/2024) Immunizations Name Administration Dates Next Due COVID-19 mRNA, LNP-s, No Pre serve, 2-Dose Series ([employer]) 02/28/2021,01/31/2021 Covid-19, Mrna, Lnp-s, Pf, B ivalent, [...] Description 03/09/2024 2:15 PM EDT Imaging Radiology [facility] 1st Floor, [place] [address] [facility] [place] [address] 03/16/2024 2:00 PM EDT [facility] [place] [address] 04/27/2024 11:00 AM EDT Office Visit Cardiology, [facility] [address] [facility] [place] [address] Mao Alcantara, DO [address] [facility] [place] [id number] Pending Results Name Type Priority Associated Diagnoses Date /Time COMPREHENSIVE METABOLIC PANEL Lab Routine Dyslipidemia, goal LDL below 70 History of ischemic stroke Tachycardia 03/02/2024 10:48 AM EDT Health Maintenance Due Date Last Done Comments Hepatitis C Screening 1963 B-12 03/22/2023 03/22/2022, 07/04, 08/08/2018, Additional history exists COVID-19 Vaccine ( season) 2023 05/15/2022, 02/28/2021, [...] Procedure Name Priority Date/Time Associated Diagnosis Comments CBC Routine 03/02/2024 10:48 AM EDT Dyslipidemia, goal LDL below 70 History of ischemic stroke Tachycardia documented in this encounter Results * (ABNORMAL) CBC (03/02/2024 10:48 AM EDT) WBC 10.28 4.00 - 10.80 K/uL 03/02/2024 10:59 AM EDT [facility] RBC 4.00 4.50 - 5.25 M/uL 03/02/2024 10:59 AM EDT [facility] HGB 12.1(L) 14.0 - 16.8 g/dL 03/02/2024 10:59 AM EDT [facility]10 HCT 35.7(L) 40.0 - 48.4 % 03/02/2024 10:59 AM EDT [facility]10 MCV 89.3 82.0 - 99.5 fL 03/02/2024 10:59 AM EDT [facility]10 MCH 30.3 27.0 - 34.0 pg 03/02/2024 10:59 AM EDT [facility]10 MCHC 33.9 32.0 - 36.0 g/dL 03/02/2024 10:59 AM EDT [facility]10 RDW 12.5 11.5 - 15.5 % 03/02/2024 10:59 AM EDT [facility]10 PLT 269 140 - 400 K/uL 03/02/2024 10:59 AM EDT [facility]10 MPV 9.8 6.6 - 11.1 fL 03/02/2024 10:59 AM EDT [facility]10 Blood Venous blood specimen / Unknown Venipuncture / Unknown 03/02/2024 10:48 AM EDT 03/02/2024 10:48 AM EDT Mao Alcantara DO LAB BLOOD ORDERABLES [facility] [place] [address] documented in this encounter Visit Diagnoses Diagnosis Dyslipidemia, goal LDL below 70 Other and unspecified hyperlipidemia History of ischemic stroke Tachycardia Tachycardia, unspecified documented in this encounter Care Teams Director Sales Relationship Specialty Start Date End Date Kristine Augustin MD [address] [facility] [place] [address] PCP - General 06/13/10 documented as of this encounter
--- OUTSIDE RECORDS SUMMARY | 2024-03-18 07:41 | External Medical Summary | Summary of Care ---
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 [phone] [place] [address] * EKG (03/02/2024 9:21 AM EDT) 03/02/2024 9:21 AM EDT Narrative Procedure Note Rafael Henson DO - 03/02/2024 9:21 AM EDT REASON FOR STUDY: afib symptoms;afib symptoms CONCLUSIONS: Sinus rhythm with 1st degree AV block Nonspecific T wave abnormality Abnormal ECG When compared with ECG of 13-Aug-2010 02:20, ID interval has increased Nonspecific T wave abnormality has replaced inverted T waves in [place] Ventricular Rate: 85 Atrial Rate: 85 ID Interval: 246 QRS Duration: 84 QT/QTc: 348/414 ms P-R-T [place]: 75 : 64 : 36 degrees Mao Alcantara DO EKG Performing Organization Address [facility] Co de Phone Number [facility] documented in this encounter Visit Diagnoses Diagnosis History of ischemic stroke- Primary Coronary artery disease involving [place] coronary artery of [place] heart without angina pectoris Dyslipidemia, goal LDL below 70 Other and unspecified hyperlipidemia Tachycardia Tachycardia, unspecified Premature atrial contractions Supraventricular premature beats Rheumatic heart disease Rheumatic heart disease, unspecified Murmur Undiagnosed cardiac murmurs Atherosclerosis of both carotid arteries Occlusion and stenosis of carotid artery without mention of cerebral infarction documented in this encounter Care Teams Adult Remedial Education Instructor Relationship Specialty Start Date End Date Kimberli Augustin MD [address] [facility] [place] [address] PCP - General 06/13/10 documented as of this encounter"
--- OUTSIDE RECORDS SUMMARY | 2024-03-18 07:41 | External Medical Summary ---
Author Name Unknown Address Unknown Organization K01:LABORATORY C - [address] [place] [address] Laboratory Report Ordering Provider Test Date Status MARIA ISABEL BERMUDEZ 03/02/2024 10:48:59 Final Observation Date Value Abnormality Reference (Units ) Status Vitamin B12 03/02/2024 10:48:59 >2000 Above high normal 232-1245 (pg/mL) Final Performing Location [facility] - [address] [place] [address]
--- OUTSIDE RECORDS SUMMARY | 2024-03-18 07:41 | External Medical Summary ---
Author Name Unknown Address Unknown Organization K0G:LABORATORY [facility] 57-10 - [address] [place] [address] Laboratory Report Ordering Provider Test Date Status MARIA ISABEL BERMUDEZ 03/02/2024 10:48:59 Final Observation Date Value Abnormality Reference (Units ) Status WBC, Total 03/02/2024 10:48:59 10.28 4.00-10.8 0 (K/uL) Final RBC 03/02/2024 10:48:59 4.00 4.50-5.25 (M/uL) Final Hemoglobin 03/02/2024 10:48:59 12.1 Below low normal 14 .0-16.8 (g/dL) Final HCT 03/02/2024 10:48:59 35.7 Below low normal 40. 0-48.4 (%) Final MCV 03/02/2024 10:48:59 89.3 82.0-99.5 (fL) Final MCH 03/02/2024 10:48:59 30.3 27.0-34.0 (pg) Final MCHC 03/02/2024 10:48:59 33.9 32.0-36.0 (g/dL) Final RDW 03/02/2024 10:48:59 12.5 11.5-15.5 (%) Final Platelets 03/02/2024 10:48:59 269 140-400 (K /uL) Final MPV 03/02/2024 10:48:59 9.8 6.6-11.1 ( fL) Final Performing Location LABORATORY [facility] RE[facility] 57-1 0 - [address] [place] [address]
--- OUTSIDE RECORDS SUMMARY | 2024-03-18 07:41 | External Medical Summary | Summary of Care ---
Author Name Unknown Organization [facility] Address [address] [place] [address] Phone [phone] Care Team Providers Care Long Goods Drier Name Role Phone Kimberli Augustin MD Primary Care Provider [phone] Reason for Visit * Reason Comments Medication Refill Encounter Details Date Type Department Care Team (Late st Contact Info) Description 11/26/2023 Refill General Internal Medicine [facility] [address] [facility] [place] [address] Kmiberli Augustin MD [address] [place] [address] Dyslipidemia, goal LDL below 70; Coronary artery disease involving ruby coronary artery of ruby heart without angina pectoris; Aortocoronary bypass status; BPH with obstruction/lower urinary tract symptoms; 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 Pt taking 5000 units 0 09/01/2013 Active VITAMIN C 1000 MG PO TABS 1 TABLET DAILY 0 09/01/2013 Active B COMPLEX 50 PO TABS one daily 0 09/01/2013 Active GARLIC PO TABS one daily 0 09/01/2013 Active CO Q 10 100 MG PO CAPS 600 mg daily 0 09/01/2013 Active [id number] E 250-535-37-30 PO CAPS epa/dha 300/200 twice daily 0 09/01/2013 Active TURMERIC CURCUMIN PO CAPS 750 mg daily 0 09/01/2013 Active NATURAL SUPPLEMENT enzogenol pine bark 0 09/01/2013 Active Multiple Vitamins-Minerals (MULTIVITAMIN MEN) TABS Take 1 Tab by mouth. 0 01/06/2018 Active Aspirin 81 MG Oral Tablet Delayed ReleaseIndication s:Aortocoronary bypass status Take 1 Tablet by mouth in the morning. 0 01/08/2018 Active Linoleic Acid LIQD Take 1 Dose by mouth daily. 0 Active Zinc Sulfate 220 (50 Zn) MG Oral Capsule 1 Capsule. 0 09/26/2020 Active Magnesium Oxide 400 MG Oral Tablet 1 Tablet. 0 09/26/2020 Active Sennosides 8.6 MG Oral Tablet (Senokot) 2 Tablets. 0 10/13/2020 Active Melatonin 5 MG Oral TabletIndications :Other insomnia TAKE ONE TABLET BY MOUTH EVERY DAY 1 HOUR BEFORE BEDTIME 90 Tablet 3 12/05/2022 4 Active Gabapentin 100 MG Oral Capsule (Neurontin)Indica tions:Chronic left-sided low back pain with left-sided sciatica Take 2 Capsules by mouth at bedtime. 180 Capsule 3 06/19/2023 Active Atorvastatin Calcium 40 MG Oral Tablet (Lipitor)Indicati ons:Dyslipidemia, goal LDL below 70 TAKE ONE TABLET BY MOUTH EVERY MORNING 90 Tablet 1 11/27/2023 Active Isosorbide Mononitrate ER 60 MG Oral Tablet Extended Release 24 Hour (Imdur)Indication s:Coronary artery disease involving ruby coronary artery of ruby heart without angina pectoris,Aortocor onary bypass status TAKE ONE TABLET BY MOUTH EVERY MORNING 90 Tablet 1 11/27/2023 Active Pantoprazole Sodium 40 MG Oral Tablet Delayed Release (Protonix)Indicat ions:BPH with obstruction/lower urinary tract symptoms TAKE ONE TABLET BY MOUTH EVERY MORNING 90 Tablet 1 11/27/2023 Active Lisinopril 2.5 MG Oral Tablet (Prinivil)Indicat ions:Atherosclero sis of 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) TAKE ONE TABLET BY MOUTH EVERY MORNING 90 Tablet 1 11/27/2023 Active Metoprolol Tartrate 50 MG Oral Tablet (Lopressor)Indica tions:Atheroscler osis of 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) TAKE ONE TABLET BY MOUTH TWICE A DAY IN THE MORNING AND BEFORE BEDTIME 180 Tablet 1 11/27/2023 Active metFORMIN HCl 500 MG Oral Tablet (Glucophage)Indic ations:Impaired fasting glucose TAKE ONE TABLET BY MOUTH TWICE A DAY WITH MORNING AND EVENING MEALS 180 Tablet 1 11/27/2023 Active Tamsulosin HCl 0.4 MG Oral Capsule (Flomax)Indicatio ns:BPH with obstruction/lower urinary tract symptoms TAKE ONE CAPSULE BY MOUTH EVERY MORNING 90 Capsule 1 11/27/2023 Active Isosorbide Mononitrate ER 60 MG Oral Tablet Extended Release 24 Hour (Imdur)Indication s:Coronary artery disease involving ruby coronary artery of ruby heart without angina pectoris,Aortocor onary bypass status TAKE ONE TABLET BY MOUTH EVERY MORNING 90 Tablet 3 12/05/2022 4 Discontinue d(Refill) Lisinopril 2.5 MG Oral Tablet (Prinivil)Indicat ions:Atherosclero sis of 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) TAKE ONE TABLET BY MOUTH EVERY MORNING 90 Tablet 3 12/05/2022 4 Discontinue d(Refill) Metoprolol Tartrate 50 MG Oral Tablet (Lopressor)Indica tions:Atheroscler osis of 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) TAKE ONE TABLET BY MOUTH TWICE A DAY IN THE MORNING AND BEFORE BEDTIME 180 Tablet 3 12/05/2022 4 Discontinue d(Refill) metFORMIN HCl 500 MG Oral Tablet (Glucophage)Indic ations:Impaired fasting glucose TAKE ONE TABLET BY MOUTH TWICE A DAY WITH MORNING AND EVENING MEALS 180 Tablet 3 12/05/2022 4 Discontinue d(Refill) Atorvastatin Calcium 40 MG Oral Tablet (Lipitor)Indicati ons:Dyslipidemia, goal LDL below 70 TAKE ONE TABLET BY MOUTH EVERY MORNING 90 Tablet 3 12/05/2022 4 Discontinue d(Refill) Pantoprazole Sodium 40 MG Oral Tablet Delayed Release (Protonix)Indicat ions:BPH with obstruction/lower urinary tract symptoms TAKE ONE TABLET BY MOUTH EVERY MORNING 90 Tablet 3 12/05/2022 4 Discontinue d(Refill) Tamsulosin HCl 0.4 MG Oral Capsule (Flomax)Indicatio ns:BPH with obstruction/lower urinary tract symptoms TAKE ONE CAPSULE BY MOUTH EVERY MORNING 90 Capsule 3 12/05/2022 4 Discontinue d(Refill) documented as of this encounter (statuses as of 11/27/2023) Active Problems Problem Noted Date Diagnosed Date Cerebrovascular disease, arteriosclerotic, 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 Overview: Rt basal ganglia few lacune infarcts Nonrheumatic mitral valve regurgitation 06/17/20 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 Prediabetes 08/17/2018 Overview: Per Prediabetes protocol #1 Coronary artery disease invo lving ruby coronary artery of ruby heart without angina pectoris Aortocoronary bypass status Gastroesophageal reflux disease without esophagi tis Dyslipidemia, goal LDL below 70 documented as of this encounter (statuses as of 11/27/2023) Resolved Problems Problem Noted Date Diagnosed Date Resolved Date Atherosclerosis of ruby co ronary artery of ruby heart with angina pectoris 04/08/20182022 Cough 07/06/2010 04/08/2018 Sinus tachycardia 07/06/2010 04/08/2018 documented as of this encounter (statuses as of 11/27/2023) Immunizations Name Administration Dates Next Due COVID-19 mRNA, LNP-s, No Pre serve, 2-Dose Series ([facility]) 02/28/2021,01/31/2021 Covid-19, Mrna, Lnp-s, Pf, B ivalent, [...] money to get more. Never true 02/13/2023 Sex and Gender Information Value Date Recorded Sex Assigned at Male 04/11/2021 8:35 PM EDT Gender Identity Male 04/11/2021 8:35 PM EDT Sexual Orientation Straight 04/11/2021 8: 35 PM EDT Job Start Date Occupation Industry Not on file Not on file Not on file documented as of this encounter Miscellaneous Notes * Telephone Encounter - Foster Botello, [facility] - 11/27/2023 7:49 AM EDTSigned Prescriptions: Disp Refills Atorvastatin Calcium 40 MG Oral Tablet (Li*90 Tab*1 Sig: TAKE ONE TABLET BY MOUTH EVERY MORNING Authorizing Provider: KIMBERLI AUGUSTIN Ordering User: FOSTER MEJIA Isosorbide Mononitrate ER 60 MG Oral Table*90 Tab*1 Sig: TAKE ONE TABLET BY MOUTH EVERY MORNING Authorizing Provider: KIMBERLI AUGUSTIN Ordering User: FOSTER MEJIA antoprazole Sodium 40 MG Oral Tablet Whitney*90 Tab*1 Sig: TAKE ONE TABLET BY MOUTH EVERY MORNING Authorizing Provider: KIMBERLI AUGUSTIN Ordering User: FOSTER MEJIA Lisinopril 2.5 MG Oral Tablet (Prinivil) 90 Tab*1 Sig: TAKE ONE TABLET BY MOUTH EVERY MORNING Authorizing Provider: KIMBERLI AUGUSTIN Ordering User: FOSTER MEJIA Metoprolol Tartrate 50 MG Oral Tablet (Lop*180 Ta*1 Sig: Karis SHARPE ONE TABLET BY MOUTH TWICE A DAY IN THE MORNING AND BEFORE BEDTIME Authorizing Provider: KIMBERLI AUGUSTIN Ordering User: FOSTER MEJIA metFORMIN HCl 500 MG Oral Tablet (Glucopha*180 Ta*1 Sig: TAKE ONE TABLET BY MOUTH TWICE A DAY WITH MORNING AND EVENING MEALS Authorizing Provider: KIMBERLI AUGUSTIN Ordering User: FOSTER MEJIA Tamsulosin HCl 0.4 MG Oral Capsule (Flomax)90 Ca p*1 Sig: TAKE ONE CAPSULE BY MOUTH EVERY MORNING Authorizing Provider: KIMBERLI AUGUSTIN Ordering User: FOSTER MEJIA * Telephone Encounter - 11/26/2023 12:14 AM EDTPending Prescriptions: Disp Refills Atorvastatin Calcium 40 MG Oral Tablet (Li*90 Tab*3 Sig: TAKE ONE TABLET BY MOUTH EVERY MORNING Isosorbide Mononitrate ER 60 MG Oral Table*90 Tab*3 Sig: TAKE ONE TABLET BY MOUTH EVERY MORNING Pantoprazole Sodium 40 MG Oral Tablet Whitney*90 Tab*3 Sig: TAKE ONE TABLET BY MOUTH EVERY MORNING Lisinopril 2.5 MG Oral Tablet (Prinivil) 90 Tab*3 Sig: TAKE ONE TABLET BY MOUTH EVERY MORNING Metoprolol Tartrate 50 MG Oral Tablet (Lop*180 Ta*3 Sig: TAKE ONE TABLET BY MOUTH TWICE A DAY IN THE MORNING AND BEFORE BEDTIME * Telephone Encounter - 11/26/2023 12:14 AM EDTPending Prescriptions: Disp Refills Atorvastatin Calcium 40 MG Oral Tablet (Li*90 Tab*3 Sig: TAKE ONE TABLET BY MOUTH EVERY MORNING Isosorbide Mononitrate ER 60 MG Oral Table*90 Tab*3 Sig: TAKE ONE TABLET BY MOUTH EVERY MORNING Pantoprazole Sodium 40 MG Oral Tablet Whitney*90 Tab*3 Sig: TAKE ONE TABLET BY MOUTH EVERY MORNING Lisinopril 2.5 MG Oral Tablet (Prinivil) 90 Tab*3 Sig: TAKE ONE TABLET BY MOUTH EVERY MORNING Metoprolol Tartrate 50 MG Oral Tablet (Lop*180 Ta*3 Sig: TAKE ONE TABLET BY MOUTH TWICE A DAY IN THE MORNING AND BEFORE BEDTIME metFORMIN HCl 500 MG Oral Tablet (Glucopha*180 Ta*3 Sig: TAKE ONE TABLET BY MOUTH TWICE A DAY WITH MORNING AND EVENING MEALS < BR> * Telephone Encounter - 11/26/2023 12:14 AM EDTPending Prescriptions: Disp Refills Atorvastatin Calcium 40 MG Oral Tablet (Li*90 Tab*3 Sig: TAKE ONE TABLET BY MOUTH EVERY MORNING Isosorbide Mononitrate ER 60 MG Oral Table*90 Tab*3 Sig: TAKE ONE TABLET BY MOUTH EVERY MORNING Pantoprazole Sodium 40 MG Oral Tablet Whitney*90 Tab*3 Sig: TAKE ONE TABLET BY MOUTH EVERY MORNING Lisinopril 2.5 MG Oral Tablet (Prinivil) 90 Tab*3 Sig: TAKE ONE TABLET BY MOUTH EVERY MORNING Metoprolol Tartrate 50 MG Oral Tablet (Lop*180 Ta*3 Sig: TAKE ONE TABLET BY MOUTH TWICE A DAY IN THE MORNING AND BEFORE BEDTIME metFORMIN HCl 500 MG Oral Tablet (Glucopha*180 Ta*3 Sig: TAKE ONE TABLET BY MOUTH TWICE A DAY WITH MORNING AND EVENING MEALS Tamsulosin HCl 0.4 MG Oral Capsule (Flomax)90 Cap*3 Sig: TAKE ONE CAPSULE BY MOUTH EVERY MORNING * Telephone Encounter - 11/26/2023 12:14 AM EDTPending Prescriptions: Disp Refills Atorvastatin Calcium 40 MG Oral Tablet (Li*90 Tab*3 Sig: TAKE ONE TABLET BY MOUTH EVERY MORNING Isosorbide Mononitrate ER 60 MG Oral Table*90 Tab*3 Sig: TAKE ONE TABLET BY MOUTH EVERY MORNING * Telephone Encounter - 11/26/2023 12:14 AM EDTPending Prescriptions: Disp Refills Atorvastatin Calcium 40 MG Oral Tablet (Li*90 Tab*3 Sig: TAKE ONE TABLET BY MOUTH EVERY MORNING Isosorbide Mononitrate ER 60 MG Oral Table*90 Tab*3 Sig: TAKE ONE TABLET BY MOUTH EVERY MORNING Pantoprazole Sodium 40 MG Oral Tablet Whitney*90 Tab*3 Sig: TAKE ONE TABLET BY MOUTH EVERY MORNING * Telephone Encounter - 11/26/2023 12:14 AM EDTPending Prescriptions: Disp Refills Atorvastatin Calcium 40 MG Oral Tablet (Li*90 Tab*3 Sig: TAKE ONE TABLET BY MOUTH EVERY MORNING Isosorbide Mononitrate ER 60 MG Oral Table*90 Tab*3 Sig: TAKE ONE TABLET BY MOUTH EVERY MORNING Pantoprazole Sodium 40 MG Oral Tablet Whitney*90 Tab*3 Sig: TAKE ONE TABLET BY MOUTH EVERY MORNING Lisinopril 2.5 MG Oral Tablet (Prinivil) 90 Tab*3 Sig: TAKE ONE TABLET BY MOUTH EVERY MORNING documented in this encounter Plan of Treatment Upcoming Encounters Date Type Department Care Team (Late st Contact Info) Description 12/15/2023 2:20 PM EDT Office Visit General Internal Medicine [facility] [address] [address] Kimberli Augustin MD [address] [place] [address] Health Maintenance Due Date Last Done Comments Hepatitis C Screening 1963 B-12 03/22/2023 03/22/2022, 07/04, 08/08/2018, Additional history exists COVID-19 Vaccine ( season) 2023 05/15/2022, 02/28/2021, 01/31/2021 DTaP,Tdap,and Td Vaccines (2 - Td or Tdap) 02/03/2024 02/02/2014 Depression Screening 02/14/2024 02/13/2023 HbA1c 02/14/2024 02/13/2023, 03/04, 04/19/2021, Additional history exists Influenza Vaccine (FLU shot) (Season Ended) 2024 05/15/2022, 04/30/2021, 09/15/2020, Additional history exists Pneumococcal Vaccine: 65+ Years Completed 01/08/2018, 06/13/2010 Zoster Vaccines Completed 04/19/2021, 09/04, 05/04/2011 GARDASIL-HPV IMMUNIZATION SERIES Aged Out No longer eligible based on patient's age to complete this topic Hepatitis B Aged Out No longer eligi ble based on patient's age to complete this topic MENINGOCOCCAL (MENACTRA/MENVEO) Aged Out No longer eligible based on patient's age to complete this topic documented as of this encounter Medical Devices Not on filedocumented as of this encounter Visit Diagnoses Diagnosis Dyslipidemia, goal LDL below 70 Other and unspecified hyperlipidemia Coronary artery disease involving ruby coronary artery of ruby heart without angina pectoris Aortocoronary bypass status Postsurgical aortocoronary bypass 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
--- OUTSIDE RECORDS SUMMARY | 2024-03-18 07:41 | External Medical Summary ---
Author Name Unknown Address Unknown Organization K01:LABORATORY [facility] - [facility] [address] [facility] [address] Laboratory Report Ordering Provider Test Date Status MARIA ISABEL BERMUDEZ 03/02/2024 10:48:59 Final Observation Date Value Abnormality Reference (Units ) Status Retic, % (auto) 03/02/2024 10:48:59 0.75 Below low normal 0.80-1.90 (%) Final Reticulocytes, Absolute 03/02/2024 10:48:59 30.1 Below low normal 31.3-100.1 (K/uL) Final Reticulocyte fraction, immature 03/02/2024 10:48:59 10.8 2.5-20.6 (%) Final Reticulocyte HGB 03/02/2024 10:48:59 29.8 29.7-37.4 (pg) Final Performing Location LABORATORY [facility] - [address] [place] [address]
--- OUTSIDE RECORDS SUMMARY | 2024-03-18 07:41 | External Medical Summary | Summary of Care ---
Author Name Unknown Organization [facility] Address [address] [place] [address] Phone [phone] Care Team Providers Care Cloth Checker Name Role Phone Kristine Augustin MD Primary Care Provider [phone] Reason for Visit * Reason Onset Date Comments Information 03/01/2024 Encounter Details Date Type Department Care Team (Late st Contact Info) Description 03/01/2024 Telephone Cardiology, [facility] [address] [facility] [place] [address] Mao Alcantara, [address] [facility] [place] [address] Information Allergies Active Allergy Reactions Criticality Noted Date Comments Dust 10/30/2020 Pollen 02/19/2011 Hay Fever documented as of this encounter (statuses as of 03/01/2024) Medications Medication Sig Dispensed Refills Start Date End Date Status [id number] OIL-VITAMIN E PO CAPS one capsule by [...] PO CAPS 600 mg daily 09/01/2013 Active [id number]-THPHYSER [id number] E 057-240-94-30 PO CAPS epa/dha 300/200 twice daily 09/01/2013 Active TURMERIC CURCUMIN PO CAPS [...] 8.6 MG Oral Tablet (Senokot) 2 Tablets. 10/13/2020 Active Gabapentin 100 MG Oral Capsule [...] 24 Hour (Imdur)Indications :Coronary artery disease involving [place] coronary artery of [place] heart without angina pectoris,Aortocoro nary bypass status TAKE ONE TABLET BY MOUTH EVERY MORNING 90 Tablet 1 11/27/2023 Active Pantoprazole Sodium 40 MG Oral Tablet Delayed Release (Protonix)Indicati ons:BPH with obstruction/lower urinary tract symptoms TAKE ONE TABLET BY MOUTH EVERY MORNING 90 Tablet 1 11/27/2023 Active Lisinopril 2.5 MG Oral Tablet (Prinivil)Indicati ons:Atherosclerosi s of coronary artery bypass graft of [place] heart with angina pectoris (HCC) TAKE ONE TABLET BY MOUTH EVERY MORNING 90 Tablet 1 11/27/2023 Active Metoprolol Tartrate 50 MG Oral Tablet (Lopressor)Indicat ions:Atheroscleros is of coronary artery bypass graft of [place] heart with angina pectoris (HCC) TAKE ONE TABLET BY MOUTH TWICE A DAY IN THE MORNING AND BEFORE BEDTIME 180 Tablet 1 11/27/2023 Active metFORMIN HCl 500 MG Oral Tablet (Glucophage)Indica [...] as of this encounter (statuses as of 03/01/2024) Active Problems Problem Noted Date Diagnosed Date Cerebrovascular disease, arteriosclerotic, 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 Overview: Rt basal ganglia few lacune infarcts Nonrheumatic mitral valve regurgitation 06/17/20 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 Prediabetes 08/17/2018 Overview: Per Prediabetes protocol #1 Coronary artery disease invo lving [place] coronary artery of [place] heart without angina pectoris Aortocoronary bypass status Gastroesophageal reflux disease without esophagi tis Dyslipidemia, goal LDL below 70 documented as of this encounter (statuses as of 03/01/2024) Resolved Problems Problem Noted Date Diagnosed Date Resolved Date Atherosclerosis of [place] co ronary artery of [place] heart with angina pectoris 04/08/20182022 Cough 07/06/2010 04/08/2018 Sinus tachycardia 07/06/2010 04/08/2018 documented as of this encounter (statuses as of 03/01/2024) Immunizations Name Administration Dates Next Due COVID-19 mRNA, LNP-s, No Pre serve, 2-Dose Series ([facility]) 02/28/2021,01/31/2021 Covid-19, Mrna, Lnp-s, Pf, B ivalent, [...] Telephone Encounter - Igor Bernal LPN - 03/01/2024 4:43 PM EDT Called patient and left a message to let him know he was added to Dr. Alcantara's schedule for tomorrow. * Telephone Encounter - Jeanette Hargrove LPN - 03/01/2024 2:45 PM EDT Pt calling in at 2:49 PM to report symptoms of "afib" since yesterday. Heart rates in 100-110 with some SOB & cough Taking metoprolol tartrate 12.5mg BID and aspirin. Pt is requesting to be seen today by Dr. Alcantara. Advised pt that we do not have any openings remaining so late in the day. And, that a message will be sent to await return call. documented in this encounter Plan of Treatment Upcoming Encounters Date Type Department Care Team (Late st Contact Info) Description 03/02/2024 9:00 AM EDT Office Visit Cardiology, [facility] [address] [place] [address] Mao Alcantara, [address] [place] [address] Health Maintenance Due Date Last Done Comments [...] filedocumented as of this encounter Care Teams Cloth Checker Relationship Specialty Start Date End Date Kristine Augustin MD [address] [facility] [place] [address] PCP - General 06/13/10 documented as of this encounter
--- OUTSIDE RECORDS SUMMARY | 2024-03-18 07:41 | External Medical Summary ---
Author Name Unknown Address Unknown Organization K01:LABORATORY C - [address] [place] [address] Laboratory Report Ordering Provider Test Date Status MARIA ISABEL BERMUDEZ 03/02/2024 10:48:59 Final Observation Date Value Abnormality Reference (Units ) Status Ferritin 03/02/2024 10:48:59 309 30-400 (ng /mL) Final Performing Location LAB[facility]ATORY [facility] - [address] [place] [address]
--- OUTSIDE RECORDS SUMMARY | 2024-03-18 07:41 | External Medical Summary | Summary of Care ---
Author Name Unknown Organization [facility] Address [address] [place] [address] Phone [phone] Care Team Providers Care Groutman Name Role Phone Kimberli Augustin MD Primary Care Provider [phone] Reason for Visit * Reason Comments Medication Refill Encounter Details Date Type Department Care Team (Late st Contact Info) Description 01/09/2024 Refill General Internal Medicine [facility] [place] [address] [facility] [place] [address] Paulo Collier PA-C [address] [place] [address] [place] [address] Other insomnia Allergies Active Allergy Reactions Criticality Noted Date Comments Dust 10/30/2020 Pollen 02/19/2011 Hay Fever documented as of this encounter (statuses as of 01/12/2024) Medications Medication Sig Dispensed Refills Start Date End Date Status [id number] OIL-VITAMIN E PO CAPS one capsule by [...] PO CAPS 600 mg daily 09/01/2013 Active [id number] PO CAPS epa/dha 300/200 twice daily 09/01/2013 [...] 24 Hour (Imdur)Indication s:Coronary artery disease involving [place] coronary artery of [place] heart without angina pectoris,Aortocor onary bypass status TAKE ONE TABLET BY MOUTH EVERY MORNING 90 Tablet 1 11/27/2023 Active Pantoprazole Sodium 40 MG Oral Tablet Delayed Release (Protonix)Indicat ions:BPH with obstruction/lower urinary tract symptoms TAKE ONE TABLET BY MOUTH EVERY MORNING 90 Tablet 1 11/27/2023 Active Lisinopril 2.5 MG Oral Tablet (Prinivil)Indicat ions: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) TAKE ONE TABLET BY MOUTH EVERY MORNING 90 Tablet 1 11/27/2023 Active Metoprolol Tartrate 50 MG Oral Tablet (Lopressor)Indica tions: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) TAKE ONE [...] BEDTIME 90 Tablet 3 01/12/2024 5 Active Melatonin 5 MG Oral TabletIndications :Other insomnia TAKE ONE TABLET BY MOUTH EVERY DAY 1 HOUR BEFORE BEDTIME 90 Tablet 3 12/05/2022 4 Discontinue d(Refill) documented as of this encounter (statuses as of 01/12/2024) Active Problems Problem Noted Date Diagnosed Date Cerebrovascular disease, arteriosclerotic, 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 Overview: Rt basal ganglia few lacune infarcts Nonrheumatic mitral valve regurgitation 06/17/20 19 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 Prediabetes 08/17/2018 Overview: Per Prediabetes protocol #1 Coronary artery disease invo lving [place] coronary artery of [place] heart without angina pectoris Aortocoronary bypass status Gastroesophageal reflux disease without esophagi tis Dyslipidemia, goal LDL below 70 documented as of this encounter (statuses as of 01/12/2024) Resolved Problems Problem Noted Date Diagnosed Date Resolved Date Atherosclerosis of [place] co ronary artery of [place] heart with angina pectoris 04/08/20182022 Cough 07/06/2010 04/08/2018 Sinus tachycardia 07/06/2010 04/08/2018 documented as of this encounter (statuses as of 01/12/2024) Immunizations Name Administration Dates Next Due COVID-19 mRNA, LNP-s, No Pre serve, 2-Dose Series ([employer]) 02/28/2021,01/31/2021 Covid-19, Mrna, Lnp-s, Pf, B ivalent, [...] encounter Miscellaneous Notes * Telephone Encounter - Kimberli Augustin MD - 01/12/2024 8:49 AM EDTSigned Prescriptions: Disp Refills Melatonin 5 MG Oral Tablet 90 Tab*3 Sig: TAKE ONE TABLET BY MOUTH EVERY DAY 1 HOUR BEFORE BEDTIME Authorizing Provider: KIMBERLI AUGUSTIN * Telephone Encounter - Ricky Mccallum, MED ASSIST - 01/12/2024 8:38 AM EDTPending Prescriptions: Disp Refills Melatonin 5 MG Oral Tablet 90 Tab*3 Sig: TAKE ONE TABLET BY MOUTH EVERY DAY 1 HOUR BEFORE BEDTIME * Telephone Encounter - Ricky Mccallum MED ASSIST - 01/12/2024 8:38 AM EDT Did you pend patient's preferred pharmacy and medication before forwarding?yes Pharmacy: [facility] Pending Prescriptions: Disp Refills Melatonin 5 MG Oral Tablet 90 Tab*3 Sig: TAKE ONE TABLET BY MOUTH EVERY DAY 1 HOUR BEFORE BEDTIME Last Visit: 02/13/2023 (in office), 05/23/2021 (telemedicine) Next Visit: Visit date not found If no future appointments scheduled, and last appointment is greater than a year ago, please schedule patient for a follow-up appointment Last date the medication was ordered: 12/05/2022 Is this request for a controlled substance?No Urine Drug Screen:No results found for this or any previous visit. Patient Phone Numbers mobile [phone] Labs: Lab Results Component Value Date/Time CREAT 1.0 02/13/2023 03:05 PM CREAT 1.2 07/15/2020 12:13 PM POTASSIUM 4.6 02/13/2023 03:05 PM POTASSIUM 4.5 07/15/2020 12:13 PM TSH 2.38 02/21/2016 10:51 AM LDLCALC 45 02/13/2023 03:05 PM LDLCALC 41 07/15/2020 12:13 PM LDLDIRECT NOT APPLICABLE 07/15/2020 12:13 PM ALT 25 02/13/2023 03:05 PM ALT 29 07/15/2020 12:13 PM HGBA1C 6.1 (H) 02/13/2023 03:05 PM HGBA1C 5.9 (H) 07/15/2020 12:13 PM * Telephone Encounter - Yanelis Garcia - 01/09/2024 6:02 AM EDTPending Prescriptions: Disp Refills Melatonin 5 MG Oral Tablet 90 Tab*3 Sig: TAKE ONE TABLET BY MOUTH EVERY DAY 1 HOUR BEFORE BEDTIME documented in this encounter Plan of Treatment Health Maintenance Due Date Last Done Comments [...] as of this encounter Visit Diagnoses Diagnosis Other insomnia documented in this encounter Care Teams Groutman Relationship Specialty Start Date End Date Kimberli Augustin MD [address] [place] [address] PCP - General 06/13/10 documented as of this encounter
--- OUTSIDE RECORDS SUMMARY | 2024-03-18 07:41 | External Medical Summary | Summary of Care ---
Author Name Unknown Organization [facility] Address [address] [place] [address] Phone [phone] Care Team Providers Care Him Director Name Role Phone Kristine Augustin MD Primary Care Provider [phone] Reason for Visit * Reason Onset Date Comments Follow Up 03/03/2024 Encounter Details Date Type Department Care Team (Late st Contact Info) Description 03/03/2024 Telephone Cardiology, [facility] [address] [facility] [place] [address] Mao Alcantara, [address] [facility] [place] [address] Follow Up Allergies Active Allergy Reactions Criticality Noted Date Comments Dust 10/30/2020 Pollen 02/19/2011 Hay Fever documented as of this encounter (statuses as of 03/03/2024) Medications Medication Sig Dispensed Refills Start Date End Date Status [id number] OIL-VITAMIN E PO CAPS one capsule by [...] mRNA, LNP-s, No Pre serve, 2-Dose Series ([employer]) 02/28/2021,01/31/2021 Covid-19, Mrna, Lnp-s, Pf, B ivalent, 30 Mcg, IM, 12 yrs and above ([employer]) 05/15/2022 Pneumococcal Conjugate Vacc, 13 Valent (Prevnar) [...] Encounter - Mao Alcantara DO - 03/03/2024 8:37 AM EDT Attempted to reach pt's daughter again by phone. Unable to connect with her. Will try again soon. Mao Alcantara DO documented in this encounter Plan of Treatment Upcoming Encounters Date Type Department Care Team (Late st Contact Info) Description 03/09/2024 2:15 PM EDT Imaging Radiology [facility] 1st Floor, [address] [facility] [place] [address] 03/16/2024 2:00 PM EDT Cardiac Studies Cardiac Studies, [facility] [address] [place] [address] 04/27/2024 11:00 AM EDT Office Visit Cardiology, [facility] [address] [place] [address] Mao Alcantara DO [address] [place] [address] Health Maintenance Due Date Last Done Comments [...] filedocumented as of this encounter Care Teams Him Director Relationship Specialty Start Date End Date Kristine Augustin MD [address] [facility] [place] [address] PCP - General 06/13/10 documented as of this encounter
--- OUTSIDE RECORDS SUMMARY | 2024-03-18 07:41 | External Medical Summary | Summary of Care ---
Author Name Unknown Organization [facility] Address [address] [place] [address] Phone [phone] Care Team Providers Care Presales Senior Specialist Name Role Phone Kristine Augustin MD Primary Care Provider [phone] Reason for Visit * Reason Onset Date Comments Test Results 03/03/2024 Encounter Details Date Type Department Care Team (Late st Contact Info) Description 03/03/2024 Telephone Cardiology, [facility] [address] [facility] [place] [address] Mao Alcantara, [address] [facility] [place] [address] Test Results Allergies Active Allergy Reactions Criticality Noted Date Comments Dust 10/30/2020 Pollen 02/19/2011 Hay Fever documented as of this encounter (statuses as of 03/03/2024) Medications Medication Sig Dispensed Refills Start Date End Date Status [id number] OIL-VITAMIN E PO CAPS one capsule by [...] 24 Hour (Imdur)Indicatio ns:Coronary artery disease involving [place] coronary artery of [place] heart without angina pectoris,Aortoco ronary bypass status [...] rosis of coronary artery bypass graft of [place] heart with angina pectoris (HCC) TAKE ONE TABLET BY MOUTH EVERY MORNING 90 Tablet 1 11/27/2023 Active Metoprolol Tartrate 50 MG Oral Tablet (Lopressor)Indic ations:Atheroscl erosis of coronary artery bypass graft of [place] heart with angina pectoris (HCC) TAKE ONE [...] protocol #1 Coronary artery disease invo lving [place] coronary artery of [place] heart without angina pectoris Aortocoronary bypass status Gastroesophageal reflux disease without esophagi tis Dyslipidemia, goal LDL below 70 documented as of this encounter (statuses as of 03/03/2024) Resolved Problems Problem Noted Date Diagnosed Date Resolved Date Atherosclerosis of [place] co ronary artery of [place] heart with angina pectoris 04/08/20182022 Cough 07/06/2010 04/08/2018 Sinus tachycardia 07/06/2010 04/08/2018 documented as of this encounter (statuses as of 03/03/2024) Immunizations Name Administration Dates Next Due COVID-19 mRNA, LNP-s, No Pre serve, 2-Dose Series ([employer]) 02/28/2021,01/31/2021 Covid-19, Mrna, Lnp-s, Pf, B ivalent, [...] encounter Miscellaneous Notes * Telephone Encounter - Xander Manuel OSA - 03/03/2024 6:33 PM EDT Person calling: Ingrid Relationship to patient: Daughter Number to return call: [phone] Reason for call(brief): Return call Provider Name:Dr. [...] Description 03/09/2024 2:15 PM EDT Imaging Radiology [facility] 1st Floor, [address] [place] [address] 03/16/2024 2:00 PM EDT Cardiac Studies Cardiac Studies, [facility] [address] [facility] [place] [address] 04/27/2024 11:00 AM EDT Office Visit Cardiology, [address] [place] [address] Mao Alcantara DO [address] [facility] [place] [address] Scheduled Orders Name Type Priority Associated Diagnoses Orde r Schedule FECAL OCCULT BLOOD, EIA Lab Routine Anemia, unspecified type Expected: 03/03/2024 (Approximate), Expires: 03/03/2025 Health Maintenance Due Date Last Done Comments Hepatitis C Screening 1963 COVID-19 Vaccine (4 - 2022- season) 2023 05/15/2022, 02/28/2021, 01/31/2021 [...] DO LAB BLOOD ORDERABLES Performing Organization Address City/[facility]/ZIP Co de Phone Number LAB[facility]ATORY [facility] [address] [place] [address] * (ABNORMAL) VITAMIN B12 (03/02/2024 10:48 AM EDT) Pathologist [facility] Vitamin B12 >2,000(H) 232 - 1,245 pg/mL 03/03/2024 1:57 PM EDT LABORATORY [facility] Blood Venous blood specimen / Unknown Venipuncture / Unknown 03/02/2024 10:48 AM EDT 03/02/2024 10:48 AM EDT Mao Alcantara DO LAB BLOOD ORDERABLES Performing Organization Address [facility] Co de Phone Number LABORATORY [facility] [address] [place] [address] * (ABNORMAL) RETICULOCYTE PANEL (03/02/2024 10:48 AM EDT) Pathologist [facility] Reticulocyte Percent 0.75(L) 0.80 - 1.90 % 03/03/2024 1:33 PM EDT LABORATORY C Absolute Reticulocyte 30.1(L) 31.3 - 100.1 K/uL 03/03/2024 1:33 PM EDT LABORATORY C Immature Reticuloctye Fraction 10.8 2.5 - 20.6 % 03/03/2024 1:33 PM EDT LABORATORY [facility] Reticulocyte Hemoglobin 29.8 29.7 - 37.4 pg 03/03/2024 1:33 PM EDT LABORATORY [facility] Blood Venous blood specimen / Unknown Venipuncture / Unknown 03/02/2024 10:48 AM EDT 03/02/2024 10:48 AM EDT Mao Alcantara DO LAB BLOOD ORDERABLES Performing Organization Address City/[facility]/ZIP Co de Phone Number [facility]ORY [facility] [address] [place] [address] * FOLIC ACID (03/02/2024 10:48 AM EDT) Folic Acid >20.0 >4.5 ng/mL 03/03/2024 1:57 PM EDT LABORATORY [facility] Blood Venous blood specimen / Unknown Venipuncture / Unknown 03/02/2024 10:48 AM EDT 03/02/2024 10:48 AM EDT Mao Alcantara DO LAB BLOOD ORDERABLES LAB[facility]ORY [facility] [address] [place] [address] * FERRITIN (03/02/2024 10:48 AM EDT) Ferritin 309 30 - 400 ng/mL 03/03/2024 1:57 PM EDT LABORATORY [facility] Blood Venous blood specimen / Unknown Venipuncture / Unknown 03/02/2024 10:48 AM EDT 03/02/2024 10:48 AM EDT Mao Alcantara DO LAB BLOOD ORDERABLES Performing Organization Address City/[facility]/ZIP Co de Phone Number [facility] [address] [place] [address] documented in this encounter Visit Diagnoses Diagnosis Anemia, unspecified type- Primary documented in this encounter Care Teams Presales Senior Specialist Relationship Specialty Start Date End Date Kristine Augustin MD [address] [place] [address] [place] [address] PCP - General 06/13/10 documented as of this encounter
--- OUTSIDE RECORDS SUMMARY | 2024-03-18 07:41 | External Medical Summary ---
Author Name Unknown Address Unknown Organization K01:LABORATORY [facility] - [address] [place] [address] Laboratory Report Ordering Provider Test Date Status LARAMARIA ISABEL 03/02/2024 10:48:59 Final Observation Date Value Abnormality Reference (Units ) Status Iron 03/02/2024 10:48:59 13 Below low normal 45-176 (ug/dL) Final Iron-binding capacity 03/02/2024 10:48:59 228 Below low normal 250-425 (ug/dL) Final Transferrin Sat % 03/02/2024 10:48:59 6 Below low normal 15-55 (%) Final Performing Location LABORATORY [facility] - [address] [place] [address]
[2024-03-18] MEDS: SODIUM CHLORIDE 0.9% 1,000 ML IV SCH ×2 (08:04→15:30)
--- NOTE | 2024-03-18 08:32 | XRay Report ---
XR chest 1V portable CLINICAL HISTORY: weakness COMPARISON STUDY: Chest radiograph February 15, 2023. FINDINGS: There are median sternotomy wires and mediastinal surgical clips. Mild cardiomegaly is unch anged. There is no pneumothorax. Small right pleural effusion is present. This may be loculated. Ther e is asymmetric interstitial thickening within the right lung. In addition, right upper lung airspace opacity is noted, including a 5.4 cm right upper lung density. IMPRESSION: 1. Right upper lung airspace opacity, including a 5.4 cm opacity. This may reflect pneumonia. However , a mass could appear similar. A chest CT is recommended for further evaluation. 2. Asymmetric interstitial thickening within the right lung and a small, likely loculated, right pleu ral effusion which can be assessed on follow-up CT. ACT 112: Positive. There are findings on this exam that require communication between the performing entity and the patient following Patient Test Result Information Act ([place] Act 112) guidelines. Electronically signed by: Micheal Escobar M.D. 03/18/2024 8:30 AM
[2024-03-18 08:37] LABS: Basophils # (auto) 0.03 K/uL (0.00-0.20); Basophils % (auto) 0.2 %; Eosinophils # (auto) 0.19 K/uL (0.00-0.50); Eosinophils % (auto) 1.1 %; Hematocrit (blood only) 33.1 % (42.0-52.0); Hemoglobin 10.9 g/dl (14.0-18.0); Immature Granulocytes # (auto) 0.07 K/uL (0.01-0.20); Immature Granulocytes % (auto) 0.4 %; Lymphocytes # (auto) 0.67 K/uL (1.20-3.40); Lymphocytes % (auto) 3.8 %; Mean Corpuscular Hemoglobin 28.8 pg (25.0-34.0); Mean Corpuscular Hgb Conc 32.9 g/dL (32.0-36.0); Mean Corpuscular Volume 87.6 fL (80.0-100.0); Mean Platelet Volume 9.9 fL (9.4-12.4); Monocytes # (auto) 1.17 K/uL (0.11-0.59); Monocytes % (auto) 6.6 %; Neutrophils # (auto) 15.56 K/uL (1.40-6.50); Neutrophils % (auto) 87.9 %; Platelet Count 453 K/uL (130-400); RDW Coefficient of Variation 12.9 % (11.5-14.5); RDW Standard Deviation 41.3 fL (36.4-46.3); Red Blood Count 3.78 M/uL (4.70-6.10); White Blood Count 17.69 K/ul (4.8-10.8)
[2024-03-18 08:42] LABS: Albumin Globulin Ratio 0.9 (0.9-2); Albumin Level 3.4 gm/dl (3.4-5.0); BUN Creatinine Ratio 35.1 (10-20); Bilirubin,Total 0.6 mg/dl (0.2-1.0); Calcium 10.2 mg/dl (8.6-10.3); Creatinine Clr Calc Pharmacy 54.6 ml/min; Est GFR (African American) 89.6 ml/min; Est GFR (Non-African American) 77.3 ml/min; Globulin 3.7 gm/dl (2.5-4.0); Magnesium 2.2 mg/dl (1.7-2.4); Potassium 3.8 mmol/L (3.5-5.1); Total Protein 7.1 gm/dl (6.0-8.3)
[2024-03-18] MEDS: cefTRIAXone SODIUM 2,000 MG/50 ML BAG IV STA (08:55)
[2024-03-18 08:58] LABS: Thyroid Stimulating Hormone 2.995 uIu/ml (0.300-4.500)
[2024-03-18 09:10] LABS: Influenza A virus by PCR Negative (Neg); Influenza B virus by PCR Negative (Neg); RSV by PCR Negative (Neg); SARS CoV2 RNA(COVID-19) Ceph NEGATIVE (Negative)
[2024-03-18] MEDS: OPTIRAY 320 100ml IV ONE (09:19)
--- NOTE | 2024-03-18 09:40 | History & Physical Report ---
Date of Service March 18, 2024 Assessment & Plan (1) Necrotizing pneumonia: (2) Dysphagia: Plan Nas Lorenzo is a 78y/o M with PMHx significant for dyslipidemia, prediabetes, CAD s/p CABG x 2, history of ischemic stroke in 2020, mitral valve regurgitation, rheumatic heart disease, atherosclerosis of both carotid arteries, history of premature atrial contractions, BPH w/ LUTS, GERD and exercise-induced bronchospasm who presented to the ED for evaluation secondary to issues with swallowing and gradual weight loss over the past few months. He was found to have an extensive consolidation with multiple small foci of cavitation in his right upper and right middle lobes on admitting chest CT - these findings are suggestive of necrotizing pneumonia. Necrotizing Pneumonia WBC 17K, Biofire negative. UA notable for RBCs, but is otherwise negative. CXR showing a right upper lung airspace opacity, including a 5.4 cm opacity. This may reflect pneumonia. However, a mass could appear similar. A chest CT is recommended for further evaluation. Asymmetric interstitial thickening within the right lung and a small, likely loculated, right pleural effusion which can be assessed on follow-up CT. CT chest revealed an extensive right upper lobe and right middle lobe consolidation with multiple small foci of cavitation. These findings suggest necrotizing pneumonia. Scattered infectious alveolar opacities also seen within the right lower lobe. Prominent mediastinal and left supraclavicular lymph nodes as visualized. These may be reactive and can be assessed on follow-up CT. A follow-up chest CT in 2 months to ensure resolution is recommended. He is on RA and saturating well in the mid to upper 90s SpO2. Pulmonary toilet w/ incentive spirometry and flutter valve ordered. Patient was started on IV Rocephin in ED. Also received 1L NSS in the ED. Will transition him to IV Vancomycin + Zosyn and continue IVF w/ NSS x 2 bags for now. Sputum culture, MRSA swab and blood culture are all pending - follow results. Pu lmonology consult pending as well. Dysphagia Patient has lost approximately 40-50 pounds over the past year or so. Mentions he used to weight 165 pounds and now is weighing around 125 at home. Patient mentions that he cannot swallow well at all. Patient can only tolerate Boost drinks and strict fluid intake (Gatorade, water). He does drink ~1 cup of coffee/day. Reports that he cannot swallow solid foods - believes his esophagus may be the problem. He does mention a lack of appetite. Patient has been able to swallow his medications at home, but with significant difficulty. GI consult pending, will keep patient NPO at midnight pending need for EGD tomorrow. Dietitian and DATA CONVERSION DEVELOPER also consulted. Hypertension Patient did not take any of his antihypertensive meds this morning. Patient reporting some dizziness and lightheadedness over the past week or so. His BP has been persistently low in the ED - initial BP reading 83/46 when meet ing with patient in the ED. BP recycled 92/54 at 10:58 and then again around 11:00, BP improved to ~110/60. 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 Anemia POA Hgb 10.6, Hct 33.1% and plt count 453. OP recent anemia work up shows normal ferritin, B12 and folate. DM Type II: Hold home agents, initiating SSI regimen. BSG checks ACHS, Hgb A1c in AM - follow results. Rheumatic Heart Disease: Patient with longstanding history of murmur and history of rheumatic heart disease having had rheumatic fever as a child per chart review. H/O Ischemic Stroke [2020]: Patient was admitted locally in 2020 with symptoms of ataxic gait in the left hand clumsiness/numbness. An MRI performed at [facility] on 09/25/2020 revealed lacunar infarcts of the right basal ganglia, right burgess radiata. He has ongoing neurologic deficits including mild dysarthria and some mild difficulties with his gait. He can continue with his gabapentin. CAD s/p CABG x 2 & Dyslipidemia Per [facility] documentation discovered during chart review: "Cardiac catheterization at the [facility] at that time revealed a right dominant coronary system with a 50% distal left main stenosis, 90% proximal LAD stenosis that involved the bifurcation with the first diagonal. He went on to have CABG x2 on 06/04/2010 at the [facility] with RODARTE to LAD and a vein graft to the circumflex coronary artery." Per previous [facility] documentation from the patient's visit on 03/02, patient was to wear a 14-day Zio patch monitor given concern of potential atrial fibrillation. However, patient is without an official diagnosis of atrial fibrillation. He is not on any anticoagulants (such as Warfarin or Eliquis) prior to arrival. He can continue his ASA and statin therapy. BPH w/ LUTS: Chronic, stable - continue Flomax. Patient's daughter, Ingrid, can be contacted at the following phone #: [phone]. DVT Prophylaxis: SQ Heparin Code Status: DNR/DNI - As per discussion with the patient in the ED at time of admission. PCP: Kristine Augustin MD Disposition: Admit to PCU/Telemetry Patient seen in collaboration with Dr. Murphy. Please see addendum. I spent a total of 65 minutes coordinating, documenting, and providing care for this patient excluding time spent in the performance of separately billed services. This included personally reviewing all current laboratories and imaging studies, medical reconciliation, outpatient chart review and discussion with specialists. This chart was completed in part utilizing Speech Voice Recognition Software. Grammatical errors, random word insertions, pronoun errors, and incomplete sentences are an occasional consequence of this system due to software limitations, ambient noise, and hardware issues. Any formal questions or concerns about the content, text, or information contained within the body of this dictation should be directly addressed to the provider for clarification. History of Present Illness Chief Complaint: Trouble Swallowing, Weight Loss Primary Care Provider: Kristine Augustin MD Nas Lorenzo is a 78y/o M with PMHx significant for dyslipidemia, prediabetes, CAD s/p CABG x 2, history of ischemic stroke in 2020, mitral valve regurgitation, rheumatic heart disease, atherosclerosis of both carotid arteries, history of premature atrial contractions, BPH w/ LUTS, GERD and exercise-induced bronchospasm who presented to the ED for evaluation secondary to issues with swallowing and gradual weight loss. History obtained from patient and associated chart review. Patient has lost approximately 40-50 pounds over the past year or so. Mentions he used to weight 165 pounds and now is weighing around 125 at home. Reports he has not been "feeling well" for approximately a year and a half. Mentions that he has been experiencing an incessant productive cough for a couple of months as well. He does not recall any fevers. Patient mentions that he cannot swallow well at all. Per ED provider, patient can only tolerate Boost drinks and strict fluid intake (Gatorade, water). Reports that he cannot swallow solid foods - believes his esophagus may be the problem. He does mention a lack of appetite. He has been feeling excessively fatigued lately. Denies any shortness of breath or chest pain. He does have a daughter, Ingrid, who lives locally that visits him from time to time. His daughter works as a chiropractor. The patient states that he is responsible for his own meals. He has not had any vomiting or diarrhea. Per ED provider, patient reported that he feels he can no longer be at home by himself. Patient questioning if he could have "long COVID" given his lethargy. Patient was using a cane or walker to ambulate following his stroke in 2020, but reports that he has not been using either device as of lately. Allergies Allergy/AdvReac Type Severity Reaction Status Date / Time No Known Allergies Allergy Verified 09/22/20 02:36 Home Medications Medication Instructions Recorded Confirmed Type Cortisol Diplomatic Officer Botanical 1 tab PO DAILY 09/03/20 03/18/24 History ascorbic acid (vitamin C) 1,000 mg 1 g PO DAILY 09/03/20 03/18/24 History tablet (Vitamin C) aspirin 81 mg tablet,delayed 81 mg PO DAILY 09/03/20 03/18/24 History release coenzyme Q10 100 mg capsule 600 mg PO DAILY 09/03/20 03/18/24 History (CoQ-10) garlic 2,000 mg PO DAILY 09/03/20 03/18/24 History isosorbide mononitrate 60 mg 60 mg PO DAILYBB 09/03/20 03/18/24 History tablet,extended release 24 hr melatonin 5 mg tablet 5 mg PO HS 09/03/20 03/18/24 History metformin 500 mg tablet 500 mg PO BID 09/03/20 03/18/24 History (Glucophage) nitroglycerin 0.4 mg sublingual 0.4 mg sublingual UD PRN Chest Pain 09/03/20 03/18/24 History tablet (Nitrostat) pantoprazole 40 mg tablet,delayed 40 mg PO UD 09/03/20 03/18/24 History release saw palmetto 80 mg capsule 320 mg PO BID 09/03/20 03/18/24 History tamsulosin 0.4 mg capsule (Flomax) 0.4 mg PO HS 09/03/20 03/18/24 History Dawson Bark Extract 1 tab PO DAILY 09/04/20 03/18/24 History cholecalciferol (vitamin D3) 125 125 mcg PO DAILY 09/04/20 03/18/24 History mcg (5,000 unit) tablet (Vitamin D3) multivitamin 1 tab PO DAILY 09/04/20 03/18/24 History sennosides 8.6 mg tablet (senna) 17.2 mg PO HS 09/04/20 03/18/24 History vitamin B complex 1 tab PO DAILY 09/04/20 03/18/24 History atorvastatin 40 mg tablet 40 mg PO DAILY 09/22/20 03/18/24 History omega 5-rww-mhr-fish oil 1,000 mg 1 cap PO DAILY 09/22/20 03/18/24 History (120 mg-180 mg) capsule (Fish Oil) zinc sulfate 50 mg zinc (220 mg) 220 mg PO DAILY PRN Other 09/22/20 03/18/24 History tablet acetaminophen 325 mg capsule 650 mg PO Q4H PRN Pain 10/24/20 03/18/24 History (Tylenol) lisinopril 2.5 mg tablet 2.5 mg PO DAILY 10/24/20 03/18/24 History metoprolol tartrate 50 mg tablet 12.5 mg PO BID 10/24/20 03/18/24 History (Lopressor) Calcium And Magnesium 1 tab PO DAILY 03/18/24 03/18/24 History gabapentin 100 mg capsule 200 mg PO HS 03/18/24 03/18/24 History (Neurontin) Past Med/Surg History Problem List Dysphagia Necrotizing pneumonia Aortic stenosis Hypercholesterolemia Right-sided lacunar stroke Left hemiparesis Ataxia (Acute) Left arm weakness (Acute) Hypertension Diabetes Cortez's palsy (Acute) Coronary artery disease (Chronic) Murmur Post-operative state Medical History CAD (coronary artery disease) Type 2 diabetes mellitus Pre-operative cardiovascular examination Dyslipidemia Social History Smoking Status: Former smoker Tobacco Type: Pipe Hx Alcohol Use: Yes Alcohol type: beer and wine Hx Substance Use: No Preferred Language: Kiswahili Communication Ability: Effective Beliefs That Will Affect Care: None Current Living Situation: Alone Feels Safe at Home: Yes Assistive Devices: None Review of Systems Review of Systems: At least ten systems reviewed and negative, except as noted in the HPI. Physical Exam Physical Exam: Please refer to Dr. Murphy's addendum for physical examination findings. Results & Data Results & Data Vital Signs (Past 12 Hours) Vital Signs Temp Pulse Resp BP Pulse Ox O2 Del Method 03/18/24 08:14 86 17 97 Room Air 03/18/24 07:41 37.2 C 90 20 103/81 97 Room Air 03/18/24 07:34 92 H Laboratory Results Short CBC 03/18/24 Range/Units 08:01 WBC 17.69 H (4.8-10.8) K/ul Hgb 10.9 L (14.0-18.0) g/dl Hct 33.1 L (42.0-52.0) % Plt Count 453 H (130-400) K/uL BMP 03/18/24 08:01 Sodium 136 Potassium 3.8 Chloride 96 L Carbon Dioxide 32 BUN 33 H Creatinine 0.94 Glucose 113 H Calcium 10.2 Liver Function 03/18/24 Range/Units 08:01 Total Bilirubin 0.6 (0.2-1.0) mg/dl AST 18 (13-39) U/L ALT 14 (7-52) U/L Alkaline Phosphatase 96 (34-104) U/L Albumin 3.4 (3.4-5.0) gm/dl Diagnostic Findings Chest X-Ray 03/18/24 07:34 XR chest 1V portable CLINICAL HISTORY: weakness COMPARISON STUDY: Chest radiograph February 15, 2023. FINDINGS: There are median sternotomy wires and mediastinal surgical clips. Mild cardiomegaly is unchanged. There is no pneumothorax. Small right pleural effusion is present. This may be loculated. There is asymmetric interstitial thickening within the right lung. In addition, right upper lung airspace opacity is noted, including a 5.4 cm right upper lung density. IMPRESSION: 1. Right upper lung airspace opacity, including a 5.4 cm opacity. This may reflect pneumonia. However, a mass could appear similar. A chest CT is recommended for further evaluation. 2. Asymmetric interstitial thickening within the right lung and a small, likely loculated, right pleural effusion which can be assessed on follow-up CT. ACT 112: Positive. There are findings on this exam that require communication between the performing entity and the patient following Patient Test Result Information Act ([place] Act 112) guidelines. Electronically signed by: Micheal Escobar M.D. 03/18/2024 8:[address] 03/18/24 08:45 CT OF THE CHEST WITH IV CONTRAST CLINICAL HISTORY: likely pneumonia on xray COMPARISON STUDY: Chest radiograph February 15, 2023 and March 18, 2024. TECHNIQUE: Following IV administration of 94 mL of Optiray, helical axial images of the chest were obtained. Sagittal and coronal reconstructions were viewed as well as maximal intensity projections on an independent 3-D workstatio n. Automated exposure control was utilized for the study. A dose lowering technique was utilized adhering to the principles of ALARA. CT DOSE: 369.44 mGy.cm FINDINGS: A prominent left supraclavicular lymph node measures 1.5 x 0.9 cm. A prominent subcarinal lymph node measures 1.7 x 1.1 cm. There are median sternotomy wires. Postoperative findings from bypass grafting are noted. There is moderate aortic valvular calcification. The heart is mildly enlarged. There is no pericardial effusion. No pneumothorax or pleural effusion is present. The central airways are patent. There is a small hiatal hernia. Note is made of extensive right upper lobe and right middle lobe consolidation with small foci of cavitation. Areas of decreased attenuation within the lungs are present. There are scattered alveolar opacities within the right lower lobe. Left lung is clear. No suspicious lesions within the bony thorax are present. Visualized portions of the upper abdomen are unremarkable. IMPRESSION: 1. Extensive right upper lobe and right middle lobe consolidation with multiple small foci of cavitation. The findings suggest necrotizing pneumonia. A follow- up chest CT in 2 months to ensure resolution is recommended. 2. Scattered alveolar opacities within the right lower lobe, also infectious. 3. Prominent mediastinal and left supraclavicular lymph nodes. These may be reactive and can be assessed on follow-up CT. ACT 112: Negative or not required by law. Electronically signed by: Micheal Escobar M.D. 03/18/2024 9:57 AM Medications Administered Discontinued Medications Sodium Chloride (Nss) 1,000 mls @ 999 mls/hr IV .Q1H1M SOPHIA Stop: 08/15/24 08:45 Last Infusion: 03/18/24 09:04 Dose: Infused Documented By: Admin: 03/18/24 08:04 Dose: 999 mls/hr Documented By: Ceftriaxone Sodium (Rocephin) 2,000 mg in 50 mls @ 100 mls/hr IV NOW STA Stop: 03/18/24 09:09 Last Admin: 03/18/24 08:55 Dose: 100 mls/hr Documented By: Ioversol (Optiray 320 100ml) 94 ml IV ONCE ONE Stop: 03/18/24 09:19 Last Admin: 03/18/24 09:19 Dose: 94 ml Documented By: JAR Code Status & VTE Plan Code Status DNR/DNI - No Resuscitation Supervising Physician Co-Signing Physician Notes Patient was seen and examined with Lexii ROSALES at bedside. Chart reviewed. Case discussed with Lexii and agree with the documentation above. 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 Vitals stable, no hypoxia or respiratory distress. WBC 17, Lactate 1, RVP negative, MRSA swab pending, sputum culture pending. CT chest with extensive right upper lobe and right middle lobe consolidation with multiple small foci of cavitation suggestive of necrotizing pneumonia and Scattered alveolar opacities within the right lower lobe, also infectious; along with Prominent mediastinal and left supraclavicular lymph nodes. Does not meet SIRS/sepsis criteria but looks chronically ill. States normal BP at home is in 90s to 100s. During our encounter it was in 80s which improved to 90s and 100s. Given fluid bolus in ED and started on ceftriaxone. Will admit to PCU on tele with vanc/zosyn along with maintenance fluids. Consult pulm, GI, dietitian and DATA CONVERSION DEVELOPER. Follow up on sputum and blood culture, MRSA swab and discontinue vanc if MRSA swab negative. He states he is DNR/DNI. Rest as per the note above. On exam- General: Chronically ill looking, lying comfortably in bed, not in distress, on room air HEENT: EOMI, ALYSE, MMM Chest: Clear breath sounds bilaterally, no wheezes or crackles CVS: Regular rate and rhythm, normal heart sounds, murmur + Abdomen: Soft, non tender, not distended, normal bowel sounds Neuro: Awake, alert, oriented, conversing well, non focal Extremities: No cyanosis, clubbing or edema . (2) Dysphagia Dysphagia type: unspecified Qualified Code(s): R13.10 - Dysphagia, unspecified
--- NOTE | 2024-03-18 09:59 | CT Scan Report ---
CT OF THE CHEST WITH IV CONTRAST CLINICAL HISTORY: likely pneumonia on xray COMPARISON STUDY: Chest radiograph February 15, 2023 and March 18, 2024. TECHNIQUE: Following IV administration of 94 mL of Optiray, helical axial images of the chest were o btained. Sagittal and coronal reconstructions were viewed as well as maximal intensity projections o n an independent 3-D workstation. Automated exposure control was utilized for the study. A dose low ering technique was utilized adhering to the principles of ALARA. CT DOSE: 369.44 mGy.cm FINDINGS: A prominent left supraclavicular lymph node measures 1.5 x 0.9 cm. A prominent subcarinal lymph node measures 1.7 x 1.1 cm. There are median sternotomy wires. Postoperative findings from bypa ss grafting are noted. There is moderate aortic valvular calcification. The heart is mildly enlarged. There is no pericardial effusion. No pneumothorax or pleural effusion is present. The central airway s are patent. There is a small hiatal hernia. Note is made of extensive right upper lobe and right mi ddle lobe consolidation with small foci of cavitation. Areas of decreased attenuation within the lung s are present. There are scattered alveolar opacities within the right lower lobe. Left lung is clear . No suspicious lesions within the bony thorax are present. Visualized portions of the upper abdomen are unremarkable. IMPRESSION: 1. Extensive right upper lobe and right middle lobe consolidation with multiple small foci of cavitat ion. The findings suggest necrotizing pneumonia. A follow-up chest CT in 2 months to ensure resolutio n is recommended. 2. Scattered alveolar opacities within the right lower lobe, also infectious. 3. Prominent mediastinal and left supraclavicular lymph nodes. These may be reactive and can be asses sed on follow-up CT. ACT 112: Negative or not required by law. Electronically signed by: Micheal Escobar M.D. 03/18/2024 9:57 AM
[2024-03-18 11:43] LABS: Appearance Urine Cloudy (Clear); Bacteria Urine Automated None Seen (None Seen); Bilirubin Urine Negative (Negative); Blood Urine Negative (Negative); Cast Urine Automated 0-2 /lpf (0-2); Color Urine Yellow; Epithelial Cell Urine Auto 0-2 /hpf (0-2); Glucose Urine UA Negative (Negative); Ketones Urine Negative (Negative); Leukocyte Esterase Urine Negative (Negative); Nitrite Urine Negative (Negative); Protein Urine 1+ (Negative); Specific Gravity Urine > 1.045 (1.000-1.030); Urobilinogen Urine Negative (Negative); WBC Urine Automated 0-5 /hpf (0-5); pH Urine 8.5 (4.5-7.5)
[2024-03-18 11:59] LABS: Adenovirus PCR Not Detected (NotDetected); Bordetella parapertussis PCR Not Detected (NotDetected); Bordetella pertussis PCR Not Detected (NotDetected); Chlamydia pneumoniae PCR Not Detected (NotDetected); Coronavirus 229E PCR Not Detected (NotDetected); Coronavirus CoV-2 (COVID19)PCR Not Detected (NotDetected); Coronavirus HKU1 PCR Not Detected (NotDetected); Coronavirus NL63 PCR Not Detected (NotDetected); Coronavirus OC43PCR Not Detected (NotDetected); Human Metapneumovirus PCR Not Detected (NotDetected); Influenza A PCR Not Detected (NotDetected); Influenza B PCR Not Detected (NotDetected); Mycoplasma pneumoniae PCR Not Detected (NotDetected); Parainfluenza Virus 1 PCR Not Detected (NotDetected); Parainfluenza Virus 2 PCR Not Detected (NotDetected); Parainfluenza Virus 3 PCR Not Detected (NotDetected); Parainfluenza Virus 4 PCR Not Detected (NotDetected); Respiratory Syncytial VirusPCR Not Detected (NotDetected); Rhinovirus/Enterovirus PCR Not Detected (NotDetected)
--- NOTE | 2024-03-18 12:17 | Electrocardiogram Report ---
Test Reason : Blood Pressure : */* mmHG Vent. Rate : 90 BPM Atrial Rate : 90 BPM P-R Int : 214 ms QRS Dur : 84 ms QT Int : 444 ms P-R-T Axes : 66 52 44 degrees QTcB Int : 543 ms Sinus rhythm with 1st degree A-V block Nonspecific ST and T wave abnormality Abnormal ECG When compared with ECG of 15-Feb-2023 18:44, Vent. rate has increased by 36 bpm Nonspecific T wave abnormality, worse in Inferior leads Nonspecific T wave abnormality now evident in Anterolateral leads QT has lengthened Confirmed by Abram Kellogg ([id number]) on 03/18/2024 12:17:47 PM Referred By: Confirmed By: Abram Kellogg
--- NOTE | 2024-03-18 12:45 | Pulmonary Consultation ---
Date of Consultation March 18, 2024 Assessment & Plan (1) Necrotizing pneumonia: (2) Difficulty swallowing: Dysphagia type: unspecified Qualified Code(s): R13.10 - Dysphagia, unspecified (3) Murmur: (4) Weakness: (5) Weight loss: Plan IMPRESSION: 78-year-old male with a history of swallowing difficulty who presents with productive cough and findings of RIGHT mid/upper lobe infiltrative process concerning for necrotizing pneumonia. RECOMMENDATIONS: 1. Necrotizing pneumonia - CT findings with dense RIGHT upper lobe and RIGHT middle lobe consolidative process with areas of cavitation. There does appear to be aeration of these areas, however. Patient is continuing to cough up moderate amount of foul appearing sputum. At this point, would transition antibiotics to Unasyn to cover for anaerobes as the patient does have a history of difficulty with swallowing and is certainly at risk for ongoing aspiration. Swallow evaluation ordered. Agree with GI assessment for possible stricture or other contribution of his swallowing difficulties. Agree with sputum cultures. Will add AFB as well. Additionally, will encourage aggressive pulmonary toileting including flutter valve, incentive spirometry, and the addition of hypertonic saline to hopefully aid in mobilizing his secretions. Will review possible chest physical therapy as well pending his tolerance of the above. Additionally, while this is likely independent sales representative of a primary process from his aspiration, will evaluate with echocardiogram to assess possible vegetative lesion on a patient with known rheumatic heart disease. Otherwise, the patient is stable on room air alone at this time and will likely require lengthening antibiotic course with follow-up in the next 2 to 3 months in the pulmonary clinic for follow-up imaging to assess for resolution. 2. Swallowing difficulty - In the setting of prior CVA. Will obtain swallow evaluation and appreciate the recommendations. 3. Generalized failure to thrive - Likely secondary to #1 and 2. Appreciate other service input. 4. Murmur - Noted in the setting of rheumatic heart disease. Will obtain echocardiogram to evaluate for possible vegetative contribution for a possible secondary cause of necrotic pneumonia. Thank you for allowing us to participate in the care of this pleasant patient. Pulmonary medicine will continue to follow. Supervising Physician Co-Signing Physician Notes EMR reviewed. Images independently reviewed. Discussed with DEANDRE. Agree with assessment plan as noted. Likely aspiration. Agree with antibiotics. May benefit from infectious disease consultation. Defining goals of therapy in this patient highly appropriate. 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 He states that he has had a cough and generalized fatigue over the last few weeks. The cough became more productive today which prompted his visit to the emergency department. On evaluation, the patient was noted to have a RIGHT mid upper infiltrate. CT concerning for findings of necrotizing pneumonia process. Pulmonary medicine consulted for further evaluation and management. Upon evaluation in room B2, the patient is awake, alert, and oriented. He states that he has been generally weak and frail which has stemmed from his initial CVA, but over the last few weeks to months, he has had increasing fatigue and has had a cough for the last few weeks. He states that last night he was up coughing every 10 minutes and bringing up a significant amount of brownish-green expectorant. He has had no fevers. No complaints of chest pain, palpitations, or significant dyspnea. No hemoptysis. The patient denies any neptali episodes of aspiration. He does report that he sleeps on his right side. Patient has had an issue with swallowing over the last few months as well and is to the point that he can only swallow liquids. He is adamant that he does not aspirate with swallowing as he drinks in small amounts and does so in an active effort to prevent this from occurring. He has had a significant weight loss of 40 to 50 pounds over the last year. He is a lifelong non-smoker. He was raised in a household where his mother smoked. He reports a history of self diagnosed exercise-induced asthma. 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 Patient reports that he has had some dental caps that had fallen off, but reports no overt dental infections that he is aware. He does have a history of rheumatic heart disease which was diagnosed as a child. He has a residual murmur that has not been problematic to this point. Allergies Allergy/AdvReac Type Severity Reaction Status Date / Time No Known Allergies Allergy Verified 09/22/20 02:36 Home Medications Medication Instructions Recorded Confirmed Type Cortisol Repairer Wood Furniture Botanical 1 tab PO DAILY 09/03/20 03/18/24 History ascorbic acid (vitamin C) 1,000 mg 1 g PO DAILY 09/03/20 03/18/24 History tablet (Vitamin C) aspirin 81 mg tablet,delayed 81 mg PO DAILY 09/03/20 03/18/24 History release coenzyme Q10 100 mg capsule 600 mg PO DAILY 09/03/20 03/18/24 History (CoQ-10) garlic 2,000 mg PO DAILY 09/03/20 03/18/24 History isosorbide mononitrate 60 mg 60 mg PO DAILYBB 09/03/20 03/18/24 History tablet,extended release 24 hr melatonin 5 mg tablet 5 mg PO HS 09/03/20 03/18/24 History metformin 500 mg tablet 500 mg PO BID 09/03/20 03/18/24 History (Glucophage) nitroglycerin 0.4 mg sublingual 0.4 mg sublingual UD PRN Chest Pain 09/03/20 03/18/24 History tablet (Nitrostat) pantoprazole 40 mg tablet,delayed 40 mg PO UD 09/03/20 03/18/24 History release saw palmetto 80 mg capsule 320 mg PO BID 09/03/20 03/18/24 History tamsulosin 0.4 mg capsule (Flomax) 0.4 mg PO HS 09/03/20 03/18/24 History [place] Bark Extract 1 tab PO DAILY 09/04/20 03/18/24 History cholecalciferol (vitamin D3) 125 125 mcg PO DAILY 09/04/20 03/18/24 History mcg (5,000 unit) tablet (Vitamin D3) multivitamin 1 tab PO DAILY 09/04/20 03/18/24 History sennosides 8.6 mg tablet (senna) 17.2 mg PO HS 09/04/20 03/18/24 History vitamin B complex 1 tab PO DAILY 09/04/20 03/18/24 History atorvastatin 40 mg tablet 40 mg PO DAILY 09/22/20 03/18/24 History omega 2-unb-cqk-fish oil 1,000 mg 1 cap PO DAILY 09/22/20 03/18/24 History (120 mg-180 mg) capsule (Fish Oil) zinc sulfate 50 mg zinc (220 mg) 220 mg PO DAILY PRN Other 09/22/20 03/18/24 History tablet acetaminophen 325 mg capsule 650 mg PO Q4H PRN Pain 10/24/20 03/18/24 History (Tylenol) lisinopril 2.5 mg tablet 2.5 mg PO DAILY 10/24/20 03/18/24 History metoprolol tartrate 50 mg tablet 12.5 mg PO BID 10/24/20 03/18/24 History (Lopressor) Calcium And Magnesium 1 tab PO DAILY 03/18/24 03/18/24 History gabapentin 100 mg capsule 200 mg PO HS 03/18/24 03/18/24 History (Neurontin) Patient History Medical History CAD (coronary artery disease) Type 2 diabetes mellitus Pre-operative cardiovascular examination Dyslipidemia Social History Smoking Status: Former smoker Tobacco Type: Pipe Hx Alcohol Use: Yes Alcohol type: beer and wine Hx Substance Use: No Preferred Language: Estonian Communication Ability: Effective Beliefs That Will Affect Care: None Current Living Situation: Alone Feels Safe at Home: Yes Assistive Devices: None Review of Systems Review of Systems: A complete 10 point review of systems was reviewed with the patient with pertinent positives and negatives as per history of present illness. All else were negative. Physical Exam Physical Exam: VITAL SIGNS Vital signs and nursing notes were reviewed. GENERAL 78-year-old male appearing his stated age who is in no acute distress. Weak and frail appearing. SKIN Without rashes or lesions. NOSE Midline and without cyanosis. MOUTH/OROPHARYNX Without perioral cyanosis. Buccal mucosa pink and dry. Poor dentition without appreciable abscess. NECK Neck with FROM. LUNGS Chest wall evaluation demonstrates normal chest wall A:P diameter. Auscultation reveals coarse breath sounds to the RIGHT without wheezes, rales, or rhonchi appreciated. CARDIAC RRR with S1/S2. No murmur, rubs, or gallops appreciated. ABDOMEN Abdominal inspection demonstrates a scaphoid abdomen=. BS normoactive all four quadrants. No tenderness, palpable masses, or ascites noted. EXTREMITIES Nail clubbing not present. No peripheral cyanosis. No pretibial edema present. +3/5 radial palpated throughout. PSYCH A&Ox3 and cooperates fully with examiner. Pt is very pleasant and interacts well with examiner. Results & Data Results & Data Vital Signs (Past 12 Hours) Vital Signs Temp Pulse Resp BP Pulse Ox O2 Del Method 03/18/24 12:00 81 17 103/53 L 96 03/18/24 11:35 84 03/18/24 11:00 87 21 108/60 96 03/18/24 08:14 86 17 97 Room Air 03/18/24 07:41 37.2 C 90 20 103/81 97 Room Air 03/18/24 07:34 92 H PG Care Time/CCT Total # of Minutes Spent Total Time Spent with Patient: Total time spent is greater than 50% in coordination of care (as documented) at patient's floor/unit and/or counseling patient: Coding Level of Care Code 06170 OFFICE CONSULT LVL Diagnoses Necrotizing pneumonia J85.0 Difficulty swallowing R13.10 Dysphagia type: unspecified Murmur R01.1 Weakness R53.1 Weight loss R63.4
[2024-03-18] MEDS: AMPICILLIN/SULBACTAM SOD 3,000 MG/100 ML BAG IV STA (13:17)
[2024-03-18] MEDS ORDERED: DEXTROSE 50% 50 ML SYRINGE IV PRN (13:47)
[2024-03-18] MEDS ORDERED: GLUCOSE 10 TAB/TUBE PO PRN (13:47)
[2024-03-18] MEDS ORDERED: GLUCOSE 40% GEL 15 GM TUBE PO PRN (13:47)
[2024-03-18] MEDS ORDERED: CARBOHYDRATES FOR HYPOGLYCEMIA PO PRN (13:47)
[2024-03-18] MEDS ORDERED: POLYETHYLENE (MIRALAX) 17 GM PACK PO PRN (13:47)
[2024-03-18] MEDS ORDERED: PANTOprazole 40 MG TAB PO SCH (13:47)
[2024-03-18] MEDS ORDERED: GLUCAGON FOR INJ 1 MG VIAL SQ PRN (13:47)
[2024-03-18] MEDS ORDERED: ONDANSETRON INJ 2 MG/ML 2 ML VIAL IV PRN (13:47)
[2024-03-18] MEDS ORDERED: VANCOMYCIN HCL 1,000 MG in SODIUM CHLORIDE 0.9% 500 ML IV SCH (13:47)
[2024-03-18] MEDS ORDERED: VANCOMYCIN CONSULT ACTIVE PRN (13:47)
--- NOTE | 2024-03-18 14:09 | Pharmacy Report ---
Pharmacy PK ABX Note - Date of Service March 18, 2024 - Assessment and Plan Assessment 78 year old M receiving vancomycin and zosyn for treatment of necrotizing pneumonia. MRSA nasal pending, blood and sputum cultures pending. Renal function stable. Day #1 of antimicrobial therapy. Plan Vancomycin * Loading dose: 1250 mg IV x 1 * Maintenance dose: [] mg IV every [] hours * Regimen is predicted to achieve target AUC/SHARI of 400-600 mg/L.hr * [Trough] [Random] level ordered for: []/[]/[] Pharmacy will continue to follow and will adjust dose/frequency as necessary. Thank you. Pharmacy has transitioned to AUC monitoring for vancomycin. AUC/SHARI is the preferred PK/PD target and is associated with decreased risk of nephrotoxicity compared to traditional trough targets.
--- NOTE | 2024-03-18 15:14 | XCELERA ---
[id number] \\[id number]
[2024-03-18] MEDS: VANCOMYCIN HCL 1,250 MG in SODIUM CHLORIDE 0.9% 250 ML IV ONE (15:29)
[2024-03-18] MEDS: INSULIN ASPART PER UNIT CHARGE SC SCH (15:56)
[2024-03-18] MEDS ORDERED: AMPICILLIN/SULBACTAM SOD 3,000 MG/100 ML BAG IV SCH (18:00)
[2024-03-18] MEDS: PIPERACILLIN/TAZOBACTAM 4.5 GM/100 ML BAG IV ONE (18:00)
[2024-03-18] MEDS: SODIUM CHLOR 7% 4 ML NEB NEB SCH (19:39)
[2024-03-18] MEDS: TAMSULOSIN HCL 0.4 MG CAP PO SCH (21:35)
[2024-03-18] MEDS: ACETAMINOPHEN 325 MG TAB PO PRN (21:35)
[2024-03-18] MEDS: MELATONIN 3 MG TAB PO SCH (21:35)
[2024-03-18] MEDS: SENNA 8.6 MG TAB PO SCH (21:36)
[2024-03-18] MEDS: HEPARIN SOD 5,000 UNIT/0.5 ML VIAL SQ SCH (21:36)
[2024-03-18] MEDS: GABAPENTIN 100 MG CAP PO SCH (21:36)
[2024-03-18] MEDS: PIPERACILLIN/TAZOBACTAM 4.5 GM/100 ML BAG IV SCH (21:37)
[2024-03-19] MEDS: VANCOMYCIN HCL 750 MG in SODIUM CHLORIDE 0.9% 250 ML IV SCH (00:14)
[2024-03-19 04:47] LABS: Basophils # (auto) 0.02 K/uL (0.00-0.20); Basophils % (auto) 0.1 %; Eosinophils # (auto) 0.14 K/uL (0.00-0.50); Eosinophils % (auto) 0.9 %; Hematocrit (blood only) 26.6 % (42.0-52.0); Hemoglobin 8.8 g/dl (14.0-18.0); Immature Granulocytes # (auto) 0.08 K/uL (0.01-0.20); Immature Granulocytes % (auto) 0.5 %; Lymphocytes # (auto) 0.82 K/uL (1.20-3.40); Lymphocytes % (auto) 5.5 %; Mean Corpuscular Hgb Conc 33.1 g/dL (32.0-36.0); Mean Corpuscular Volume 87.8 fL (80.0-100.0); Mean Platelet Volume 9.9 fL (9.4-12.4); Monocytes # (auto) 1.12 K/uL (0.11-0.59); Monocytes % (auto) 7.6 %; Neutrophils # (auto) 12.64 K/uL (1.40-6.50); Neutrophils % (auto) 85.4 %; Platelet Count 381 K/uL (130-400); RDW Coefficient of Variation 13.2 % (11.5-14.5); RDW Standard Deviation 42.1 fL (36.4-46.3); Red Blood Count 3.03 M/uL (4.70-6.10); White Blood Count 14.82 K/ul (4.8-10.8)
[2024-03-19 05:18] LABS: Albumin Globulin Ratio 0.9 (0.9-2); Albumin Level 2.4 gm/dl (3.4-5.0); Bilirubin,Total 0.4 mg/dl (0.2-1.0); Calcium 8.8 mg/dl (8.6-10.3); Creatinine Clr Calc Pharmacy 68.4 ml/min; Est GFR (African American) 101.8 ml/min; Est GFR (Non-African American) 87.9 ml/min; Globulin 2.8 gm/dl (2.5-4.0); Magnesium 1.9 mg/dl (1.7-2.4); Phosphorus 2.9 mg/dl (2.5-4.9); Potassium 3.7 mmol/L (3.5-5.1); Total Protein 5.2 gm/dl (6.0-8.3)
[2024-03-19 07:06] LABS: Estimated Average Glucose 146 mg/dl; Hemoglobin A1C 6.7 % (4.5-5.6)
--- NOTE | 2024-03-19 07:33 | Hospitalist Progress Note ---
Date of Service March 19, 2024 Assessment & Plan (1) Necrotizing pneumonia: (2) Dysphagia: Plan Mr. Nas Lorenzo is a 78y/o M with PMHx significant for dyslipidemia, prediabetes, CAD s/p CABG x 2, history of ischemic stroke in 2020, mitral valve regurgitation, rheumatic heart disease, atherosclerosis of both carotid arteries, history of premature atrial contractions, BPH w/ LUTS, GERD and exercise-induced bronchospasm who presented to the ED on 03/18 for evaluation of food aversion and gradual weight loss over the past few months. He was found to have an extensive consolidation with multiple small foci of cavitation in his right upper and right middle lobes on admitting chest CT - these findings are suggestive of necrotizing pneumonia. Spoke with daughter for 30 minutes regarding patients plan for care. She states she will discuss with patient whether he wishes to pursue EGD or VFSS further. Plan is ultimately to discharge to [facility] as patient cannot care for self per daughter. Pending final decision from patient on EGD/VFSS, ID recommendations, and dispo with CM. PT/OT ordered. #Necrotizing Pneumonia WBC 17K, Biofire negative. UA notable for RBCs, but is otherwise negative. CT chest revealed an extensive right upper lobe and right middle lobe consolidation with multiple small foci of cavitation...Scattered infectious alveolar opacities also seen within the right lower lobe. Prominent mediastinal and left supraclavicular lymph nodes Van Zosyn started on admission -MRSA negative, discontinue Vanc -Pulmonary consulted, appreciated recs -Recommends abx and ID, signed off 03/19 -Discontinue Zosyn, start Unasyn -Sputum cultures and AFB ordered and pending -Aggressive pulm toilet with FV, IS, and hypertonic nebs -ECHO: negative for vegetations -Consult ID #Aversion to solid foods #Weight loss Patient states he does no have issue swallowing, he just doesn't like solids any longers and prefers liquids, denies cough/aspiration/etc -Swallow eval pending--however, patient refused -GI on consult for ?EGD given issue with solids -Will continue to discuss with patient #Failure to thrive #Protein calorie malnutrition BMI 19, notable weight loss reported in last year Psychiatric Tech consulted #Moderate aortic stenosis #Rheumatic Heart Disease: Patient with longstanding history of murmur and history of rheumatic heart disease having had rheumatic fever as a child per chart review. #Hypertension His BP has been persistently low in the ED - initial BP reading 83/46 when meeting with patient in the ED. BP recycled 92/54 at 10:58 and then again around 11:00, BP improved to ~110/60. 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 #Chronic normocytic anemia POA Hgb 10.6, Hct 33.1% and plt count 453. OP recent anemia work up shows normal ferritin, B12 and folate. #DMTII Hold home agents, initiating SSI regimen. BSG checks ACHS, Hgb A1c in AM - follow results. #H/O Ischemic Stroke [2020]: MRI [facility] on 09/25/2020 revealed lacunar infarcts of the right basal ganglia, right burgess radiata. He has ongoing neurologic deficits including mild dysarthria and some mild difficulties with his gait. continue with gabapentin. #CAD s/p CABG x 2 #Dyslipidemia Per [facility] documentation discovered during chart review: "Cardiac catheterization at the [facility] at that time revealed a right dominant coronary system with a 50% distal left main stenosis, 90% proximal LAD stenosis that involved the bifurcation with the first diagonal. He went on to have CABG x2 on 06/04/2010 at the [facility] with RODARTE to LAD and a vein graft to the circumflex coronary artery." 03/02, patient was to wear a 14-day Zio patch monitor given concern of potential atrial fibrillation; without an official diagnosis of atrial fibrillation. continue ASA and statin therapy. #BPH w/ LUTS Chronic, stable - continue Flomax. Patient's daughter, Ingrid, can be contacted at the following phone #: [phone]. DVT Prophylaxis: SQ Heparin Code Status: DNR/DNI - As per discussion with the patient in the ED at time of admission. PCP: Kristine Augustin MD Disposition: downgrade to [facility] Admission and Anticipated Discharge Date Admission Date: March 18, 2024 Subjective NAEO Patient reports that he is feeling better in regards to his cough He notes that he does note have a "mechanical issue" with swallowing but rather a solid food "aversion" and loss of appetite He states he lives alone but his daughter is near by and follows him closely He denies chest pain or abdominal discomfort He notes that the weightloss is not unintentional but rather his "own will" given he willingly drinks only 1 boost a day He denies coughing or choking and refuses VFSS Physical Exam Constitutional: thin gentleman, alert and oriented Respiratory: scattered rhonchi, cough+ with deep inhalation Cardiovascular: +BELLA Gastrointestinal (Abdomen): normal bowel sounds, soft, nontender, no hepatosplenomegaly Neurologic: PERRL, EOMI, accommodation nl, no face palsy, no dysarthria Results & Data Results & Data Vital Signs (Past 12 Hours) Vital Signs Temp Pulse Pulse Resp BP Pulse Ox O2 Del Method 03/19/24 07:01 60 18 97 Room Air 03/19/24 06:00 70 16 94 03/19/24 04:18 73 22 94 03/19/24 04:00 96/51 L 03/19/24 04:00 36.8 C 03/19/24 03:54 70 15 93 03/19/24 02:33 68 20 96 03/19/24 00:00 77 19 94/50 L 94 03/19/24 00:00 36.8 C 03/18/24 23:59 77 03/18/24 22:06 78 19 96 03/18/24 21:40 Room Air 03/18/24 20:16 71 18 96 Room Air 03/18/24 20:00 86 25 H 96 Laboratory Results Short CBC 03/19/24 Range/Units 04:12 WBC 14.82 H (4.8-10.8) K/ul Hgb 8.8 L (14.0-18.0) g/dl Hct 26.6 L (42.0-52.0) % Plt Count 381 (130-400) K/uL BMP 03/19/24 04:12 Sodium 136 Potassium 3.7 Chloride 105 Carbon Dioxide 26 BUN 27 H Creatinine 0.75 Glucose 115 H Calcium 8.8 Liver Function 03/19/24 Range/Units 04:12 Total Bilirubin 0.4 (0.2-1.0) mg/dl AST 18 (13-39) U/L ALT 12 (7-52) U/L Alkaline Phosphatase 67 (34-104) U/L Albumin 2.4 L (3.4-5.0) gm/dl Urine 03/18/24 Range/Units 11:18 Urine Color Yellow Urine Appearance Cloudy A (Clear) Urine pH 8.5 H (4.5-7.5) Ur Specific Dolph > 1.045 H (1.000-1.030) Urine Protein 1+ H (Negative) Urine Glucose (UA) Negative (Negative) Medications Administered Home Medications Medication Instructions Recorded Confirmed Last Taken Cortisol Motion Picture Actor Botanical 1 tab PO DAILY 09/03/20 03/18/24 09/21/20 ascorbic acid (vitamin C) 1,000 mg 1 g PO DAILY 09/03/20 03/18/24 09/21/20 tablet (Vitamin C) aspirin 81 mg tablet,delayed 81 mg PO DAILY 09/03/20 03/18/24 09/21/20 release coenzyme Q10 100 mg capsule 600 mg PO DAILY 09/03/20 03/18/24 09/21/20 (CoQ-10) garlic 2,000 mg PO DAILY 09/03/20 03/18/24 09/21/20 isosorbide mononitrate 60 mg 60 mg PO DAILYBB 09/03/20 03/18/24 09/21/20 tablet,extended release 24 hr melatonin 5 mg tablet 5 mg PO HS 09/03/20 03/18/24 09/20/20 metformin 500 mg tablet 500 mg PO BID 09/03/20 03/18/24 09/21/20 08:00 (Glucophage) nitroglycerin 0.4 mg sublingual 0.4 mg sublingual UD PRN Chest Pain 09/03/20 03/18/24 Unknown tablet (Nitrostat) pantoprazole 40 mg tablet,delayed 40 mg PO UD 09/03/20 03/18/24 09/21/20 release saw palmetto 80 mg capsule 320 mg PO BID 09/03/20 03/18/24 09/21/20 08:00 tamsulosin 0.4 mg capsule (Flomax) 0.4 mg PO HS 09/03/20 03/18/24 09/20/20 [place] Bark Extract 1 tab PO DAILY 09/04/20 03/18/24 09/21/20 cholecalciferol (vitamin D3) 125 125 mcg PO DAILY 09/04/20 03/18/24 09/21/20 mcg (5,000 unit) tablet (Vitamin D3) multivitamin 1 tab PO DAILY 09/04/20 03/18/24 09/21/20 sennosides 8.6 mg tablet (senna) 17.2 mg PO HS 09/04/20 03/18/24 09/20/20 vitamin B complex 1 tab PO DAILY 09/04/20 03/18/24 09/21/20 atorvastatin 40 mg tablet 40 mg PO DAILY 09/22/20 03/18/24 Unknown omega 0-txy-vts-fish oil 1,000 mg 1 cap PO DAILY 09/22/20 03/18/24 09/21/20 (120 mg-180 mg) capsule (Fish Oil) zinc sulfate 50 mg zinc (220 mg) 220 mg PO DAILY PRN Other 09/22/20 03/18/24 09/21/20 tablet acetaminophen 325 mg capsule 650 mg PO Q4H PRN Pain 10/24/20 03/18/24 Unknown (Tylenol) lisinopril 2.5 mg tablet 2.5 mg PO DAILY 10/24/20 03/18/24 Unknown metoprolol tartrate 50 mg tablet 12.5 mg PO BID 10/24/20 03/18/24 Unknown (Lopressor) Calcium And Magnesium 1 tab PO DAILY 03/18/24 03/18/24 Unknown gabapentin 100 mg capsule 200 mg PO HS 03/18/24 03/18/24 Unknown (Neurontin) Active Medications Generic Name Dose Route Start Last Admin Trade Name Freq PRN Reason Stop Dose Admin Acetaminophen 650 mg 03/18/24 13:47 03/18/24 21:35 Acetaminophen 325 Mg Tab PO 04/17/24 13:46 650 mg Q4H PRN Administration pain/fever Aspirin 81 mg 03/19/24 09:00 03/19/24 08:31 Aspirin 81 Mg Ectab PO 04/18/24 08:59 81 mg DAILY SOPHIA Administration Atorvastatin Calcium 40 mg 03/19/24 09:00 03/19/24 08:31 Atorvastatin 40 Mg Tab PO 04/18/24 08:59 40 mg DAILY SOPHIA Administration Gabapentin 200 mg 03/18/24 21:00 03/18/24 21:36 Gabapentin 100 Mg Cap PO 04/17/24 20:59 200 mg HS SOPHIA Administration Heparin Sodium (Porcine) 5,000 units 03/18/24 21:00 03/19/24 08:31 Heparin Sod 5,000 Unit/0.5 Ml Vial SQ 04/17/24 20:59 5,000 units Q12 SOPHIA Administration Insulin Aspart 0 units 03/18/24 14:00 03/19/24 08:17 Insulin Aspart Per Unit Charge SC 04/17/24 13:59 Not Given ACHS SOPHIA Melatonin 3 mg 03/18/24 21:00 03/18/24 21:35 Melatonin 3 Mg Tab PO 04/17/24 20:59 3 mg HS SOPHIA Administration Protocol Multivitamins 1 tab 03/19/24 09:00 03/19/24 08:31 Multivitamin Tab PO 04/18/24 08:59 1 tab QAM SOPHIA Administration Sennosides 17.2 mg 03/18/24 21:00 03/18/24 21:36 Senna 8.6 Mg Tab PO 04/17/24 20:59 17.2 mg HS SOPHIA Administration Sodium Chloride 4 ml 03/18/24 19:00 03/19/24 07:01 Sodium Chlor 7% 4 Ml Neb NEB 04/17/24 18:59 4 ml BIDR SOPHIA Administration Tamsulosin HCl 0.4 mg 03/18/24 21:00 03/18/24 21:35 Tamsulosin Hcl 0.4 Mg Cap PO 04/17/24 20:59 Not Given HS SOPHIA (2) Dysphagia Dysphagia type: unspecified Qualified Code(s): R13.10 - Dysphagia, unspecified
[2024-03-19] MEDS: MULTIVITAMIN TAB PO SCH (08:31)
[2024-03-19] MEDS: ASPIRIN 81 MG ECTAB PO SCH (08:31)
[2024-03-19] MEDS: ATORVASTATIN 40 MG TAB PO SCH (08:31)
--- NOTE | 2024-03-19 09:30 | Pulmonology Progress Note ---
Date of Service March 19, 2024 Assessment & Plan (1) Necrotizing pneumonia: (2) Difficulty swallowing: Dysphagia type: unspecified Qualified Code(s): R13.10 - Dysphagia, unspecified (3) Murmur: (4) Weakness: (5) Weight loss: Plan IMPRESSION: 78-year-old male with a history of swallowing difficulty posterior who presents with productive cough and findings of RIGHT mid/upper lobe infi ltrative process concerning for multifocal aspiration pneumonia. He is clinically better this morning and on room air with a decreased white blood cell count RECOMMENDATIONS: 1. Probable aspiration pneumonia: Speech therapy evaluation currently pending. Sputum culture showed white blood cells with gram-positive cocci and rare epithelial cells. Day #2 Zosyn and vancomycin after having received Rocephin and Unasyn. Cultures no growth to date. Patient does not require antipseudomonal coverage so Zosyn will be discontinued. Unasyn would be appropriate. Vancomycin not required in the long-term. Await cultures. Can likely de-escalate antibiotics to oral Augmentin once the patient is cleared to take p.o. Would anticipate 6 to 8 weeks of antimicrobial therapy and a follow- up CT scan at that point in time. 2. Swallowing difficulty -await swallow 3. Generalized failure to thrive - Likely secondary to #1 and 2. Appreciate other service input. 4. Murmur - Noted in the setting of rheumatic heart disease. Per primary service 5. Anemia: Per primary service. Patient appears relatively stable from a pulmonary perspective. Will require prolonged antibiotics. Consultation with infectious disease may be appropriate and is deferred to the patient's primary service. His acute pulmonary issues are resolving and would recommend management as noted above. Would be happy to see him back in the outpatient pulmonary clinic if needed. Feel free to contact us with questions or concerns. Pulmonary will sign off Admission and Anticipated Discharge Date Admission Date: March 18, 2024 Subjective Patient seen and examined. EMR reviewed. Discussed with bedside critical care nurse. The patient is frustrated that he is not sleeping. He feels that ambient noise is quite disruptive. He has multiple questions about his care and diagnostic processes. He has been afebrile and hemodynamically stable. He is pending swallow evaluation. Review of Systems Review of Systems: All systems reviewed & are unremarkable except as noted in Subjective Physical Exam Constitutional: + thin and + cachectic; no acute distres s Neck: trachea midline, no thyromegaly Respiratory: no respiratory distress, no labored breathing, no cough and not tachypneic Auscultation: + rhonchi Cardiovascular: RRR, no murmur, no edema Gastrointestinal (Abdomen): normal bowel sounds, soft, nontender, no hepatosplenomegaly Musculoskeletal: Extremities: extremities normal to inspection Skin: no rashes, warm and dry Neurologic: Nonfocal exam Lymphatic: no cervical lymphadenopathy Results & Data Results & Data Vital Signs (Past 12 Hours) Vital Signs Temp Pulse Pulse Resp BP Pulse Ox O2 Del Method 03/19/24 07:01 60 18 97 Room Air 03/19/24 06:00 70 16 94 03/19/24 04:18 73 22 94 03/19/24 04:00 96/51 L 03/19/24 04:00 36.8 C 03/19/24 03:54 70 15 93 03/19/24 02:33 68 20 96 03/19/24 00:00 77 19 94/50 L 94 03/19/24 00:00 36.8 C 03/18/24 23:59 77 03/18/24 22:06 78 19 96 03/18/24 21:40 Room Air Critical Care Results & Data Vital Signs (Past 12 Hours) Vital Signs Temp Pulse Pulse Resp BP Pulse Ox O2 Del Method 03/19/24 07:01 60 18 97 Room Air 03/19/24 06:00 70 16 94 03/19/24 04:18 73 22 94 03/19/24 04:00 96/51 L 03/19/24 04:00 36.8 C 03/19/24 03:54 70 15 93 03/19/24 02:33 68 20 96 03/19/24 00:00 77 19 94/50 L 94 03/19/24 00:00 36.8 C 03/18/24 23:59 77 03/18/24 22:06 78 19 96 03/18/24 21:40 Room Air Lab & Micro Results (Past 24 Hours) RBC 3.03 M/uL (4.70-6.10) L 03/19/24 WBC 14.82 K/ul (4.8-10.8) H 03/19/24 Hgb 8.8 g/dl (14.0-18.0) L 03/19/24 Hct 26.6 % (42.0-52.0) L 03/19/24 MCV 87.8 fL (80.0-100.0) 03/19/24 MCH 29.0 pg (25.0-34.0) 03/19/24 MCHC 33.1 g/dL (32.0-36.0) 03/19/24 RDW Standard Deviation 42.1 fL (36.4-46.3) 03/19/24 RDW Coefficient of Variation 13.2 % (11.5-14.5) 03/19/24 Plt Count 381 K/uL (130-400) 03/19/24 MPV 9.9 fL (9.4-12.4) 03/19/24 Neutrophils (%) (Auto) 85.4 % 03/19/24 Lymphocytes (%) (Auto) 5.5 % 03/19/24 Monocytes # (Auto) 1.12 K/uL (0.11-0.59) H 03/19/24 Eosinophils # (Auto) 0.14 K/uL (0.00-0.50) 03/19/24 Immature Granulocyte % (Auto) 0.5 % 03/19/24 Neutrophils # (Auto) 12.64 K/uL (1.40-6.50) H 03/19/24 Lymphocytes # (Auto) 0.82 K/uL (1.20-3.40) L 03/19/24 Monocytes # (Auto) 1.12 K/uL (0.11-0.59) H 03/19/24 Eosinophils # (Auto) 0.14 K/uL (0.00-0.50) 03/19/24 Basophils # (Auto) 0.02 K/uL (0.00-0.20) 03/19/24 Immature Granulocyte # (Auto) 0.08 K/uL (0.01-0.20) 4 Na 136 mmol/L (136-145) 03/19/24 K 3.7 mmol/L (3.5-5.1) 03/19/24 Cl 105 mmol/L (98-107) 03/19/24 CO2 26 mmol/L (21-32) 03/19/24 Anion Gap 5 (3-11) 03/19/24 BUN 27 mg/dl (6-23) H 03/19/24 Creatinine 0.75 mg/dl (0.6-1.4) 03/19/24 Estimated GFR ( Amer) 101.8 ml/min 03/19/24 Estimated GFR (Non-Af Amer) 87.9 ml/min 03/19/24 BUN/Creatinine Ratio 36.0 (10-20) H 03/19/24 Glu 115 mg/dl (70-99(Fasting)) H 03/19/24 Ca 8.8 mg/dl (8.6-10.3) 03/19/24 Phosphorus Level 2.9 mg/dl (2.5-4.9) 03/19/24 Total Bilirubin 0.4 mg/dl (0.2-1.0) 03/19/24 AST 18 U/L (13-39) 03/19/24 ALT 12 U/L (7-52) 03/19/24 Alkaline Phosphatase 67 U/L (34-104) 03/19/24 TP 5.2 gm/dl (6.0-8.3) L 03/19/24 Albumin 2.4 gm/dl (3.4-5.0) L 03/19/24 Globulin 2.8 gm/dl (2.5-4.0) 03/19/24 Albumin/Globulin Ratio 0.9 (0.9-2) 03/19/24 Mg 1.9 mg/dl (1.7-2.4) 03/19/24 04:12 Calcium Level 8.8 mg/dl (8.6-10.3) 03/19/24 04:12 Microbiology 03/18/24 12:52 Gram Stain - Final Sputum, Expectorated Diagnostic Findings (Past 24 Hours) Chest CT 03/18/24 08:45 CT OF THE CHEST WITH IV CONTRAST CLINICAL HISTORY: likely pneumonia on xray COMPARISON STUDY: Chest radiograph February 15, 2023 and March 18, 2024. TECHNIQUE: Following IV administration of 94 mL of Optiray, helical axial images of the chest were obtained. Sagittal and coronal reconstructions were viewed as well as maximal intensity projections on an independent 3-D workstation. Automated exposure control was utilized for the study. A dose lowering technique was utilized adhering to the principles of ALARA. CT DOSE: 369.44 mGy.cm FINDINGS: A prominent left supraclavicular lymph node measures 1.5 x 0.9 cm. A prominent subcarinal lymph node measures 1.7 x 1.1 cm. There are median sternotomy wires. Postoperative findings from bypass grafting are noted. There is moderate aortic valvular calcification. The heart is mildly enlarged. There is no pericardial effusion. No pneumothorax or pleural effusion is present. The central airways are patent. There is a small hiatal hernia. Note is made of extensive right upper lobe and right middle lobe consolidation with small foci of cavitation. Areas of decreased attenuation within the lungs are present. There are scattered alveolar opacities within the right lower lobe. Left lung is clear. No suspicious lesions within the bony thorax are present. Visualized portions of the upper abdomen are unremarkable. IMPRESSION: 1. Extensive right upper lobe and right middle lobe consolidation with multiple small foci of cavitation. The findings suggest necrotizing pneumonia. A follow- up chest CT in 2 months to ensure resolution is recommended. 2. Scattered alveolar opacities within the right lower lobe, also infectious. 3. Prominent mediastinal and left supraclavicular lymph nodes. These may be reactive and can be assessed on follow-up CT. ACT 112: Negative or not required by law. Electronically signed by: Micheal Escobar M.D. 03/18/2024 9:57 AM I & O Totals 24 Hours 03/18/24 03/19/24 03/20/24 06:59 06:59 06:59 Intake Total 3810.833 / 3810.833 Output Total 75 / 75 Balance 3735.833 / 3735.833 Cumulative 03/18/24 07:17 thru 03/19/24 06:42 Intake Total 3810.833 Output Total 75 Balance 3735.833 RT Ventilator Mngmt (Last Documented) Ventilator Ordered Settings Respiratory Rate 18 03/19/24 07:01 Ventilator - PT Measurements Respiratory Rate 18 PG Care Time/CCT Total # of Minutes Spent Total Time Spent with Patient: Total time spent is greater than 50% in coordination of care (as documented) at patient's floor/unit and/or counseling patient: Coding Level of Care Code 54610 SUB INP/OBS CARE 2/35MIN Diagnoses Necrotizing pneumonia J85.0 Difficulty swallowing R13.10 Dysphagia type: unspecified Murmur R01.1 Weakness R53.1 Weight loss R63.4
--- NOTE | 2024-03-19 09:41 | Gastrointestinal Consultation ---
Date of Consultation March 19, 2024 Assessment & Plan (1) Pneumonia: 78 year old male with history of dyslipidemia, prediabetes, CAD s/p CABG x 2, history of ischemic stroke in 2020, mitral valve regurgitation, rheumatic heart disease, atherosclerosis of both carotid arteries, history of premature atrial contractions, BPH w/ LUTS, GERD and exercise-induced bronchospasm admitted to the ICU w/ necrotizing PNA, concern for aspiration PNA, he denies any obvious swallowing difficulties but suggests decreased appetite and on interest in food. Agree w/ FISH HATCHERY MANAGER evaluation given concern for aspiration PNA. We discussed a diagnostic endoscopic evaluation, he is not sure how he would like to proceed. Given his active PNA, test would not be performed today. No GI contraindication to diet that is recommended by FISH HATCHERY MANAGER. GI will plan for EGD AM. I asked Nas to consider the testing, discussed risks/benefits and to update his care team if he is not agreeable to the EGD evaluation. If he is agreeable, please keep Nas NPO after midnight for evaluation on Friday. We appreciate assistance in the management of any serological abnormality and corrections to include: hemoglobin >7, INR <2, platelets >50,000, potassium levels >3.5 but <5.3, and sodium levels within 5 points of the reference range prior to endoscopic evaluation. I spent a total of 60 minutes on the date of service in review of patient's record, and previously obtained information in person and appropriate medical visit, discussion and education of plan, with patient and/or caregiver, placing orders for tests/referral/procedures as medically necessary and documentation of pertinent clinical information in patient's medical records for their visit today.Thank you for allowing us to participate in the care of this patient. Please call with any acute changes, questions or concerns. Please see addendum below with additional recommendation from my supervising physician. Supervising Physician Co-Signing Physician Notes I saw and examined this patient with our nurse practitioner and agree with her assessment and plan. Difficult to elicit any significant symptoms of dysphagia. At the present time he is denying any significant GI symptoms. His major com plaints are lack of appetite and recent weight loss of 50 pounds by report. Benign abdominal exam. He does limit his food to mostly liquids and soft foods. He is reluctant to undergo any endoscopic procedure at this time. We suggest starting with speech therapy swallowing study as well as an esophagram to exclude any significant esophageal pathology. History of Present Illness Reason for Consultation: dysphagia Requesting Physician: Rachael Attending Physician: Alicia Cano MD History of Present Illness 78 year old male with history of dyslipidemia, prediabetes, CAD s/p CABG x 2, history of ischemic stroke in 2020, mitral valve regurgitation, rheumatic heart disease, atherosclerosis of both carotid arteries, history of premature atrial contractions, BPH w/ LUTS, GERD and exercise-induced bronchospasm admitted to the ICU w/ necrotizing PNA - GI was asked to evaluate for dysphagia. Pt was seen and evaluated, chart reviewed. Nursing staff at bedside at time of my discussion. He is frustrated - tells me he has not had any issues swallowing and is unclear why I am asking him about his oral intake. He tells me he chooses not to eat as food does not appeal to him and he has no interest in eating or appetite. Denies abdominal pain. No nausea, vomiting. I asked him if I offered this favorite food, if he notices any issues with chewing, transferring bolus of food or feeling like the food empties slowly down his esophagus. He tells me he is not sure and does not recall having any issues with swallowing. Denies black or bloody stools. EGD/Colonoscopy: none at [place], he is not sure where he has had these tests in the past Chest CT 2023: . Extensive right upper lobe and right middle lobe consolidation with multiple small foci of cavitation. The findings suggest necrotizing pneumonia. A follow-up chest CT in 2 months to ensure resolution is recommended. Scattered alveolar opacities within the right lower lobe, also infectious. Prominent mediastinal and left supraclavicular lymph nodes. These may be reactive and can be assessed on follow-up CT. Allergies Allergy/AdvReac Type Severity Reaction Status Date / Time No Known Allergies Allergy Verified 09/22/20 02:36 Home Medications Medication Instructions Recorded Confirmed Type Cortisol Animal Laboratory Technician Botanical 1 tab PO DAILY 09/03/20 03/18/24 History ascorbic acid (vitamin C) 1,000 mg 1 g PO DAILY 09/03/20 03/18/24 History tablet (Vitamin C) aspirin 81 mg tablet,delayed 81 mg PO DAILY 09/03/20 03/18/24 History release coenzyme Q10 100 mg capsule 600 mg PO DAILY 09/03/20 03/18/24 History (CoQ-10) garlic 2,000 mg PO DAILY 09/03/20 03/18/24 History isosorbide mononitrate 60 mg 60 mg PO DAILYBB 09/03/20 03/18/24 History tablet,extended release 24 hr melatonin 5 mg tablet 5 mg PO HS 09/03/20 03/18/24 History metformin 500 mg tablet 500 mg PO BID 09/03/20 03/18/24 History (Glucophage) nitroglycerin 0.4 mg sublingual 0.4 mg sublingual UD PRN Chest Pain 09/03/20 03/18/24 History tablet (Nitrostat) pantoprazole 40 mg tablet,delayed 40 mg PO UD 09/03/20 03/18/24 History release saw palmetto 80 mg capsule 320 mg PO BID 09/03/20 03/18/24 History tamsulosin 0.4 mg capsule (Flomax) 0.4 mg PO HS 09/03/20 03/18/24 History [place] Bark Extract 1 tab PO DAILY 09/04/20 03/18/24 History cholecalciferol (vitamin D3) 125 125 mcg PO DAILY 09/04/20 03/18/24 History mcg (5,000 unit) tablet (Vitamin D3) multivitamin 1 tab PO DAILY 09/04/20 03/18/24 History sennosides 8.6 mg tablet (senna) 17.2 mg PO HS 09/04/20 03/18/24 History vitamin B complex 1 tab PO DAILY 09/04/20 03/18/24 History atorvastatin 40 mg tablet 40 mg PO DAILY 09/22/20 03/18/24 History omega 3-xym-odd-fish oil 1,000 mg 1 cap PO DAILY 09/22/20 03/18/24 History (120 mg-180 mg) capsule (Fish Oil) zinc sulfate 50 mg zinc (220 mg) 220 mg PO DAILY PRN Other 09/22/20 03/18/24 History tablet acetaminophen 325 mg capsule 650 mg PO Q4H PRN Pain 10/24/20 03/18/24 History (Tylenol) lisinopril 2.5 mg tablet 2.5 mg PO DAILY 10/24/20 03/18/24 History metoprolol tartrate 50 mg tablet 12.5 mg PO BID 10/24/20 03/18/24 History (Lopressor) Calcium And Magnesium 1 tab PO DAILY 03/18/24 03/18/24 History gabapentin 100 mg capsule 200 mg PO HS 03/18/24 03/18/24 History (Neurontin) Patient History Medical History CAD (coronary artery disease) Type 2 diabetes mellitus Pre-operative cardiovascular examination Dyslipidemia Social History Smoking Status: Never smoker Tobacco Type: Pipe Second Hand Exposure: No; Do You Dip or Chew Tobacco: No; Hx Alcohol Use: Yes Alcohol type: beer and wine Hx Substance Use: No Preferred Language: Faroese Communication Ability: Effective Regional Service Manager Required: No Beliefs That Will Affect Care: Pentecostalism Pentecostalism Beliefs: Uatsdin Current Living Situation: Alone Feels Safe at Home: Yes Assistive Devices: Cane, Glasses and Walker Review of Systems Review of Systems: All other findings negative except as noted in HPI. Physical Exam Constitutional: WD/WN, vitals as above thin Respiratory: normal respiratory effort on room air, rhonci scattered Cardiovascular: Rate/Rhythm: regular rate Gastrointestinal (Abdomen): Percussion/Palpation: abdomen soft; abdomen nontender Skin: no rashes, warm and dry Results & Data Vital Signs (Past 12 Hours) Vital Signs Temp Pulse Pulse Resp BP Pulse Ox O2 Del Method 03/19/24 07:01 60 18 97 Room Air 03/19/24 06:00 70 16 94 03/19/24 04:18 73 22 94 03/19/24 04:00 96/51 L 03/19/24 04:00 36.8 C 03/19/24 03:54 70 15 93 03/19/24 02:33 68 20 96 03/19/24 00:00 77 19 94/50 L 94 03/19/24 00:00 36.8 C 03/18/24 23:59 77 03/18/24 22:06 78 19 96 03/18/24 21:40 Room Air Laboratory Results 03/19/24 03/19/24 03/18/24 Range/Units 08:05 04:12 21:27 WBC 14.82 H (4.8-10.8) K/ul RBC 3.03 L (4.70-6.10) M/uL Hgb 8.8 L (14.0-18.0) g/dl Hct 26.6 L (42.0-52.0) % MCV 87.8 (80.0-100.0) fL MCH 29.0 (25.0-34.0) pg MCHC 33.1 (32.0-36.0) g/dL RDW Std Deviation 42.1 (36.4-46.3) fL RDW Coeff of [place] 13.2 (11.5-14.5) % Plt Count 381 (130-400) K/uL MPV 9.9 (9.4-12.4) fL Immature Gran % (Auto) 0.5 % Neut % (Auto) 85.4 % Lymph % (Auto) 5.5 % Falls % (Auto) 7.6 % Eos % (Auto) 0.9 % Baso % (Auto) 0.1 % Neut # (Auto) 12.64 H (1.40-6.50) K/uL Lymph # (Auto) 0.82 L (1.20-3.40) K/uL Falls # (Auto) 1.12 H (0.11-0.59) K/uL Eos # (Auto) 0.14 (0.00-0.50) K/uL Baso # (Auto) 0.02 (0.00-0.20) K/uL Immature Gran # (Auto) 0.08 (0.01-0.20) K/uL Sodium 136 (136-145) mmol/L Potassium 3.7 (3.5-5.1) mmol/L Chloride 105 (98-107) mmol/L Carbon Dioxide 26 (21-32) mmol/L Anion Gap 5 (3-11) BUN 27 H (6-23) mg/dl Creatinine 0.75 (0.6-1.4) mg/dl Est Cr Clr Drug Dosing 68.4 ml/min Est GFR ( Amer) 101.8 ml/min Est GFR (Non-Af Amer) 87.9 ml/min BUN/Creatinine Ratio 36.0 H (10-20) Glucose 115 H (70-99(Fasting)) mg/dl POC Glucose 103 H 106 H (70-99) mg/dl Estimat Average Glucose 146 mg/dl Hemoglobin A1c 6.7 H (4.5-5.6) % Calcium 8.8 (8.6-10.3) mg/dl Phosphorus 2.9 (2.5-4.9) mg/dl Magnesium 1.9 (1.7-2.4) mg/dl Total Bilirubin 0.4 (0.2-1.0) mg/dl AST 18 (13-39) U/L ALT 12 (7-52) U/L Alkaline Phosphatase 67 (34-104) U/L Total Protein 5.2 L D (6.0-8.3) gm/dl Albumin 2.4 L (3.4-5.0) gm/dl Globulin 2.8 (2.5-4.0) gm/dl Albumin/Globulin Ratio 0.9 (0.9-2) Vitamin B12 > 1500 H (180-914) pg/ml Urine Color Urine Appearance (Clear) Urine pH (4.5-7.5) Ur Specific [place] (1.000-1.030) Urine Protein (Negative) Urine Glucose (UA) (Negative) Urine Ketones (Negative) Urine Blood (Negative) Urine Nitrite (Negative) Urine Bilirubin (Negative) Urine Urobilinogen (Negative) Ur Leukocyte Esterase (Negative) Urine WBC (Auto) (0-5) /hpf Urine RBC (Auto) (0-2) /hpf U Hyaline Cast (Auto) (0-2) /lpf U Epithel Cells (Auto) (0-2) /hpf Urine Bacteria (Auto) (None Seen) Nasal Screen MRSA (PCR) (Negative) Adenovirus (PCR) (NotDetected) B. pertussis DNA (PCR) (NotDetected) B.parapertussis DNA PCR (NotDetected) C. pneumoniae DNA (PCR) (NotDetected) Coronavirus OC43 (PCR) (NotDetected) Coronavirus HKU1 (PCR) (NotDetected) Coronavirus 229E (PCR) (NotDetected) SARS-CoV-2 (PCR) (NotDetected) Coronavirus NL63 (PCR) (NotDetected) Human Metapneumovir PCR (NotDetected) Influenza Type A (PCR) (NotDetected) Influenza Type B (PCR) (NotDetected) M. pneumoniae (PCR) (NotDetected) Parainfluenza 1 (PCR) (NotDetected) Parainfluenza 2 (PCR) (NotDetected) Parainfluenza 3 (PCR) (NotDetected) Parainfluenza 4 (PCR) (NotDetected) RSV (PCR) (NotDetected) Entero/Rhino (PCR) (NotDetected) 03/18/24 03/18/24 03/18/24 Range/Units 16:36 15:45 12:36 WBC (4.8-10.8) K/ul RBC (4.70-6.10) M/uL Hgb (14.0-18.0) g/dl Hct (42.0-52.0) % MCV (80.0-100.0) fL MCH (25.0-34.0) pg MCHC (32.0-36.0) g/dL RDW Std Deviation (36.4-46.3) fL RDW Coeff of [place] (11.5-14.5) % Plt Count (130-400) K/uL MPV (9.4-12.4) fL Immature Gran % (Auto) % Neut % (Auto) % Lymph % (Auto) % Falls % (Auto) % Eos % (Auto) % Baso % (Auto) % Neut # (Auto) (1.40-6.50) K/uL Lymph # (Auto) (1.20-3.40) K/uL Falls # (Auto) (0.11-0.59) K/uL Eos # (Auto) (0.00-0.50) K/uL Baso # (Auto) (0.00-0.20) K/uL Immature Gran # (Auto) (0.01-0.20) K/uL Sodium (136-145) mmol/L Potassium (3.5-5.1) mmol/L Chloride (98-107) mmol/L Carbon Dioxide (21-32) mmol/L Anion Gap (3-11) BUN (6-23) mg/dl Creatinine (0.6-1.4) mg/dl Est Cr Clr Drug Dosing ml/min Est GFR ( Amer) ml/min Est GFR (Non-Af Amer) ml/min BUN/Creatinine Ratio (10-20) Glucose (70-99(Fasting)) mg/dl POC Glucose 158 H 174 H (70-99) mg/dl Estimat Average Glucose mg/dl Hemoglobin A1c (4.5-5.6) % Calcium (8.6-10.3) mg/dl Phosphorus (2.5-4.9) mg/dl Magnesium (1.7-2.4) mg/dl Total Bilirubin (0.2-1.0) mg/dl AST (13-39) U/L ALT (7-52) U/L Alkaline Phosphatase (34-104) U/L Total Protein (6.0-8.3) gm/dl Albumin (3.4-5.0) gm/dl Globulin (2.5-4.0) gm/dl Albumin/Globulin Ratio (0.9-2) Vitamin B12 (180-914) pg/ml Urine Color Urine Appearance (Clear) Urine pH (4.5-7.5) Ur Specific [place] (1.000-1.030) Urine Protein (Negative) Urine Glucose (UA) (Negative) Urine Ketones (Negative) Urine Blood (Negative) Urine Nitrite (Negative) Urine Bilirubin (Negative) Urine Urobilinogen (Negative) Ur Leukocyte Esterase (Negative) Urine WBC (Auto) (0-5) /hpf Urine RBC (Auto) (0-2) /hpf U Hyaline Cast (Auto) (0-2) /lpf U Epithel Cells (Auto) (0-2) /hpf Urine Bacteria (Auto) (None Seen) Nasal Screen MRSA (PCR) Negative (Negative) Adenovirus (PCR) (NotDetected) B. pertussis DNA (PCR) (NotDetected) B.parapertussis DNA PCR (NotDetected) C. pneumoniae DNA (PCR) (NotDetected) Coronavirus OC43 (PCR) (NotDetected) Coronavirus HKU1 (PCR) (NotDetected) Coronavirus 229E (PCR) (NotDetected) SARS-CoV-2 (PCR) (NotDetected) Coronavirus NL63 (PCR) (NotDetected) Human Metapneumovir PCR (NotDetected) Influenza Type A (PCR) (NotDetected) Influenza Type B (PCR) (NotDetected) M. pneumoniae (PCR) (NotDetected) Parainfluenza 1 (PCR) (NotDetected) Parainfluenza 2 (PCR) (NotDetected) Parainfluenza 3 (PCR) (NotDetected) Parainfluenza 4 (PCR) (NotDetected) RSV (PCR) (NotDetected) Entero/Rhino (PCR) (NotDetected) 03/18/24 03/18/24 Range/Units 11:18 08:05 WBC (4.8-10.8) K/ul RBC (4.70-6.10) M/uL Hgb (14.0-18.0) g/dl Hct (42.0-52.0) % MCV (80.0-100.0) fL MCH (25.0-34.0) pg MCHC (32.0-36.0) g/dL RDW Std Deviation (36.4-46.3) fL RDW Coeff of Yanique (11.5-14.5) % Plt Count (130-400) K/uL MPV (9.4-12.4) fL Immature Gran % (Auto) % Neut % (Auto) % Lymph % (Auto) % Falls % (Auto) % Eos % (Auto) % Baso % (Auto) % Neut # (Auto) (1.40-6.50) K/uL Lymph # (Auto) (1.20-3.40) K/uL Falls # (Auto) (0.11-0.59) K/uL Eos # (Auto) (0.00-0.50) K/uL Baso # (Auto) (0.00-0.20) K/uL Immature Gran # (Auto) (0.01-0.20) K/uL Sodium (136-145) mmol/L Potassium (3.5-5.1) mmol/L Chloride (98-107) mmol/L Carbon Dioxide (21-32) mmol/L Anion Gap (3-11) BUN (6-23) mg/dl Creatinine (0.6-1.4) mg/dl Est Cr Clr Drug Dosing ml/min Est GFR ( Amer) ml/min Est GFR (Non-Af Amer) ml/min BUN/Creatinine Ratio (10-20) Glucose (70-99(Fasting)) mg/dl POC Glucose (70-99) mg/dl Estimat Average Glucose mg/dl Hemoglobin A1c (4.5-5.6) % Calcium (8.6-10.3) mg/dl Phosphorus (2.5-4.9) mg/dl Magnesium (1.7-2.4) mg/dl Total Bilirubin (0.2-1.0) mg/dl AST (13-39) U/L ALT (7-52) U/L Alkaline Phosphatase (34-104) U/L Total Protein (6.0-8.3) gm/dl Albumin (3.4-5.0) gm/dl Globulin (2.5-4.0) gm/dl Albumin/Globulin Ratio (0.9-2) Vitamin B12 (180-914) pg/ml Urine Color Yellow Urine Appearance Cloudy A (Clear) Urine pH 8.5 H (4.5-7.5) Ur Specific [place] > 1.045 H (1.000-1.030) Urine Protein 1+ H (Negative) Urine Glucose (UA) Negative (Negative) Urine Ketones Negative (Negative) Urine Blood Negative (Negative) Urine Nitrite Negative (Negative) Urine Bilirubin Negative (Negative) Urine Urobilinogen Negative (Negative) Ur Leukocyte Esterase Negative (Negative) Urine WBC (Auto) 0-5 (0-5) /hpf Urine RBC (Auto) 3-5 H (0-2) /hpf U Hyaline Cast (Auto) 0-2 (0-2) /lpf U Epithel Cells (Auto) 0-2 (0-2) /hpf Urine Bacteria (Auto) None Seen (None Seen) Nasal Screen MRSA (PCR) (Negative) Adenovirus (PCR) Not Detected (NotDetected) B. pertussis DNA (PCR) Not Detected (NotDetected) B.parapertussis DNA PCR Not Detected (NotDetected) C. pneumoniae DNA (PCR) Not Detected (NotDetected) Coronavirus OC43 (PCR) Not Detected (NotDetected) Coronavirus HKU1 (PCR) Not Detected (NotDetected) Coronavirus 229E (PCR) Not Detected (NotDetected) SARS-CoV-2 (PCR) Not Detected (NotDetected) Coronavirus NL63 (PCR) Not Detected (NotDetected) Human Metapneumovir PCR Not Detected (NotDetected) Influenza Type A (PCR) Not Detected (NotDetected) Influenza Type B (PCR) Not Detected (NotDetected) M. pneumoniae (PCR) Not Detected (NotDetected) Parainfluenza 1 (PCR) Not Detected (NotDetected) Parainfluenza 2 (PCR) Not Detected (NotDetected) Parainfluenza 3 (PCR) Not Detected (NotDetected) Parainfluenza 4 (PCR) Not Detected (NotDetected) RSV (PCR) Not Detected (NotDetected) Entero/Rhino (PCR) Not Detected (NotDetected) PG Care Time/CCT Total # of Minutes Spent Total Time Spent with Patient: Total time spent is greater than 50% in coordination of care (as documented) at patient's floor/unit and/or counseling patient: Coding Level of Care Code 10180 INT INP/OBS CARE 255MIN Diagnoses Pneumonia J18.9 Laterality: right Lung location: unspecified part of lung Pneumonia type: due to unspecified organism (1) Pneumonia Laterality: right Lung location: unspecified part of lung Pneumonia type: due to unspecified organism Qualified Code(s): J18.9 - Pneumonia, unspecified organism
[2024-03-19] MEDS: AMPICILLIN/SULBACTAM SOD 3,000 MG/100 ML BAG IV SCH (10:57)
--- OUTSIDE RECORDS SUMMARY | 2024-03-19 15:04 | External Medical Summary | Summary of Care ---
Author Name Unknown Organization [facility] Address [address] [place] [address] Phone [phone] Care Team Providers Care Felt Washing Machine Tender Name Role Phone Kristine Augustin MD Primary Care Provider [phone] Encounter Details Date Type Department Care Team (Late st Contact Info) Description 03/19/2024 Orders Only General Internal Medicine [facility] [address] [facility] [place] [address] Kristine Augustin MD [address] [facility] [address] Allergies Active Allergy Reactions Criticality Noted Date Comments Dust 10/30/2020 Pollen 02/19/2011 Hay Fever documented as of this encounter (statuses as of 03/19/2024) Medications Medication Sig Dispensed Refills Start Date End Date Status [id number] OIL-VITAMIN E PO CAPS one capsule by [...] 24 Hour (Imdur)Indications :Coronary artery disease involving [place] coronary artery of [place] heart without angina pectoris,Aortocoro nary bypass status [...] s of coronary artery bypass graft of [place] heart with angina pectoris (HCC) TAKE ONE TABLET BY MOUTH EVERY MORNING 90 Tablet 1 11/27/2023 Active Metoprolol Tartrate 50 MG Oral Tablet (Lopressor)Indicat ions:Atheroscleros is of coronary artery bypass graft of [place] heart with angina pectoris (HCC) TAKE ONE [...] as of this encounter (statuses as of 03/19/2024) Active Problems Problem Noted Date Diagnosed Date Cerebrovascular disease, arteriosclerotic, 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 Overview: Rt basal ganglia few lacune infarcts Nonrheumatic mitral valve regurgitation 06/17/20 19 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 Prediabetes 08/17/2018 Overview: Per Prediabetes protocol #1 Coronary artery disease invo lving [place] coronary artery of [place] heart without angina pectoris Aortocoronary bypass status Gastroesophageal reflux disease without esophagi tis Dyslipidemia, goal LDL below 70 documented as of this encounter (statuses as of 03/19/2024) Resolved Problems Problem Noted Date Diagnosed Date Resolved Date Atherosclerosis of [place] co ronary artery of [place] heart with angina pectoris 04/08/20182022 Cough 07/06/2010 04/08/2018 Sinus tachycardia 07/06/2010 04/08/2018 documented as of this encounter (statuses as of 03/19/2024) Immunizations Name Administration Dates Next Due COVID-19 mRNA, LNP-s, No Pre serve, 2-Dose Series ([employer]) 02/28/2021,01/31/2021 Covid-19, Mrna, Lnp-s, Pf, B ivalent, 30 Mcg, IM, 12 yrs and above ([employer]) 05/15/2022 Pneumococcal Conjugate Vacc, 13 Valent (Prevnar) [...] 04/27/2024 11:00 AM EDT Office Visit Cardiology, [facility] [address] [place] [address] [address] [place], [address] [place] [address] Health Maintenance Due Date Last Done Comments [...] Procedure Name Priority Date/Time Associated Diagnosis Comments XR CHEST 1 VIEW Routine 03/18/2024 documented in this encounter Results * XR CHEST 1 VIEW (03/18/2024) Anatomical Region Laterality Modality Chest Other 03/18/2024 Devante Barajas MD RADIOLOGY (RAD GENER AL) documented in this encounter Care Teams Felt Washing Machine Tender Relationship Specialty Start Date End Date Kristine Augustin MD [address] [place] [address] PCP - General 06/13/10 documented as of this encounter
[2024-03-19] MEDS ORDERED: diazePAM 2 MG TABLET PO PRN (15:58)
--- NOTE | 2024-03-19 17:18 | Communication Note ---
Date of Service: March 19, 2024 Spoke to patient at length. Requesting all measures be discontinued. Discuss Comfort Care/Hospice, patient declined despite stating he wishes all "life prolonging measure be discontinued" Stated it would be best to make this decision with daughter present so everyone is on the same page regarding plans. Patient wishes to go home immediately. spoke to daughter at length about possibilities/dispo planning: -IF patient choses to leave this evening without arrangements for comfort care/hospice, it will be AMA -IF he chooses comfort care/hospice, will need to coordinate with CM in am for appropriate discharge (home v SNF) -Or we continue current course. Daughter verbalized understanding Patient to speak and come to final plan with Daughter this evening Nurse aware of conversations. Will continue current plan with [facility] until decision made.
[2024-03-19] MEDS ORDERED: LORazepam 0.5 MG in SYRINGE 0.25 ML IV PRN (19:14)
[2024-03-19] MEDS ORDERED: ONDANSETRON INJ 2 MG/ML 2 ML VIAL IV PRN (19:14)
[2024-03-19] MEDS ORDERED: ONDANSETRON 4 MG OD TAB SL PRN (19:14)
[2024-03-19] MEDS ORDERED: LORazepam 0.5 MG TAB PO PRN (19:14)
[2024-03-19] MEDS ORDERED: GLYCOPYRROLATE 0.2 MG/ML VIAL IV PRN (19:14)
[2024-03-19] MEDS: ACETAMINOPHEN 500 MG TAB PO SCH (21:00)
[2024-03-20] MEDS ORDERED: ENOXAPARIN INJ 40 MG/0.4 ML SYR SQ SCH (09:00)
[2024-03-20] MEDS ORDERED: MoRPHine SULFATE 10 MG/0.5 ML UDP PO PRN ×2 (12:41→12:55)
--- NOTE | 2024-03-20 12:54 | Hospitalist Progress Note ---
Date of Service March 20, 2024 Assessment & Plan (1) Necrotizing pneumonia: (2) Dysphagia: Plan Mr. Nas Lorenzo is a 78y/o M with PMHx significant for dyslipidemia, prediabetes, CAD s/p CABG x 2, history of ischemic stroke in 2020, mitral valve regurgitation, rheumatic heart disease, atherosclerosis of both carotid arteries, history of premature atrial contractions, BPH w/ LUTS, GERD and exercise-induced bronchospasm who presented to the ED on 03/18 for evaluation of food aversion and gradual weight loss over the past few months. He was found to have an extensive consolidation with multiple small foci of cavitation in his right upper and right middle lobes on admitting chest CT - these findings are suggestive of necrotizing pneumonia. Spoke with daughter for 30 minutes regarding patients plan for care. She states she will discuss with patient whether he wishes to pursue EGD or VFSS further. Plan is ultimately to discharge to care home as patient cannot care for self per daughter. Pending final decision from patient on EGD/VFSS, ID recommendations, and dispo with CM. On 03/19, patient elected to transition to comfort care with hopes to leave with hospice. Discussion on 03/20, patient elected to have po abx to help with symptoms of pneumonia and roxanol for airhunger. Given abx started will resume with Augmentin to complete 10 day course and emphasized focus on comfort/symptom management. Patient verbalized understanding. Dispo planning with CM #Comfort care measures Discontinued all nonessential medications PO abx x 10 days Roxanol for air hunger O2 NC prn for SOB/comfort prefers naproxen over tylenol, will transition Comfort measures per protocol #Necrotizing Pneumonia WBC 17K, Biofire negative. UA notable for RBCs, but is otherwise negative. CT chest revealed an extensive right upper lobe and right middle lobe consolidation with multiple small foci of cavitation...Scattered infectious alveolar opacities also seen within the right lower lobe. Prominent mediastinal and left supraclavicular lymph nodes Van Zosyn started on admission -MRSA negative, discontinue Vanc -Pulmonary consulted, appreciated recs -Recommends abx and ID, signed off 03/19 -Discontinue Zosyn-->on unasyn -Discontinue Abx 03/19 at patient request -Transitioned to augmentin po BID for 10 days for symptom control after long discussion with patient -Patient still declines wishing to pursue aggressive investigations and declines IV treatment -Sputum cultures and AFB ordered--NGTD -Patient declined further neb treatment -ECHO: negative for vegetations -Roxanol for air hunger #Aversion to solid foods #Weight loss Patient states he does no have issue swallowing, he just doesn't like solids any longers and prefers liquids, denies cough/aspiration/etc -Swallow eval pending--however, patient refused -GI on consult for ?EGD given issue with solids -Will continue to discuss with patient #Failure to thrive #Protein calorie malnutrition BMI 19, notable weight loss reported in last year [employer] consulted #Moderate aortic stenosis #Rheumatic Heart Disease: Patient with longstanding history of murmur and history of rheumatic heart disease having had rheumatic fever as a child per chart review. #Hypertension His BP has been persistently low in the ED - initial BP reading 83/46 when meeting with patient in the ED. discontinue po antihypertensives #Chronic normocytic anemia POA Hgb 10.6, Hct 33.1% and plt count 453. OP recent anemia work up shows normal ferritin, B12 and folate. #DMTII liberalize diet #H/O Ischemic Stroke [2020]: MRI [facility] on 09/25/2020 revealed lacunar infarcts of the right basal ganglia, right burgess radiata. He has ongoing neurologic deficits including mild dysarthria and some mild difficulties with his gait. continue with gabapentin. #CAD s/p CABG x 2 #Dyslipidemia Per [facility] documentation discovered during chart review: "Cardiac catheterization at the [facility] at that time revealed a right dominant coronary system with a 50% distal left main stenosis, 90% proximal LAD stenosis that involved the bifurcation with the first diagonal. He went on to have CABG x2 on 06/04/[address] [facility] with RODARTE to LAD and a vein graft to the circumflex coronary artery." 03/02, patient was to wear a 14-day Zio patch monitor given concern of potential atrial fibrillation; without an official diagnosis of atrial fibrillation. discontinue asa and statin #BPH w/ LUTS Chronic, stable - discontinue Flomax. Patient's daughter, Ingrid, can be contacted at the following phone #: [phone]. DVT Prophylaxis: SQ Heparin Code Status: DNR/DNI - As per discussion with the patient in the ED at time of admission. 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 Admission and Anticipated Discharge Date Admission Date: March 18, 2024 Subjective Long discussion yesterday involved transitioning to comfort measures -Patient states he does not wish to prolong his life nor spend a notable amount of time hospitalized Patient this am reports concern given sensation of SOB -Discuss doing course of oral abx for simple coverage knowing workup incomplete but to aid in general symptoms management at this time -Discussed roxanol for air hunger Patient agreed to plan and states it is aligned with his care goals Physical Exam Constitutional: frail gentleman Respiratory: coarse, cough with deep inhalation Cardiovascular: RRR, no murmur, no edema Gastrointestinal (Abdomen): normal bowel sounds, soft, nontender, no hepatosplenomegaly Results & Data Results & Data Vital Signs (Past 12 Hours) Vital Signs Temp Pulse Pulse Resp BP Pulse Ox O2 Del Method 03/20/24 09:51 36.8 C 89 16 120/70 96 Room Air 03/20/24 07:02 36.6 C 92 H 16 119/70 97 Room Air Medications Administered Home Medications Medication Instructions Recorded Confirmed Last Taken Cortisol Mop Handle Assembler Botanical 1 tab PO DAILY 09/03/20 03/18/24 09/21/20 ascorbic acid (vitamin C) 1,000 mg 1 g PO DAILY 09/03/20 03/18/24 09/21/20 tablet (Vitamin C) aspirin 81 mg tablet,delayed 81 mg PO DAILY 09/03/20 03/18/24 09/21/20 release coenzyme Q10 100 mg capsule 600 mg PO DAILY 09/03/20 03/18/24 09/21/20 (CoQ-10) garlic 2,000 mg PO DAILY 09/03/20 03/18/24 09/21/20 isosorbide mononitrate 60 mg 60 mg PO DAILYBB 09/03/20 03/18/24 09/21/20 tablet,extended release 24 hr melatonin 5 mg tablet 5 mg PO HS 09/03/20 03/18/24 09/20/20 metformin 500 mg tablet 500 mg PO BID 09/03/20 03/18/24 09/21/20 08:00 (Glucophage) nitroglycerin 0.4 mg sublingual 0.4 mg sublingual UD PRN Chest Pain 09/03/20 03/18/24 Unknown tablet (Nitrostat) pantoprazole 40 mg tablet,delayed 40 mg PO UD 09/03/20 03/18/24 09/21/20 release saw palmetto 80 mg capsule 320 mg PO BID 09/03/20 03/18/24 09/21/20 08:00 tamsulosin 0.4 mg capsule (Flomax) 0.4 mg PO HS 09/03/20 03/18/24 09/20/20 Clyde Bark Extract 1 tab PO DAILY 09/04/20 03/18/24 09/21/20 cholecalciferol (vitamin D3) 125 125 mcg PO DAILY 09/04/20 03/18/24 09/21/20 mcg (5,000 unit) tablet (Vitamin D3) multivitamin 1 tab PO DAILY 09/04/20 03/18/24 09/21/20 sennosides 8.6 mg tablet (senna) 17.2 mg PO HS 09/04/20 03/18/24 09/20/20 vitamin B complex 1 tab PO DAILY 09/04/20 03/18/24 09/21/20 atorvastatin 40 mg tablet 40 mg PO DAILY 09/22/20 03/18/24 Unknown omega 5-who-pck-fish oil 1,000 mg 1 cap PO DAILY 09/22/20 03/18/24 09/21/20 (120 mg-180 mg) capsule (Fish Oil) zinc sulfate 50 mg zinc (220 mg) 220 mg PO DAILY PRN Other 09/22/20 03/18/24 09/21/20 tablet acetaminophen 325 mg capsule 650 mg PO Q4H PRN Pain 10/24/20 03/18/24 Unknown (Tylenol) lisinopril 2.5 mg tablet 2.5 mg PO DAILY 10/24/20 03/18/24 Unknown metoprolol tartrate 50 mg tablet 12.5 mg PO BID 10/24/20 03/18/24 Unknown (Lopressor) Calcium And Magnesium 1 tab PO DAILY 03/18/24 03/18/24 Unknown gabapentin 100 mg capsule 200 mg PO HS 03/18/24 03/18/24 Unknown (Neurontin) Active Medications Generic Name Dose Route Start Last Admin Trade Name Freq PRN Reason Stop Dose Admin Acetaminophen 1,000 mg 03/19/24 22:00 03/20/24 05:41 Acetaminophen 500 Mg Tab PO 04/18/24 21:59 Not Given Q8H SOPHIA Gabapentin 200 mg 03/18/24 21:00 03/19/24 20:53 Gabapentin 100 Mg Cap PO 04/17/24 20:59 200 mg HS SOPHIA Administration Melatonin 3 mg 03/18/24 21:00 03/19/24 20:53 Melatonin 3 Mg Tab PO 04/17/24 20:59 3 mg HS SOPHIA Administration Protocol (2) Dysphagia Dysphagia type: unspecified Qualified Code(s): R13.10 - Dysphagia, unspecified
[2024-03-20] MEDS ORDERED: MoRPHine SULFATE 2 MG/ML CARP IV PRN (12:55)
[2024-03-20] MEDS: AMOXICILLIN/CLAVULANATE 875 MG TAB PO SCH (12:56)
[2024-03-20] MEDS: NAPROXEN 250 MG TAB PO SCH (13:25)
[2024-03-21 10:54] VITALS: TEMP 97.9; O2SAT 97
--- NOTE | 2024-03-21 12:52 | Hospitalist Progress Note ---
Date of Service March 21, 2024 Assessment & Plan (1) Necrotizing pneumonia: (2) Dysphagia: Plan Mr. Nas Lorenzo is a 78y/o M with PMHx significant for dyslipidemia, prediabetes, CAD s/p CABG x 2, history of ischemic stroke in 2020, mitral valve regurgitation, rheumatic heart disease, atherosclerosis of both carotid arteries, history of premature atrial contractions, BPH w/ LUTS, GERD and exercise-induced bronchospasm who presented to the ED on 03/18 for evaluation of food aversion and gradual weight loss over the past few months. He was found to have an extensive consolidation with multiple small foci of cavitation in his right upper and right middle lobes on admitting chest CT - these findings are suggestive of necrotizing pneumonia. Spoke with daughter for 30 minutes regarding patients plan for care. She states she will discuss with patient whether he wishes to pursue EGD or VFSS further. Plan is ultimately to discharge to [facility] as patient cannot care for self per daughter. Pending final decision from patient on EGD/VFSS, ID recommendations, and dispo with CM. On 03/19, patient elected to transition to comfort care with hopes to leave with hospice. Discussion on 03/20, patient elected to have po abx to help with symptoms of pneumonia and roxanol for airhunger. Given abx started will resume with Augmentin to complete 10 day course and emphasized focus on comfort/symptom management. Patient verbalized understanding. Dispo planning with CM On 03/21, patient reports feeling improved and considering pursuing EGD and VFSS. He states he will speak with his daughter and possibly request reconsultation of speech and GI, as well as ID for better/final recommendations. Plan to readdress later in the day with patient about status once daughter visits. #Comfort care measures Discontinued all nonessential medications PO abx x 10 days Roxanol for air hunger O2 NC prn for SOB/comfort prefers naproxen over tylenol, will transition Comfort measures per protocol #Necrotizing Pneumonia WBC 17K, Biofire negative. UA notable for RBCs, but is otherwise negative. CT chest revealed an extensive right upper lobe and right middle lobe consolidation with multiple small foci of cavitation...Scattered infectious alveolar opacities also seen within the right lower lobe. Prominent mediastinal and left supraclavicular lymph nodes Van Zosyn started on admission -MRSA negative, discontinue Vanc -Pulmonary consulted, appreciated recs -Recommends abx and ID, signed off 03/19 -Discontinue Zosyn-->on unasyn -Discontinue Abx 03/19 at patient request -Transitioned to Augmentin po BID for 10 days for symptom control after long discussion with patient (EOT 03/30) -Patient still declines wishing to pursue aggressive investigations and declines IV treatment -Sputum cultures and AFB ordered--NGTD -Patient declined further neb treatment -ECHO: negative for vegetations -Roxanol for air hunger #Aversion to solid foods #Weight loss Patient states he does no have issue swallowing, he just doesn't like solids any longers and prefers liquids, denies cough/aspiration/etc -Swallow eval pending--however, patient refused -GI on consult for ?EGD given issue with solids -Will continue to discuss with patient--seems patient may want to pursue #Failure to thrive #Protein calorie malnutrition BMI 19, notable weight loss reported in last year Rnp consulted--encourage liberalized diet, pureed consistency seems to help #Moderate aortic stenosis #Rheumatic Heart Disease: Patient with longstanding history of murmur and history of rheumatic heart disease having had rheumatic fever as a child per chart review. #Hypertension His BP has been persistently low in the ED - initial BP reading 83/46 when meeting with patient in the ED. discontinue po antihypertensives #Chronic normocytic anemia POA Hgb 10.6, Hct 33.1% and plt count 453. OP recent anemia work up shows normal ferritin, B12 and folate. #DMTII liberalize diet #H/O Ischemic Stroke [2020]: MRI [facility] on 09/25/2020 revealed lacunar infarcts of the right basal ganglia, right burgess radiata. He has ongoing neurologic deficits including mild dysarthria and some mild difficulties with his gait. continue with gabapentin. #CAD s/p CABG x 2 #Dyslipidemia Per [facility] documentation discovered during chart review: "Cardiac catheterization at the [facility] at that time revealed a right dominant coronary system with a 50% distal left main stenosis, 90% proximal LAD stenosis that involved the bifurcation with the first diagonal. He went on to have CABG x2 on 06/04/2010 at the [facility] with RODARTE to LAD and a vein graft to the circumflex coronary artery." 03/02, patient was to wear a 14-day Zio patch monitor given concern of potential atrial fibrillation; without an official diagnosis of atrial fibrillation. discontinue asa and statin -Consider resumption if patient wishes to pursue aggressive care once more #BPH w/ LUTS Chronic, stable - discontinue Flomax. Patient's daughter, Ingrid, can be contacted at the following phone #: [phone]. DVT Prophylaxis: SQ Heparin Code Status: DNR/DNI - As per discussion with the patient in the ED at time of admission. 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 Admission and Anticipated Discharge Date Admission Date: March 18, 2024 Subjective NAEO Reports subjective improvement overall denies any new concerns Endorses intermittent cough, but no other episodes of SOB States that he is questioning the continued comfort care measures, or if he should pursuing testing Physical Exam Constitutional: WD/WN, vitals as above Respiratory: normal respiratory effort, lungs clear to auscultation Cardiovascular: RRR, no murmur, no edema Gastrointestinal (Abdomen): normal bowel sounds, soft, nontender, no hepatosplenomegaly Results & Data Results & Data Vital Signs (Past 12 Hours) Vital Signs Temp Pulse Resp BP Pulse Ox O2 Del Method 03/21/24 10:47 36.6 C 73 21 99/60 L 97 Room Air Medications Administered Home Medications Medication Instructions Recorded Confirmed Last Taken Cortisol Fisher Oyster Botanical 1 tab PO DAILY 09/03/20 03/18/24 09/21/20 ascorbic acid (vitamin C) 1,000 mg 1 g PO DAILY 09/03/20 03/18/24 09/21/20 tablet (Vitamin C) aspirin 81 mg tablet,delayed 81 mg PO DAILY 09/03/20 03/18/24 09/21/20 release coenzyme Q10 100 mg capsule 600 mg PO DAILY 09/03/20 03/18/24 09/21/20 (CoQ-10) garlic 2,000 mg PO DAILY 09/03/20 03/18/24 09/21/20 isosorbide mononitrate 60 mg 60 mg PO DAILYBB 09/03/20 03/18/24 09/21/20 tablet,extended release 24 hr melatonin 5 mg tablet 5 mg PO HS 09/03/20 03/18/24 09/20/20 metformin 500 mg tablet 500 mg PO BID 0103/18/24 09/21/20 08:00 (Glucophage) nitroglycerin 0.4 mg sublingual 0.4 mg sublingual UD PRN Chest Pain 09/03/20 03/18/24 Unknown tablet (Nitrostat) pantoprazole 40 mg tablet,delayed 40 mg PO UD 09/03/20 03/18/24 09/21/20 release saw palmetto 80 mg capsule 320 mg PO BID 09/03/20 03/18/24 09/21/20 08:00 tamsulosin 0.4 mg capsule (Flomax) 0.4 mg PO HS 09/03/20 03/18/24 09/20/20 [place]oy Bark Extract 1 tab PO DAILY 09/04/20 03/18/24 09/21/20 cholecalciferol (vitamin D3) 125 125 mcg PO DAILY 09/04/20 03/18/24 09/21/20 mcg (5,000 unit) tablet (Vitamin D3) multivitamin 1 tab PO DAILY 09/04/20 03/18/24 09/21/20 sennosides 8.6 mg tablet (senna) 17.2 mg PO HS 09/04/20 03/18/24 09/20/20 vitamin B complex 1 tab PO DAILY 09/04/20 03/18/24 09/21/20 atorvastatin 40 mg tablet 40 mg PO DAILY 09/22/20 03/18/24 Unknown omega 9-rgu-mxa-fish oil 1,000 mg 1 cap PO DAILY 09/22/20 03/18/24 09/21/20 (120 mg-180 mg) capsule (Fish Oil) zinc sulfate 50 mg zinc (220 mg) 220 mg PO DAILY PRN Other 09/22/20 03/18/24 09/21/20 tablet acetaminophen 325 mg capsule 650 mg PO Q4H PRN Pain 10/24/20 03/18/24 Unknown (Tylenol) lisinopril 2.5 mg tablet 2.5 mg PO DAILY 10/24/20 03/18/24 Unknown metoprolol tartrate 50 mg tablet 12.5 mg PO BID 10/24/20 03/18/24 Unknown (Lopressor) Calcium And Magnesium 1 tab PO DAILY 03/18/24 03/18/24 Unknown gabapentin 100 mg capsule 200 mg PO HS 03/18/24 03/18/24 Unknown (Neurontin) Active Medications Generic Name Dose Route Start Last Admin Trade Name Freq PRN Reason Stop Dose Admin Amoxicillin/Clavulanate Potassium 1 tab 03/20/24 12:45 03/21/24 08:10 Amoxicillin/Clavulanate 875 Mg Tab PO 03/30/24 12:44 1 tab BIDM SOPHIA Administration Protocol Gabapentin 200 mg 03/18/24 21:00 03/20/24 20:52 Gabapentin 100 Mg Cap PO 04/17/24 20:59 200 mg HS SOPHIA Administration Melatonin 3 mg 03/18/24 21:00 03/20/24 20:52 Melatonin 3 Mg Tab PO 04/17/24 20:59 3 mg HS SOPHIA Administration Protocol Naproxen 250 mg 03/20/24 13:00 03/21/24 08:10 Naproxen 250 Mg Tab PO 04/19/24 12:59 250 mg BID SOPHIA Administration (2) Dysphagia Dysphagia type: unspecified Qualified Code(s): R13.10 - Dysphagia, unspecified
[2024-03-21 13:40] VITALS: PULSE 83; RESP 30
--- NOTE | 2024-03-21 16:14 | Communication Note ---
Date of Service: March 21, 2024 45 min spent at bedside with patient, daughter and son-in-law. Patient contradictory over wishes at this time. He does not wish to prolong life, he does not wish to pursue aggressive treatments; however, he is now wishing to potentially revoke ACUTE DIALYSIS REGISTERED NURSE for previously discussed EGD Discussed that there is no urgent/emergent need at this time given the initial concern was obstructive pathology for the reflux/weight loss/initial reported dysphagia, however, patient reports that he is now tolerating pureed foods and feeling much better. Patient stated that if GI will still pursue EGD tomorrow he wishes to undergo procedure. Patient wants to keep management the same at this time until GI is able to confirm utility of procedure. Patient requested probiotic. Sent TT to Dr. Christopher Cuellar to ask about utility of procedure. Will make NPO at midnight in case. Asked patient if he wishes to undergo VFSS--he is unsure and will consider contingent on EGD. Patient focused heavily on the scope at this time. Given the ongoing dynamic requests for GOC making medical decision making quite convoluted and contradictory, will consult Palliative Care to aid and facilitate the next steps in management.
[2024-03-21] MEDS: diphenhydrAMINE Capsule 25 MG CAP PO SCH (21:26)
--- NOTE | 2024-03-22 09:45 | Gastroenterology Progress Note ---
Date of Service March 22, 2024 Assessment & Plan (1) Pneumonia: Plan: 78 year old male with history of dyslipidemia, prediabetes, CAD s/p CABG x 2, history of ischemic stroke in 2020, mitral valve regurgitation, rheumatic heart disease, atherosclerosis of both carotid arteries, history of premature atrial contractions, BPH w/ LUTS, GERD and exercise-induced bronchospasm admitted to the ICU w/ necrotizing PNA, concern for aspiration PNA, he denies any obvious swallowing difficulties but suggests decreased appetite and on interest in food. He has now agreed to EGD evaluation. Maintain NPO status for EGD this AM. We appreciate assistance in the management of any serological abnormality and corrections to include: hemoglobin >7, INR <2, platelets >50,000, potassium levels >3.5 but <5.3, and sodium levels within 5 points of the reference range prior to endoscopic evaluation. Thank you for allowing us to participate in the care of this patient. Please call with any acute changes, questions or concerns. Please see addendum below with additional recommendation from my supervising physician. Pt was called for EGD. Is now refusing procedures. I will cancel the EGD order and update the endoscopy team. 03/22/24 12:58. Admission and Anticipated Discharge Date Admission Date: March 18, 2024 Subjective GI was asked to re-evaluate for EGD. NPO this AM, agreeable to EGD. Questions regarding EGD answered. Review of Systems Review of Systems: All other findings negative except as noted in HPI. Physical Exam Constitutional: WD/WN, vitals as above Thin, elderly appearing male in no acute distress. Coughing occasionally and spitting sputum into emesis bag. Respiratory: normal respiratory effort Auscultation: lungs clear to auscultation bilaterally and + diminished lung sounds + diminished bilateral bases Cardiovascular: Rate/Rhythm: regular rate and regular rhythm Gastrointestinal (Abdomen): normal bowel sounds, soft, nontender, no hepatosplenomegaly Skin: no rashes, warm and dry PG Care Time/CCT Total # of Minutes Spent Total Time Spent with Patient: Total time spent is greater than 50% in coordination of care (as documented) at patient's floor/unit and/or counseling patient: Coding Level of Care Code None Diagnoses Pneumonia J18.9 Laterality: right Lung location: unspecified part of lung Pneumonia type: due to unspecified organism (1) Pneumonia Laterality: right Lung location: unspecified part of lung Pneumonia type: due to unspecified organism Qualified Code(s): J18.9 - Pneumonia, unspecified organism
[2024-03-22] MEDS ORDERED: MoRPHine SULFATE 10 MG/0.5 ML UDP PO PRN (13:18)
[2024-03-22] MEDS: ADVANCED PROBIOTIC 625 MG CAPSULE PO SCH (13:19)
--- NOTE | 2024-03-22 13:24 | Hospitalist Progress Note ---
Date of Service March 22, 2024 Assessment & Plan (1) Necrotizing pneumonia: (2) Dysphagia: (3) Type 2 diabetes mellitus: Plan Patient with ongoing necrotizing pneumonia, progressive weakness, poor oral intake and difficulty swallowing to the point where he is unable to sustain adequate nutrition. Patient is quite clear and able to make an informed decision on his goals of care. His desire is to stop all aggressive interventions, procedures, treatments and pursue hospice care. Specifically asked patient about antibiotics. He wishes that they be discontinued Informed GI team that patient did not want to proceed with EGD Informed care team to coordinate hospice care for him Orders adjusted to reflect patient's wishes for comfort measures only. Time spent in coordination of care and at the bedside 55 minutes Admission and Anticipated Discharge Date Admission Date: March 18, 2024 Subjective Extensive conversation with patient at bedside. Reviewed what services hospice can provide at the home and at other care facilities. Patient was quite clear that he did not want any further procedures or testing. He was quite clear that he did not want the EGD today. His main goal of care is to be someplace where it is quiet and peaceful and he can allow the natural progression of his disease states to occur. Physical Exam Physical Exam: Constitutional: Alert, weak, nontoxic HEENT: Tongue dry Lungs: decreased, no wheezes rales or rhonchi CV: S1-S2, regular Abdomen: Soft, nontender, nondistended Extremities: No significant edema Neuro: No focal deficits, generalized weakness Psych: Mentation clear, understands his condition and the consequences of his decisions (2) Dysphagia Dysphagia type: unspecified Qualified Code(s): R13.10 - Dysphagia, unspecified
[2024-03-22] MEDS: PROPOFOL IV EMULSION 10 MG/ML 20 ML VIAL IV ONE ×2 (17:18)
[2024-03-23] MEDS ORDERED: ACETAMINOPHEN 325 MG TAB PO PRN (13:28)
--- NOTE | 2024-03-23 13:37 | Hospitalist Progress Note ---
Date of Service March 23, 2024 Assessment & Plan (1) Necrotizing pneumonia: (2) Dysphagia: (3) Type 2 diabetes mellitus: Plan Patient understands pursuing personal care where he can continue his comfort measures Discussed pluses and minuses of Aleve PM at bedtime. Patient agreeable to a trial of Tylenol and Benadryl elixir at bedtime for sleep Patient confirms that his desires to be kept comfortable with minimal medications. Certainly does not want any procedures or aggressive interventions. Patient did inquire about possibly a antidepressant. We discussed SSRIs and benzodiazepines. After reviewing side effects of the medications and the potential slower onset of action of the SSRIs and the need to titrate those doses over the course of several days to weeks, patient chose to not risk any type of side effects and continue with the current medications that he is on based on his desire to minimize medications and be kept comfortable Updated patient daughter via phone 51 minutes spent at the bedside and communication with patient, answering questions about his care and providing emotional support Admission and Anticipated Discharge Date Admission Date: March 18, 2024 Subjective Patient reports that he got a good 3 to 4 hours of uninterrupted sleep last night. Asking about Aleve PM at bedtime Physical Exam Physical Exam: Constitutional: Alert, underweight and frail HEENT: Mucous membranes moist. Lungs: Normal respiratory rate CV: regular Abdomen: Soft, Extremities: No significant edema Neuro: No focal deficits Psych: Cooperative, normal mood Results & Data Results & Data Vital Signs (Past 12 Hours) Vital Signs O2 Del Method 03/23/24 07:50 Room Air (2) Dysphagia Dysphagia type: unspecified Qualified Code(s): R13.10 - Dysphagia, unspecified
[2024-03-23] MEDS: ASPIRIN 81 MG ECTAB PO SCH (16:13)
[2024-03-23] MEDS: diphenhydrAMINE HCL 25 MG/10 ML UDC PO SCH (20:57)
[2024-03-23] MEDS: ACETAMINOPHEN 325 MG TAB PO SCH (20:57)
[2024-03-24] MEDS ORDERED: ACETAMINOPHEN 325 MG TAB PO PRN (10:58)
--- NOTE | 2024-03-24 15:12 | Hospitalist Progress Note ---
Date of Service March 24, 2024 Assessment & Plan (1) Necrotizing pneumonia: (2) Dysphagia: (3) Type 2 diabetes mellitus: Plan Long discussion with patient again about his goals of care. He remains committed to hospice and wanting to be kept comfortable at home and not pursuing any aggressive interventions for acute issues such as an acute infection, heart attack, stroke etc. However he is quite distressed about his risk of developing a DVT due to his immobility. Requesting to be placed on Eliquis. I did explain to him that that risk would be part of him excepting natural progression of his disease state however he still requesting this treatment. Reviewed outside EMR, reviewed Zio patch report, no definitive atrial fibrillation. Will start Eliquis at VTE prophylaxis dosing more to give the patient relief of his anxiety and fear of developing a VTE. Continue to pursue possible placement for ongoing care, [facility] is evaluating Discontinue Naprosyn at patient's request 51 minutes spent on coordinating care, review of record, communication with [facility] team and patient Admission and Anticipated Discharge Date Admission Date: March 18, 2024 Subjective Patient extremely anxious and concerned about his risk for developing DVT. Requesting to be placed on Eliquis VTE prophylaxis dosing. He states he has had a Zio patch performed but did not get results. He is unsure if he has ever had documented atrial fibrillation. Physical Exam Physical Exam: Constitutional: Alert, frail and weak Lungs: No respiratory distress CV: S1-S2, regular Neuro: No focal deficits, generalized weakness Psych: Cooperative, normal mood, some short-term memory deficits (2) Dysphagia Dysphagia type: unspecified Qualified Code(s): R13.10 - Dysphagia, unspecified
[2024-03-24] MEDS: OXYBUTYNIN CHLORIDE XL 5 MG TABCR PO SCH (17:12)
[2024-03-24] MEDS: APIXABAN 2.5 MG TAB PO SCH (19:56)
[2024-03-25] MEDS ORDERED: ACETAMINOPHEN 500 MG TAB PO SCH (09:00)
[2024-03-25] MEDS: ACETAMINOPHEN 325 MG TAB PO SCH (09:22)
--- NOTE | 2024-03-25 10:07 | Hospitalist Progress Note ---
Date of Service March 25, 2024 Assessment & Plan (1) Necrotizing pneumonia: (2) Dysphagia: (3) Type 2 diabetes mellitus: Plan Continue current medical care Reviewed POLST form with him, he completed the form and signed the form. Case management to continue to pursue transfer to [facility] 51 minutes spent in coordinating care with patient at bedside Admission and Anticipated Discharge Date Admission Date: March 18, 2024 Subjective No acute issues overnight. Had complained of some overactive bladder symptoms. Oxybutynin started. He seems to appreciate that. Physical Exam Physical Exam: Generally: Awake, alert sitting up in bed, nontoxic in appearance Respiratory: No acute respiratory distress CV: Regular Neuro: Cooperative and interactive, capable of making decisions (2) Dysphagia Dysphagia type: unspecified Qualified Code(s): R13.10 - Dysphagia, unspecified
--- NOTE | 2024-03-26 12:10 | Hospitalist Progress Note ---
Date of Service March 26, 2024 Assessment & Plan (1) Necrotizing pneumonia: (2) Dysphagia: (3) Type 2 diabetes mellitus: Plan Continue current care, patient comfortable Discussed possible titration of Ditropan over the next day or 2 if his symptoms are still bothersome [facility] minutes spent at bedside Admission and Anticipated Discharge Date Admission Date: March 18, 2024 Subjective Patient states he is actually starting to feel little bit stronger. Has not really noticed a definite change in his urinary frequency or urgency with the Ditropan yet. Patient eating a little bit better. Physical Exam Physical Exam: Generally: Sitting up in bed, frail and weak Respiratory: No distress CV: Controlled rate Extremities: No edema Psych: Patient is at peace with his decisions. Able to carry on an in-depth conversation, [facility] awaiting final financials from his daughter (2) Dysphagia Dysphagia type: unspecified Qualified Code(s): R13.10 - Dysphagia, unspecified
[2024-03-27] MEDS: MINERAL OIL ENEMA 133 ML BTL PR ONE (11:24)
[2024-03-27] MEDS: LACTULOSE SYRUP 20 GM/30 ML UDC PO SCH (11:25)
--- NOTE | 2024-03-27 11:38 | Hospitalist Progress Note ---
Date of Service March 27, 2024 Assessment & Plan (1) Necrotizing pneumonia: (2) Dysphagia: (3) Type 2 diabetes mellitus: (4) Constipation by delayed colonic transit: (5) Coronary artery disease: (6) Cerebrovascular disease: Plan Patient distressed by his constipation, request that oxybutynin be discontinued due to the fact that this may be side effect of that medication with the constipation. Urinary frequency is tolerable Enema today, oral lactulose for the next 24 hours then will need to start regular bowel regimen Continue other care Continue to pursue placement Admission and Anticipated Discharge Date Admission Date: March 18, 2024 Subjective Patient reporting constipation Physical Exam Physical Exam: Constitutional: Alert, thin, frail, weak HEENT: Mucous membranes moist. Lungs: Clear to auscultation, decreased, no wheezes rales or rhonchi CV: S1-S2, regular Abdomen: Soft, nontender, nondistended, palpable stool in left lower quadrant Extremities: No significant edema Neuro: No focal deficits, generalized weakness Psych: Cooperative, normal mood (2) Dysphagia Dysphagia type: unspecified Qualified Code(s): R13.10 - Dysphagia, unspecified
[2024-03-28] MEDS: DOCUSATE SODIUM/SENNA 50/8.6MG TAB PO SCH (07:39)
[2024-03-28] MEDS: POLYETHYLENE (MIRALAX) 17 GM PACK PO SCH (07:39)
--- NOTE | 2024-03-28 11:10 | Hospitalist Progress Note ---
Date of Service March 28, 2024 Assessment & Plan (1) Necrotizing pneumonia: (2) Dysphagia: (3) Type 2 diabetes mellitus: (4) Constipation by delayed colonic transit: (5) Coronary artery disease: (6) Cerebrovascular disease: (7) Musculoskeletal disease: Plan Add K-pad for comfort Continue other medical care Spent some significant time explaining my plan for his bowel regimen Admission and Anticipated Discharge Date Admission Date: March 18, 2024 Subjective Patient reports had a good bowel movement yesterday. Now complaining of some musculoskeletal back and scapular pain. Physical Exam Physical Exam: Constitutional: Alert, frail and weak Lungs: No respiratory distress CV: Regular Neuro: No focal deficits Psych: Cooperative, normal mood (2) Dysphagia Dysphagia type: unspecified Qualified Code(s): R13.10 - Dysphagia, unspecified
--- NOTE | 2024-03-29 15:28 | Hospitalist Progress Note ---
Date of Service March 29, 2024 Assessment & Plan (1) Necrotizing pneumonia: (2) Dysphagia: (3) Type 2 diabetes mellitus: (4) Constipation by delayed colonic transit: (5) Coronary artery disease: (6) Cerebrovascular disease: (7) Musculoskeletal disease: Plan Continue current medications for comfort Continue to coordinate plans for discharge to [facility] Admission and Anticipated Discharge Date Admission Date: March 18, 2024 Subjective No acute issues overnight. Patient pleased with how he is doing at this time Physical Exam Physical Exam: Constitutional: Alert, frail, weak Lungs: No respiratory distress CV: regular Abdomen: Soft, Neuro: No focal deficits Psych: Cooperative, normal mood (2) Dysphagia Dysphagia type: unspecified Qualified Code(s): R13.10 - Dysphagia, unspecified
[2024-03-30] MEDS: ACETAMINOPHEN 325 MG TAB PO PRN (06:31)
--- NOTE | 2024-03-30 12:35 | Discharge Summary ---
Discharge Summary Date of Service March 30, 2024 Principal Dx & Hospital Course #1 = Principal Diagnosis (1) Necrotizing pneumonia: (2) Dysphagia: (3) Type 2 diabetes mellitus: (4) Constipation by delayed colonic transit: (5) Coronary artery disease: (6) Cerebrovascular disease: (7) Musculoskeletal disease: Plan Patient is a 78-year-old gentleman who presents to the emergency room with weight loss generalized weakness and incessant cough and difficulty swallowing. Patient was admitted for possible necrotizing pneumonia. Patient was cared for in the hospital. Empirically started on broad-spectrum antibiotics. Echo cardiogram was performed, pulmonary consultation and GI consultation was obtained. Due to his dysphagia it was recommended that he undergo EGD. Throughout this time extensive conversation occurred with the patient about his goals of care. He really wanted to be kept comfortable and really did not want to undergo any aggressive procedures. Initially he was back and forth and whether he wanted to do an EGD and completely turned to comfort care. After several days of conversation the patient chose to move forward with comfort care. He also very interested in pursuing hospice care. The patient's condition was so deconditioned that he could no longer care for himself at home and home hospice was not an option. Case management was involved in his care and assisted with finding placement. During this time the patient's medical regimen was focused on making sure he is comfortable. Patient had extreme amount of anxiety about potentially getting a DVT and requested to be placed on Eliquis for prophylaxis. He was put on a good bowel regimen after his bowels were cleared with a more aggressive interventions. His diet was as he could tolerate initially on pured but can advance to minced diet. He chose not to undergo EGD and he chose to stop all antibiotics. A POLST form was completed and indicated that he would want comfort measures only. It was coordinated for him to get his ongoing care at [facility]. The patient is looking forward to being at a place where he can get rest and be at peace. He be discharged to [facility] with hospice involvement and be kept comfortable further manger of his days. Notes For Next Care Provider Medication Changes From Visit Extensive decrease in his multiple medications due to his choice to pursue comfort care, see med list Admission HPI Per Admitting Provider Nas Lorenzo is a 78y/o M with PMHx significant for dyslipidemia, prediabetes, CAD s/p CABG x 2, history of ischemic stroke in 2020, mitral valve regurgitation, rheumatic heart disease, atherosclerosis of both carotid arteries, history of premature atrial contractions, BPH w/ LUTS, GERD and exercise-induced bronchospasm who presented to the ED for evaluation secondary to issues with swallowing and gradual weight loss. History obtained from patient and associated chart review. Patient has lost approximately 40-50 pounds over the past year or so. Mentions he used to weight 165 pounds and now is weighing around 125 at home. Reports he has not been "feeling well" for approximately a year and a half. Mentions that he has been experiencing an incessant productive cough for a couple of months as well. He does not recall any fevers. Patient mentions that he cannot swallow well at all. Per ED provider, patient can only tolerate Boost drinks and strict fluid intake (Gatorade, water). Reports that he cannot swallow solid foods - believes his esophagus may be the problem. He does mention a lack of appetite. He has been feeling excessively fatigued lately. Denies any shortness of breath or chest pain. He does have a daughter, Ingrid, who lives locally that visits him from time to time. His daughter works as a chiropractor. The patient states that he is responsible for his own meals. He has not had any vomiting or diarrhea. Per ED provider, patient reported that he feels he can no longer be at home by himself. Patient questioning if he could have "long COVID" given his lethargy. Patient was using a cane or walker to ambulate following his stroke in 2020, but reports that he has not been using either device as of lately. Admission Exam Per Admitting Provider See H&P Discharge Exam Generally: Patient weak, frail and cachectic Respiratory: No distress Neuro generalized weakness Psych: Patient is alert, able to make his own decisions, cooperative, normal mood Updated Medication List Medication Instructions Recorded Confirmed Type Cortisol Psychologist Social Botanical 1 tab PO DAILY 09/03/20 03/18/24 History ascorbic acid (vitamin C) 1,000 mg 1 g PO DAILY 09/03/20 03/18/24 History tablet (Vitamin C) aspirin 81 mg tablet,delayed 81 mg PO DAILY 09/03/20 03/18/24 History release coenzyme Q10 100 mg capsule 600 mg PO DAILY 09/03/20 03/18/24 History (CoQ-10) garlic 2,000 mg PO DAILY 09/03/20 03/18/24 History isosorbide mononitrate 60 mg 60 mg PO DAILYBB 09/03/20 03/18/24 History tablet,extended release 24 hr melatonin 5 mg tablet 5 mg PO HS 09/03/20 03/18/24 History metformin 500 mg tablet 500 mg PO BID 09/03/20 03/18/24 History (Glucophage) nitroglycerin 0.4 mg sublingual 0.4 mg sublingual UD PRN Chest Pain 09/03/20 03/18/24 History tablet (Nitrostat) pantoprazole 40 mg tablet,delayed 40 mg PO UD 09/03/20 03/18/24 History release saw palmetto 80 mg capsule 320 mg PO BID 09/03/20 03/18/24 History tamsulosin 0.4 mg capsule (Flomax) 0.4 mg PO HS 09/03/20 03/18/24 History [place] Bark Extract 1 tab PO DAILY 09/04/20 03/18/24 History cholecalciferol (vitamin D3) 125 125 mcg PO DAILY 09/04/20 03/18/24 History mcg (5,000 unit) tablet (Vitamin D3) multivitamin 1 tab PO DAILY 09/04/20 03/18/24 History sennosides 8.6 mg tablet (senna) 17.2 mg PO HS 09/04/20 03/18/24 History vitamin B complex 1 tab PO DAILY 09/04/20 03/18/24 History atorvastatin 40 mg tablet 40 mg PO DAILY 09/22/20 03/18/24 History omega 5-fqf-bab-fish oil 1,000 mg 1 cap PO DAILY 09/22/20 03/18/24 History (120 mg-180 mg) capsule (Fish Oil) zinc sulfate 50 mg zinc (220 mg) 220 mg PO DAILY PRN Other 09/22/20 03/18/24 History tablet acetaminophen 325 mg capsule 650 mg PO Q4H PRN Pain 10/24/20 03/18/24 History (Tylenol) lisinopril 2.5 mg tablet 2.5 mg PO DAILY 10/24/20 03/18/24 History metoprolol tartrate 50 mg tablet 12.5 mg PO BID 10/24/20 03/18/24 History (Lopressor) Calcium And Magnesium 1 tab PO DAILY 03/18/24 03/18/24 History gabapentin 100 mg capsule 200 mg PO HS 03/18/24 03/18/24 History (Neurontin) acetaminophen 325 mg tablet See Rx Instructions .Route 03/30/24 Rx .COMPLEX #90 tabs apixaban 2.5 mg tablet (Eliquis) 2.5 mg PO BID #60 tabs 03/30/24 Rx diphenhydramine HCl 12.5 mg/5 mL 25 mg (10 mL) PO HS #1,000 mL 03/30/24 Rx oral elixir lorazepam 0.5 mg tablet 0.5 mg PO Q4H PRN anxiety, 03/30/24 Rx discomfort #8 tabs morphine concentrate 100 mg/5 mL 10 mg (0.5 mL) PO Q1H PRN pain, 03/30/24 Rx (20 mg/mL) oral solution dyspnea, discomfort #20 mL ondansetron 4 mg disintegrating 4 mg sublingual Q4H PRN nausea and 03/30/24 Rx tablet vomiting #10 tabs polyethylene glycol 3350 17 gram 17 g PO DAILY #30 ea 03/30/24 Rx oral powder packet (Miralax) sennosides 8.6 mg-docusate sodium 1 tab PO BID #60 tabs 03/30/24 Rx 50 mg tablet (Senokot-S) Hospital Stay Data Consultations 03/18/24 09:41 ED Decision to Admit Stat 03/18/24 10:07 Consult Gastroenterology Routine 03/18/24 11:23 Consult Pulmonology Routine Procedures Performed Operation Date: 03/22/24 16:45 <No data on this case meets the specified criteria> Diagnostic Imagining Performed 03/18/24 08:45 CT chest diagnostic w con Stat Pending Results Patient Have Any Pending Studies at Discharge: No Discharge Instructions Given to Patient (Per Discharging Provider) See POLST form. Patient requesting comfort measures only Consider hospice care Total Time Total Time Spent Total Time Spent (In Minutes): 41
[2024-03-30 13:13] VITALS: BP 99/60
== END 2024-03-30 17:03 | disposition hospice, home (50) | DRG 177 ==
LOC: ED 07:23 → SUATTDRO 10:07 → EDINP 13:44 → 1E 14:15 → 2N 03-19 15:12 → 3W 03-19 20:51